=== PATIENT | female | born 1990 | race Caucasian/White ===

== ENCOUNTER 2017-09-05 17:19 | Emergency (ER) | payer SELFPAY ==
--- NOTE | 2017-09-05 17:45 | ER ---
Nurse's Notes [facility] Name: Alanna Dumont Age: 27 yrs Sex: Female : 1990 Arrival Date: 09/05/2017 Time: 17:21 Bed 27 Private MD: None, None Diagnosis: Cough Presentation: 09/05 17:25 Presenting complaint: Patient states: "I've had bronchitis for like a month and I have aj been to the ER in [place] twice and finished the medicine and I am not better.". Transition of care: patient was not received from another setting of care. Onset of symptoms was July 2017. Risk Assessment: Do you want to hurt yourself or someone else? Patient reports no desire to harm self or others. Care prior to arrival: None. 17:25 Method Of Arrival: Ambulatory 17:25 Acuity: LUIS FELIPE 4 aj 18:32 Initial Sepsis Screen: Does the patient meet any 2 criteria? No. Patient's initial lk1 sepsis screen is negative. Does the patient have a suspected source of infection? No. Patient's initial sepsis screen is negative. Triage Assessment: 17:26 General: Appears in no apparent distress. comfortable, Behavior is calm, cooperative, aj appropriate for age. Pain: Denies pain. Neuro: Level of Consciousness is awake, alert, obeys commands, Oriented to person, place, time, situation, Appropriate for age. Respiratory: Reports cough that is non-productive, Breath sounds are clear. Derm: Skin is intact, is healthy with good turgor, Skin is pink, warm \\T\\ dry. normal. 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 - Social history:: Smoking status: Patient/guardian denies using tobacco, Patient/guardian denies using alcohol, street drugs. - Ebola Screening: : No symptoms or risks identified at this time. Screenin:32 Abuse screen: Denies threats or abuse. Denies injuries from another. Nutritional lk1 screening: No deficits noted. Tuberculosis screening: No symptoms or risk factors identified. Fall Risk None identified. Assessment: 17:45 General: Appears in no apparent distress. Behavior is calm, cooperative, appropriate lk1 for age. Cardiovascular: Heart tones S1 S2 present Capillary refill is brisk. Respiratory: Reports shortness of breath on exertion cough that is dry, persistent Airway is patent Trachea midline Respiratory effort is even, unlabored, Respiratory pattern is regular, symmetrical, Breath sounds are clear bilaterally. EENT: No signs and/or symptoms were reported regarding the EENT system. Vital Signs: 17:26 BP 103 / 83; Pulse 74; Resp 16; Temp 98.2; Pulse Ox 98% on R/A; Weight 54.43 kg; Height aj 5 ft. 5 in. (165.10 cm); 17:26 Body Mass Index 19.97 (54.43 kg, 165.10 cm) aj ED Course: 17:21 Patient arrived in ED. mr 17:22 None, None is Private Physician. mr 17:26 Triage completed. aj 17:26 Arm band placed on left wrist. Patient placed in an exam room. aj 17:31 Kristi Neely FNP-C is [facility]. sn 17:31 Miguel Jeffrey MD is Attending Physician. snw 18:03 Delfina Dowling, ADAM is Primary Nurse. lk1 18:32 No provider procedures requiring assistance completed. Patient did not have IV access lk1 during this emergency room visit. 18:35 Patient has correct armband on for positive identification. Bed in low position. Call lk1 light in reach. Administered Medications: No medications were administered Outcome: 17:44 Discharge ordered by MD. snw 18:00 Discharged to home ambulatory, with family. lk1 18:00 Condition: good 18:00 Discharge instructions given to patient, family, Instructed on discharge instructions, follow up and referral plans. medication usage, safety practices, Demonstrated understanding of instructions, follow-up care, medications, Prescriptions given X 2. 18:03 Patient left the ED. lk1 Signatures: Rebecca Valentino RN RN aj Therrien, Shelly, FNP-C FNP-Alysha Hughes mr Delfina Dowling, RN RN lk1
--- NOTE | 2017-09-05 17:45 | EDPHYS ---
Physician Documentation [facility] Name: Alanna Dumont Age: 27 yrs Sex: Female : 1990 Arrival Date: 09/05/2017 Time: 17:21 Bed 27 Private MD: None, None ED Physician Miguel Jeffrey HPI: 09/05 17:45 This 27 yrs old Female presents to ER via Ambulatory with complaints of snw Cough, Congestion. 17:45 The patient or guardian reports cough. Onset: The symptoms/episode began/occurred snw gradually, 1 month(s) ago, and became persistent. Associated signs and symptoms: The patient has no apparent associated signs or symptoms. It is unknown whether or not the patient has had similar symptoms in the past. Seen at [facility] x 2, lost inhaler per report. 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 - Social history:: Smoking status: Patient/guardian denies using tobacco, Patient/guardian denies using alcohol, street drugs. - Ebola Screening: : No symptoms or risks identified at this time. ROS: 17:47 Constitutional: Negative for fever, chills, and weight loss, " just don't feel good" snw Eyes: Negative for injury, pain, redness, and discharge, ENT: Negative for injury, pain, and discharge, Neck: Negative for injury, pain, and swelling, Cardiovascular: Negative for chest pain, palpitations, and edema, Abdomen/GI: Negative for abdominal pain, nausea, vomiting, diarrhea, and constipation, Back: Negative for injury and pain, : Negative for injury, bleeding, discharge, and swelling, MS/Extremity: Negative for injury and deformity, Skin: Negative for injury, rash, and discoloration, Neuro: Negative for headache, weakness, numbness, tingling, and seizure. 17:47 Respiratory: Positive for cough, with no reported sputum. Exam: 17:43 Constitutional: This is a well developed, well nourished patient who is awake, alert, snw and in no acute distress. Head/Face: Normocephalic, atraumatic. Eyes: Pupils equal round and reactive to light, extra-ocular motions intact. Lids and lashes normal. Conjunctiva and sclera are non-icteric and not injected. Cornea within normal limits. Periorbital areas with no swelling, redness, or edema. ENT: Nares patent. No nasal discharge, no septal abnormalities noted. Tympanic membranes are normal and external auditory canals are clear. Oropharynx with no redness, swelling, or masses, exudates, or evidence of obstruction, uvula midline. Mucous membranes moist. Neck: Trachea midline, no thyromegaly or masses palpated, and no cervical lymphadenopathy. Supple, full range of motion without nuchal rigidity, or vertebral point tenderness. No Meningismus. Chest/axilla: Normal chest wall appearance and motion. Nontender with no deformity. No lesions are appreciated. Cardiovascular: Regular rate and rhythm with a normal S1 and S2. No gallops, murmurs, or rubs. Normal PMI, no JVD. No pulse deficits. Abdomen/GI: Soft, non-tender, with normal bowel sounds. No distension or tympany. No guarding or rebound. No evidence of tenderness throughout. Back: No spinal tenderness. No costovertebral tenderness. Full range of motion. Skin: Warm, dry with normal turgor. Normal color with no rashes, no lesions, and no evidence of cellulitis. MS/ Extremity: Pulses equal, no cyanosis. Neurovascular intact. Full, normal range of motion. Neuro: Awake and alert, GCS 15, oriented to person, place, time, and situation. Cranial nerves II-XII grossly intact. Motor strength 5/5 in all extremities. Sensory grossly intact. Cerebellar exam normal. Normal gait. 17:43 Respiratory: the patient does not display signs of respiratory distress, Respirations: normal, Breath sounds: wheezing: that is mild, bronchitic cough. Vital Signs: 17:26 BP 103 / 83; Pulse 74; Resp 16; Temp 98.2; Pulse Ox 98% on R/A; Weight 54.43 kg; Height aj 5 ft. 5 in. (165.10 cm); 17:26 Body Mass Index 19.97 (54.43 kg, 165.10 cm) aj MDM: 17:33 Patient medically screened. snw 17:46 Data reviewed: vital signs, nurses notes. Data interpreted: Pulse oximetry: on room air snw is 98 %. Interpretation: normal. Counseling: I had a detailed discussion with the patient and/or guardian regarding: the historical points, exam findings, and any diagnostic results supporting the discharge/admit diagnosis, the presence of at least one elevated blood pressure reading (>120/80) during this emergency department visit, the need for outpatient follow up, to return to the emergency department if symptoms worsen or persist or if there are any questions or concerns that arise at home. Administered Medications: No medications were administered Disposition: 22:14 Co-signature as Attending Physician, Miguel Jeffrey MD I agree with the assessment and kdr plan of care. Disposition: 09/05/17 17:44 Discharged to Home. Impression: Cough. - Condition is Stable. - Discharge Instructions: Cool Mist Vaporizers, Cough, Adult, [id number]. - Prescriptions for Zyrtec 10 mg Oral Tablet - take 1 tablet by ORAL route once daily As needed; 20 tablet. Albuterol Sulfate 90 mcg/actuation - inhale 1-2 puff by INHALATION route every 4-6 hours; 1 Inhaler. - Work release form, Medication Reconciliation Form, Thank You Letter, Antibiotic Education, Prescription Opioid Use form. - Follow up: Private Physician; When: 2 - 3 days; Reason: Recheck today's complaints, Continuance of care, Re-evaluation by your physician. Follow up: Emergency Department; When: As needed; Reason: Worsening of condition. Signatures: Rebecca Valentino RN RN aj Rittger, Kevin, MD MD kdr Therrien, Shelly, INSURANCE ACTUARY-C INSURANCE ACTUARY-Csnw Delifna Dowling RN RN lk1 Corrections: (The following items were deleted from the chart) 17:47 17:47 Constitutional: Negative for fever, chills, and weight loss, Eyes: Negative for snw injury, pain, redness, and discharge, ENT: Negative for injury, pain, and discharge, Neck: Negative for injury, pain, and swelling, Cardiovascular: Negative for chest pain, palpitations, and edema, Abdomen/GI: Negative for abdominal pain, nausea, vomiting, diarrhea, and constipation, Back: Negative for injury and pain, : Negative for injury, bleeding, discharge, and swelling, MS/Extremity: Negative for injury and deformity, Skin: Negative for injury, rash, and discoloration, Neuro: Negative for headache, weakness, numbness, tingling, and seizure, snw 18:03 17:44 09/05/2017 17:44 Discharged to Home. Impression: Cough. Condition is Stable. lk1 Forms are Medication Reconciliation Form, Thank You Letter, Antibiotic Education, Prescription Opioid Use. Follow up: Private Physician; When: 2 - 3 days; Reason: Recheck today's complaints, Continuance of care, Re-evaluation by your physician. Follow up: Emergency Department; When: As needed; Reason: Worsening of condition. snw
== END 2017-09-05 18:03 | disposition home or self-care (01) ==
LOC: ER 17:19
DX: R05 Cough (principal)
CPT/HCPCS: 99282

== ENCOUNTER 2017-12-16 12:50 | Emergency (ER) | payer SELFPAY ==
--- OUTSIDE RECORDS SUMMARY | 2017-12-16 12:52 | XMS REPORT ---
:1990 Author Organization eClinicalWorks Care Team Providers Name Role Phone Doyle Johnson Provider Role Unavailable Allergies, Adverse Reactions, Alerts Substance Reaction Event Type N.K.D.A. Info Not Available Non Drug Allergy Problems Problem Type Condition Code Onset Dates Condition Status Assessment Seasonal allergies J30.2 Active Assessment Mild intermittent asthma, J45.20 Active unspecified whether complicated Problem Seasonal allergies J30.2 Active Assessment Tobacco abuse counseling Z71.6 Active Medications Medication Code Code Instructions Start End Status Dosage System Date Date Cetirizine HCl [facility] 38508165525 10 MG Orally Active 1 tablet Once a day Claritin-D [address] [facility] 11631563840 5-120 MG Orally September 10, Nov 09, Active 1 tablet Hour every 12 hrs 2017 2017 as needed [facility] Fluticasone [facility] 58109627676 50 MCG/ACT September 10, Active 1 spray in Propionate Nasally Once a 2018 each day nostril ProAir HFA [facility] 99298054525 108 (90 Base) September 10, Active 2 puffs as MCG/ACT 2018 needed Inhalation every 6 hrs Results No Known Results Summary Purpose eClinicalWorks Submission
--- OUTSIDE RECORDS SUMMARY | 2017-12-16 12:52 | XMS REPORT ---
:1990 Author Organization e[employer] Care Team Providers Name Role Phone Doyle Johnson Provider Role Unavailable Allergies No Known Allergies Problems Problem Type Condition Code Onset Dates Condition Status Problem Seasonal allergies J30.2 Active Problem Gastroesophageal reflux disease K21.9 Active without esophagitis Assessment Gastroesophageal reflux disease K21.9 Active without esophagitis Assessment Oral aphthous ulcer K12.0 Active Medications Medication Code Code Instructions Start End Status Dosage System Date Date D 12 [facility] 38831658250 5-120 MG Orally September 10, Nov 09, Active 1 tablet Hour every 12 hrs 2017 2018 as needed [facility] Fluticasone [facility] 13432493907 50 MCG/ACT September 10, Active 1 spray in Propionate Nasally Once a 2018 each day nostril Benzocaine [facility] [address]-17 10 MG October 21, Dec Active 1 lozenge Mouth/Throat 2017 14, as needed every 2 hrs 2018 ProAir HFA ND 79518927538 108 (90 Base) September 10, Active 2 puffs as MCG/ACT 2018 needed Inhalation every 6 hrs GNP Omeprazole ND 69373490921 20 MG Orally October 21, Active 1 tablet Once a day 2018 Cetirizine HCl ND 79288665118 10 MG Orally Active 1 tablet Once a day Results No Known Results Summary Purpose eClinicalWorks Submission
--- OUTSIDE RECORDS SUMMARY | 2017-12-16 12:53 | XMS REPORT ---
[...] Start End Status Dosage System Date Date Benzocaine [facility] [address]-06 10 MG October 21Dec Active 1 lozenge Mouth/Throat 2017 14, as needed every 2 hrs 2018 GNP Omeprazole [facility] 09324396189 20 MG Orally October 21, Active 1 tablet Once a day 2018 ProAir HFA [facility] 41212450208 108 (90 Base) September 10, Active 2 puffs as MCG/ACT 2018 needed Inhalation every 6 hrs [facility] Fluticasone [facility] 18583979170 50 MCG/ACT September 10, Active 1 spray in Propionate Nasally Once a 2018 each day nostril Cetirizine HCl ND 36835795997 10 MG Orally Active 1 tablet Once a day Results No Known Results Summary Purpose eClinicalWorks Submission
--- NOTE | 2017-12-16 13:52 | EDPHYS ---
Physician Documentation [facility] Name: Alanna Dumont Age: 27 yrs Sex: Female : 1990 Arrival Date: 12/16/2017 Time: 12:54 Bed 25 Private MD: ED Physician Jose North HPI: 12/16 13:30 This 27 yrs old Female presents to ER via Ambulatory with complaints of Rash. pm1 13:30 The patient's rash thought to be caused by an unknown cause. The rash is located on the pm1 right arm, left arm, right leg and left leg. The rash can be described as urticarial. Onset: The symptoms/episode began/occurred 4 day(s) ago. Associated signs and symptoms: Pertinent positives: itching, Pertinent negatives: burning sensation, difficulty breathing, fever, swelling of lips, swelling of throat, swelling of tongue. Severity of symptoms: in the emergency department the symptoms are unchanged. The patient has not experienced similar symptoms in the past. [facility] and prescribed prednisone and Pepcid. Has not been taking any Benadryl for itching due to sleepiness. 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 - Social history:: Smoking status: Patient uses tobacco products, denies chronic smoking, but will smoke occasionally. - Ebola Screening: : No symptoms or risks identified at this time. ROS: 13:30 Constitutional: Negative for fever, chills, and weight loss, Eyes: Negative for injury, pm1 pain, redness, and discharge, ENT: Negative for injury, pain, and discharge, Neck: Negative for injury, pain, and swelling, Cardiovascular: Negative for chest pain, palpitations, and edema, Respiratory: Negative for shortness of breath, cough, wheezing, and pleuritic chest pain, Abdomen/GI: Negative for abdominal pain, nausea, vomiting, diarrhea, and constipation, Back: Negative for injury and pain, : Negative for injury, bleeding, discharge, and swelling, MS/Extremity: Negative for injury and deformity. 13:30 Neuro: Negative for headache, weakness, numbness, tingling, and seizure. 13:30 Skin: Positive for rash, of the soles of right foot and left foot, right arm, left arm, right leg and left leg. Exam: 13:30 Constitutional: This is a well developed, well nourished patient who is awake, alert, pm1 and in no acute distress. Head/Face: Normocephalic, atraumatic. Eyes: Pupils equal round and reactive to light, extra-ocular motions intact. Lids and lashes normal. Conjunctiva and sclera are non-icteric and not injected. Cornea within normal limits. Periorbital areas with no swelling, redness, or edema. ENT: Nares patent. No nasal discharge, no septal abnormalities noted. Tympanic membranes are normal and external auditory canals are clear. Oropharynx with no redness, swelling, or masses, exudates, or evidence of obstruction, uvula midline. Mucous membranes moist. Neck: Trachea midline, no thyromegaly or masses palpated, and no cervical lymphadenopathy. Supple, full range of motion without nuchal rigidity, or vertebral point tenderness. No Meningismus. Chest/axilla: Normal chest wall appearance and motion. Nontender with no deformity. No lesions are appreciated. Cardiovascular: Regular rate and rhythm with a normal S1 and S2. No gallops, murmurs, or rubs. Normal PMI, no JVD. No pulse deficits. Respiratory: Lungs have equal breath sounds bilaterally, clear to auscultation and percussion. No rales, rhonchi or wheezes noted. No increased work of breathing, no retractions or nasal flaring. Abdomen/GI: Soft, non-tender, with normal bowel sounds. No distension or tympany. No guarding or rebound. No evidence of tenderness throughout. Back: No spinal tenderness. No costovertebral tenderness. Full range of motion. 13:30 MS/ Extremity: Pulses equal, no cyanosis. Neurovascular intact. Full, normal range of motion. 13:30 Skin: Appearance: normal except for affected area, consistent with urticaria to right thigh, possibly scabies to soles of bilateral feet. 13:30 Neuro: Orientation: is normal, Motor: moves all fours. Vital Signs: 12:57 BP 108 / 75; Pulse 75; Resp 16 S; Temp 97.5(TE); Pulse Ox 98% on R/A; Weight 54.43 kg aa5 (R); Height 5 ft. 5 in. (165.10 cm) (R); Pain 0/10; 12:57 Body Mass Index 19.97 (54.43 kg, 165.10 cm) aa5 MDM: 13:08 Patient medically screened. pm1 13:50 Data reviewed: vital signs. Data interpreted: Pulse oximetry: on room air is 98 %. pm1 Interpretation: normal. Counseling: I had a detailed discussion with the patient and/or guardian regarding: the historical points, exam findings, and any diagnostic results supporting the discharge/admit diagnosis, the need for outpatient follow up, to return to the emergency department if symptoms worsen or persist or if there are any questions or concerns that arise at home. Administered Medications: 13:54 Drug: SOLU-Medrol 125 mg Route: IM; Site: right deltoid; aj 14:20 Follow up: Response: No adverse reaction; Other; Patient reports pain to IM site. yokasta Povider notified and ice pack provided 13:54 Drug: Benadryl 25 mg Route: PO; aj 14:21 Follow up: Response: No adverse reaction yokasta Disposition: 17:15 Co-signature as Attending Physician, Jose North MD. rn Disposition: 12/16/17 13:51 Discharged to Home. Impression: Rash and other nonspecific skin eruption. - Condition is Stable. - Discharge Instructions: Hives, Rash, Scabies, Adult. - Prescriptions for Elimite 5 % Topical Cream - apply 1 application by TOPICAL route one time Wash after 12 hours.; 60 gram. Medrol (Giancarlo) 4 mg Oral Tablets, Dose Pack - take 1 tablet by ORAL route as directed - follow package instructions; 1 packet. - Medication Reconciliation Form, Thank You Letter, Antibiotic Education form. - Follow up: Emergency Department; When: As needed; Reason: Worsening of condition. Follow up: Private Physician; When: 2 - 3 days; Reason: Recheck today's complaints, Continuance of care, Re-evaluation by your physician. - Problem is new. - Symptoms have improved. Signatures: Rebecca Valentino, RN Jose Barcenas MD MD rn Calderon, Audri, RN RN 5 Vj Kinney, JONNIE BIOMETRICS SPECIALIST pm1 Corrections: (The following items were deleted from the chart) 14:21 13:51 12/16/2017 13:51 Discharged to Home. Impression: Rash and other nonspecific skin aj eruption. Condition is Stable. Forms are Medication Reconciliation Form, Thank You Letter, Antibiotic Education, Prescription Opioid Use. Follow up: Emergency Department; When: As needed; Reason: Worsening of condition. Follow up: Private Physician; When: 2 - 3 days; Reason: Recheck today's complaints, Continuance of care, Re-evaluation by your physician. Problem is new. Symptoms have improved. pm1
--- NOTE | 2017-12-16 13:52 | ER ---
Nurse's Notes [facility] Name: Alanna Dumont Age: 27 yrs Sex: Female : 1990 Arrival Date: 12/16/2017 Time: 12:54 Bed 25 Private MD: Diagnosis: Rash and other nonspecific skin eruption Presentation: 12/16 12:54 Presenting complaint: Patient states: "I have all this bites all over my body and it's aa5 been 4 days already". Pt states "I went to [place] [facility] and I just started taking the prescription they gave me yesterday because the pharmacy was closed over the weekend". Transition of care: patient was not received from another setting of care. Onset of symptoms was December 2017. Risk Assessment: Do you want to hurt yourself or someone else? Patient reports no desire to harm self or others. Initial Sepsis Screen: Does the patient meet any 2 criteria? No. Patient's initial sepsis screen is negative. Does the patient have a suspected source of infection? No. Patient's initial sepsis screen is negative. Care prior to arrival: None. 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 - Social history:: Smoking status: Patient uses tobacco products, denies chronic smoking, but will smoke occasionally. - Ebola Screening: : No symptoms or risks identified at this time. Screenin:15 Abuse screen: Denies threats or abuse. Denies injuries from another. Nutritional aj screening: No deficits noted. Tuberculosis screening: No symptoms or risk factors identified. Fall Risk None identified. Assessment: 13:15 General: Appears in no apparent distress. uncomfortable, Behavior is calm, cooperative, aj appropriate for age. Pain: Denies pain. Neuro: Level of Consciousness is awake, alert, obeys commands, Oriented to person, place, time, situation, Appropriate for age. Respiratory: Airway is patent Respiratory effort is even, unlabored, Respiratory pattern is regular, symmetrical. Derm: Rash noted that is itchy, red, on buttocks, pelvis, right arm, left arm, right leg and left leg. 14:03 Reassessment: Patient reports pain and swelling at site of IM injection to right aj deltoid. No inflammation noted but patient is tender to touch at site. Provider notified and cold pack provided to patient. Vital Signs: 12:57 BP 108 / 75; Pulse 75; Resp 16 S; Temp 97.5(TE); Pulse Ox 98% on R/A; Weight 54.43 kg aa5 (R); Height 5 ft. 5 in. (165.10 cm) (R); Pain 0/10; 12:57 Body Mass Index 19.97 (54.43 kg, 165.10 cm) aa5 ED Course: 12:54 Patient arrived in ED. aa5 12:56 Triage completed. aa5 12:56 Arm band placed on. aa5 13:06 Rebecca Valentino, RN is Primary Nurse. aj 13:07 Vj Kinney NP is PHCP. pm1 13:07 Jose North MD is Attending Physician. pm1 13:15 Patient has correct armband on for positive identification. Bed in low position. Call aj light in reach. Adult w/ patient. 14:19 No provider procedures requiring assistance completed. Patient did not have IV access aj during this emergency room visit. Administered Medications: 13:54 Drug: SOLU-Medrol 125 mg Route: IM; Site: right deltoid; aj 14:20 Follow up: Response: No adverse reaction; Other; Patient reports pain to IM site. aj Povider notified and ice pack provided 13:54 Drug: Benadryl 25 mg Route: PO; aj 14:21 Follow up: Response: No adverse reaction aj Outcome: 13:51 Discharge ordered by . pm1 14:19 Discharged to home ambulatory, with family. aj 14:19 Condition: good 14:19 Discharge instructions given to patient, family, Instructed on discharge instructions, follow up and referral plans. medication usage, Demonstrated understanding of instructions, follow-up care, medications, Prescriptions given X 2. 14:21 Patient left the ED. aj Signatures: Rebecca Valentino RN Sofia Rutherford RN RN aa Vj Kinney NP SPA HOST pm1
[2017-12-16] MEDS ORDERED: METHYLPREDNISOLONE 125 MG INJ ONE (13:55)
[2017-12-16] MEDS ORDERED: DIPHENHYDRAMINE 25 MG TAB/CAP ONE (13:55)
== END 2017-12-16 14:21 | disposition home or self-care (01) ==
LOC: ER 12:50
DX: R21 Rash and other nonspecific skin eruption (principal); Z72.0 Tobacco use
CPT/HCPCS: 96372; 99283; J2930

== ENCOUNTER 2018-02-16 18:29 | Emergency (ER) | payer SELFPAY ==
--- OUTSIDE RECORDS SUMMARY | 2018-02-16 18:32 | XMS REPORT ---
[...] Status Dosage System Date Date Cetirizine HCl [facility] 76263526553 10 MG Orally Active 1 tablet Once a day Claritin-D 12 [facility] 26067827270 5-120 MG Orally September 10, Nov 09, Active 1 tablet Hour every 12 hrs 2017 2017 as needed [facility] Fluticasone [facility] 50873980726 50 MCG/ACT September 10, Active 1 spray in Propionate Nasally Once a 2018 each day nostril ProAir HFA [facility] 20897692407 108 (90 Base) September 10, Active 2 puffs as MCG/ACT 2018 needed Inhalation every 6 hrs Results No Known Results Summary Purpose eClinicalWorks Submission
--- OUTSIDE RECORDS SUMMARY | 2018-02-16 18:32 | XMS REPORT ---
[...] Status Dosage System Date Date D 12 [facility] 16209695240 5-120 MG Orally September 10, Nov 09, Active 1 tablet Hour every 12 hrs 2017 2018 as needed [facility] Fluticasone [facility] 03720522515 50 MCG/ACT September 10, Active 1 spray in Propionate Nasally Once a 2018 each day nostril Benzocaine [facility] [address]-84 10 MG October 21, Dec Active 1 lozenge Mouth/Throat 2017 14, as needed every 2 hrs 2018 ProAir HFA ND 64171627955 108 (90 Base) September 10, Active 2 puffs as MCG/ACT 2018 needed Inhalation every 6 hrs GNP Omeprazole ND 38041852274 20 MG Orally October 21, Active 1 tablet Once a day 2018 Cetirizine HCl ND 02360923855 10 MG Orally Active 1 tablet Once a day Results No Known Results Summary Purpose eClinicalWorks Submission
--- OUTSIDE RECORDS SUMMARY | 2018-02-16 18:32 | XMS REPORT ---
[...] End Status Dosage System Date Date Benzocaine [facility] [address]-22 10 MG October 21Dec Active 1 lozenge Mouth/Throat 2017 14, as needed every 2 hrs 2018 GNP Omeprazole [facility] 72593098561 20 MG Orally October 21, Active 1 tablet Once a day 2018 ProAir HFA [facility] 40341727315 108 (90 Base) September 10, Active 2 puffs as MCG/ACT 2018 needed Inhalation every 6 hrs [facility] Fluticasone [facility] 21444795099 50 MCG/ACT September 10, Active 1 spray in Propionate Nasally Once a 2018 each day nostril Cetirizine HCl ND 27954565630 10 MG Orally Active 1 tablet Once a day Results No Known Results Summary Purpose eClinicalWorks Submission
[2018-02-16] MEDS ORDERED: FAMOTIDINE 20 MG/2 ML VIAL IV ONE (19:32)
[2018-02-16] MEDS ORDERED: ONDANSETRON 4 MG/2 ML VIAL ONE (19:32)
[2018-02-16 19:48] LABS: Absolute Lymphocytes (CBC) 1.7 K/uL (0.7-4.9); Absolute Monocytes 0.6 K/uL (0.1-1.3); Absolute Neutrophil 5.8 K/uL (1.8-8.0); Basophils % 0.5 % (0-1.3); Hematocrit 35.2 % (36.0-45.0); Lymphocytes % 20.4 % (15.3-44.8); MCH 29.5 pg (27.0-35.0); MPV 7.6 fL (7.6-11.3); Monocytes % 7.4 % (3.3-12.3); RBC Red Blood Cell Count 4.19 M/uL (3.86-4.86)
[2018-02-16 20:01] LABS: Albumin 3.8 g/dL (3.4-5.0); Bilirubin Direct 0.1 mg/dL (0-0.2); Bilirubin Total 0.5 mg/dL (0.2-1.0); Potassium 3.8 mmol/L (3.5-5.1); Protein, Total 7.6 g/dL (6.4-8.2)
--- NOTE | 2018-02-16 20:03 | RAD REPORT ---
EXAM DESCRIPTION: US - Abdomen Exam Limited - 02/16/2018 7:47 pm CLINICAL HISTORY: Abdominal pain, epigastric pain COMPARISON: April 2008 FINDINGS: No gallstones, sludge or other abnormalities within the gallbladder lumen. There is no wal l thickening or pericholecystic fluid. No common duct stone or biliary tree dilatation identified. IMPRESSION: Normal gallbladder and biliary tree ultrasound.
[2018-02-16] MEDS ORDERED: MAGNE/ALUM HYDROXD 30 ML UCUP ONE (20:23)
[2018-02-16] MEDS ORDERED: LIDOCAINE VISCOUS 2% SOLN 15 ML UDC ONE (20:24)
[2018-02-16 21:26] LABS: Urine Blood TRACE (NEG); Urine Glucose NEGATIVE (NEG); Urine Protein 1+ (NEG); Urine Specific Gravity 1.015 (1.005-1.030); Urine pH 8.5 (5.0-7.0)
--- NOTE | 2018-02-16 21:36 | ER ---
Nurse's Notes [facility] Name: Alanna Dumont Age: 28 yrs Sex: Female : 1990 Arrival Date: 02/16/2018 Time: 18:32 Bed 14 Private MD: None, None Diagnosis: Epigastric pain Presentation: 02/16 18:38 Presenting complaint: Patient states: Burning pain in esophagus every time she eats for aj 3 days. Patient reports it took her an hour to finish her cheeseburger last night. Tried heartburn meds with no relief. Transition of care: patient was not received from another setting of care. Onset of symptoms was February 14, 2018. Risk Assessment: Do you want to hurt yourself or someone else? Patient reports no desire to harm self or others. Initial Sepsis Screen: Does the patient meet any 2 criteria? No. Patient's initial sepsis screen is negative. Does the patient have a suspected source of infection? No. Patient's initial sepsis screen is negative. Care prior to arrival: None. 18:38 Method Of Arrival: Ambulatory 18:38 Acuity: LUIS FELIPE 3 aj Triage Assessment: 18:40 General: Appears in no apparent distress. comfortable, Behavior is calm, cooperative, aj appropriate for age. Pain: Complains of pain in mid-sternal area. Neuro: Level of Consciousness is awake, alert, obeys commands, Oriented to person, place, time, situation, Appropriate for age. Respiratory: Airway is patent Respiratory effort is even, unlabored, Respiratory pattern is regular, symmetrical. GI: Reports epigastric pain, indigestion. Derm: Skin is intact, is healthy with good turgor, Skin is pink, warm \T\ dry. normal. 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 - Social history:: Smoking status: Patient/guardian denies using tobacco. - Ebola Screening: : Patient negative for fever greater than or equal to 101.5 degrees Fahrenheit, and additional compatible Ebola Virus Disease symptoms Patient denies exposure to infectious person Patient denies travel to an Ebola-affected area in the 21 days before illness onset No symptoms or risks identified at this time. Screenin:15 Abuse screen: Denies threats or abuse. Denies injuries from another. Nutritional cc3 screening: No deficits noted. Tuberculosis screening: No symptoms or risk factors identified. Fall Risk Ambulatory Aid- None/Bed Rest/Nurse Assist (0 pts). Gait- Normal/Bed Rest/Wheelchair (0 pts) Mental Status- Oriented to own ability (0 pts). Assessment: 19:15 GI: Bowel sounds present X 4 quads. Abd is soft and non tender X 4 quads. cc3 20:30 Reassessment: Patient appears in no apparent distress at this time. Patient and/or cc3 family updated on plan of care and expected duration. Pain level reassessed. Patient is alert, oriented x 3, equal unlabored respirations, skin warm/dry/pink. 21:45 Reassessment: Patient appears in no apparent distress at this time. Patient and/or cc3 family updated on plan of care and expected duration. Pain level reassessed. Patient is alert, oriented x 3, equal unlabored respirations, skin warm/dry/pink. NIURKA Galindo discharged the patient home with prescription given. IV cannula removed and patient left ER vitally stable and ambulatory with . Vital Signs: 18:40 BP 99 / 64; Pulse 98; Resp 19; Temp 98.9; Pulse Ox 98% on R/A; Weight 56.7 kg; Height 5 aj ft. 4 in. (162.56 cm); 19:30 BP 109 / 64; Pulse 97; Resp 17 S; Pulse Ox 98% on R/A; cc3 20:15 BP 107 / 53; Pulse 95; Resp 17 S; Pulse Ox 98% on R/A; cc3 21:20 BP 103 / 57; Pulse 89; Resp 18 S; Pulse Ox 99% on R/A; cc3 18:40 Body Mass Index 21.46 (56.70 kg, 162.56 cm) ED Course: 18:32 Patient arrived in ED. mr 18:33 None, None is Private Physician. mr 18:39 Triage completed. aj 18:40 Arm band placed on left wrist. Patient placed in an exam room. aj 18:43 William Galindo PA is PHCP. cp 18:43 Matt Jaime MD is Attending Physician. cp 19:01 Urine collected: clean catch specimen, cloudy. mh5 19:15 Patient has correct armband on for positive identification. Bed in low position. Call cc3 light in reach. Side rails up X 1. bus monitor on. Pulse ox on. NIBP on. 19:19 Zahida Flower is Primary Nurse. cc3 19:30 Inserted saline lock: 20 gauge in right antecubital area, using aseptic technique. cc3 Blood collected. 19:47 Ultrasound completed. Patient tolerated well. sg3 19:47 US Abdomen Limited In Process Unspecified. EDMS 20:57 XRAY Chest (1 view) In Process Unspecified. EDMS 21:34 Wilberto Diez MD is Referral Physician. cp 21:45 No provider procedures requiring assistance completed. IV discontinued, intact, cc3 bleeding controlled, No redness/swelling at site. Pressure dressing applied. Administered Medications: 19:30 Drug: Pepcid 20 mg Route: IVP; Site: right antecubital; cc3 20:00 Follow up: Response: No adverse reaction; Pain is decreased cc3 19:33 Drug: Zofran 4 mg Route: IVP; Site: right antecubital; cc3 20:00 Follow up: Response: No adverse reaction; Nausea is decreased cc3 20:15 Drug: GI Cocktail without - (Maalox Suspension 30 ml, Lidocaine Liquid 2 % 15 cc3 ml) Route: PO; 21:00 Follow up: Response: No adverse reaction; Pain is decreased cc3 Outcome: 21:35 Discharge ordered by MD. cp 21:45 Discharged to home ambulatory, with family. cc3 21:45 Condition: stable 21:45 Discharge instructions given to patient, family, Instructed on discharge instructions, follow up and referral plans. medication usage, Demonstrated understanding of instructions, follow-up care, medications, Prescriptions given X 2. 21:50 Patient left the ED. cc3 Signatures: Dispatcher [employer] Rebecca Lin RN RN aj Rivera, William Rizvi PA PA cp Martinez, Maria Mariam Williamson 3 Zahida Flower cc3 Corrections: (The following items were deleted from the chart) 18:41 18:40 Arm band placed on left wrist. Patient placed in waiting room, Patient notified aj of wait time yokasta
--- NOTE | 2018-02-16 21:36 | EDPHYS ---
Physician Documentation [facility] Name: Alanna Dumont Age: 28 yrs Sex: Female : 1990 Arrival Date: 02/16/2018 Time: 18:32 Bed 14 Private MD: None, None ED Physician Matt Jaime HPI: 02/16 19:10 This 28 yrs old Female presents to ER via Ambulatory with complaints of cp Abdominal Pain. 19:10 The patient presents with abdominal pain in the epigastric area. Onset: The cp symptoms/episode began/occurred 3 day(s) ago. The symptoms radiate to chest. Associated signs and symptoms: Pertinent positives: chest pain, nausea, Pertinent negatives: blood in stools, constipation, diarrhea, dysuria, fever, palpitations, shortness of breath, vomiting. The symptoms are described as burning. Modifying factors: the symptoms are aggravated by food. 19:10 Severity of pain: in the emergency department the pain is unchanged despite home cp interventions. 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 - Social history:: Smoking status: Patient/guardian denies using tobacco. - Ebola Screening: : Patient negative for fever greater than or equal to 101.5 degrees Fahrenheit, and additional compatible Ebola Virus Disease symptoms Patient denies exposure to infectious person Patient denies travel to an Ebola-affected area in the 21 days before illness onset No symptoms or risks identified at this time. ROS: 19:18 Constitutional: Negative for body aches, chills, fever, poor PO intake. cp 19:18 Eyes: Negative for injury, pain, redness, and discharge. cp 19:18 ENT: Negative for drainage from ear(s), ear pain, sore throat, difficulty swallowing, difficulty handling secretions. 19:18 Cardiovascular: Positive for chest pain, Negative for edema, palpitations. 19:18 Respiratory: Negative for cough, shortness of breath, wheezing. 19:18 Abdomen/GI: Positive for abdominal pain, nausea, of the epigastric area, Negative for vomiting, diarrhea, constipation, anorexia, dysphagia, black/tarry stool, rectal bleeding. 19:18 Back: Negative for injury or acute deformity, radiated pain. 19:18 : Negative for urinary symptoms. 19:18 Skin: Negative for cellulitis, rash. 19:18 Neuro: Negative for altered mental status, headache, weakness. 19:18 All other systems are negative. Exam: 19:30 Constitutional: The patient appears in no acute distress, alert, awake, cp non-diaphoretic, non-toxic, well developed, well nourished. 19:30 Head/Face: Normocephalic, atraumatic. cp 19:30 Eyes: Periorbital structures: appear normal, Conjunctiva: normal, no exudate, no injection, Lids and lashes: appear normal, bilaterally. 19:30 ENT: External ear(s): are unremarkable, Ear canal(s): are normal, clear, TM's: are normal, Nose: is normal, Mouth: is normal, Posterior pharynx: is normal, airway is patent, no erythema, no exudate. 19:30 Neck: ROM/movement: is normal, is supple, without pain, no range of motions limitations, no nuchal rigidity. 19:30 Chest/axilla: Inspection: normal, Palpation: is normal, no crepitus, no tenderness. 19:30 Cardiovascular: Rate: normal, Rhythm: regular, Heart sounds: murmur, not appreciated, rub, not appreciated, gallop, not appreciated. 19:30 Respiratory: the patient does not display signs of respiratory distress, Respirations: normal, no use of accessory muscles, no retractions, no splinting, no tachypnea, labored breathing, is not present, Breath sounds: are clear throughout, no decreased breath sounds, no stridor, no wheezing. 19:30 Abdomen/GI: Inspection: abdomen appears normal, Bowel sounds: active, all quadrants, Palpation: soft, in all quadrants, mild abdominal tenderness, in the epigastric area, rebound tenderness, is not appreciated, voluntary guarding, is not appreciated, involuntary guarding, is not appreciated. 19:30 Back: pain, is absent, ROM is normal. 19:30 Skin: cellulitis, is not appreciated, no rash present. 19:30 Neuro: Orientation: to person, place \T\ time. Mentation: is normal, Cerebellar function: is grossly normal, Motor: moves all fours, strength is normal, Sensation: is normal. 20:07 ECG was reviewed by the Attending Physician. Vital Signs: 18:40 BP 99 / 64; Pulse 98; Resp 19; Temp 98.9; Pulse Ox 98% on R/A; Weight 56.7 kg; Height 5 aj ft. 4 in. (162.56 cm); 19:30 BP 109 / 64; Pulse 97; Resp 17 S; Pulse Ox 98% on R/A; cc3 20:15 BP 107 / 53; Pulse 95; Resp 17 S; Pulse Ox 98% on R/A; cc3 21:20 BP 103 / 57; Pulse 89; Resp 18 S; Pulse Ox 99% on R/A; cc3 18:40 Body Mass Index 21.46 (56.70 kg, 162.56 cm) aj MDM: 18:43 Patient medically screened. cp 20:00 Differential diagnosis: cholecystitis, Cholelithiasis, gastritis, gastroesophageal cp reflux disease, pancreatitis, Pyelonephritis, Ureterolithiasis, urinary tract infection. 21:33 Data reviewed: vital signs, nurses notes, lab test result(s), radiologic studies, cp ultrasound. 21:33 Counseling: I had a detailed discussion with the patient and/or guardian regarding: the cp historical points, exam findings, and any diagnostic results supporting the discharge/admit diagnosis, lab results, radiology results, to return to the emergency department if symptoms worsen or persist or if there are any questions or concerns that arise at home. Response to treatment: the patient's symptoms have markedly improved after treatment, VSS. Labs and US results reviewed and negative for acute findings. Pain improved. Will discharge to home for continued monitoring. 02/16 19:05 Order name: Urine Dipstick--Ancillary (enter results); Complete Time: 21:29 ms 02/16 21:30 Interpretation: Normal except: UKET 1+; UBLD TRACE; UPH 8.5; UPROT 1+. cp 02/16 19:05 Order name: Urine --Ancillary (enter results); Complete Time: 21:29 ms 02/16 19:18 Order name: Basic Metabolic Panel; Complete Time: 20:06 cp 02/16 20:06 Interpretation: Normal except: CL 108; GLUC 109; GFR 87. cp 02/16 19:18 Order name: CBC with Diff; Complete Time: 20:06 02/16 19:18 Order name: Creatinine for Radiology; Complete Time: 20:06 02/16 19:18 Order name: Hepatic Function; Complete Time: 20:06 02/16 19:18 Order name: Lipase; Complete Time: 20:06 02/16 19:18 Order name: US Abdomen Limited; Complete Time: 20:06 02/16 19:18 Order name: Magnesium; Complete Time: 20:06 02/16 19:18 Order name: EKG; Complete Time: 19:19 02/16 20:07 Order name: XRAY Chest (1 view) 02/16 19:18 Order name: IV Saline Lock; Complete Time: 20:08 02/16 19:18 Order name: Labs collected and sent; Complete Time: 20:08 02/16 19:18 Order name: NPO; Complete Time: 19:20 02/16 19:18 Order name: EKG - Nurse/Tech; Complete Time: 20:08 EC:07 Rate is 70 beats/min. Rhythm is regular. NH interval is normal. QRS interval is normal. cp QT interval is normal. T waves are Inverted in lead III. Interpreted by me. Reviewed by me. Administered Medications: 19:30 Drug: Pepcid 20 mg Route: IVP; Site: right antecubital; cc3 20:00 Follow up: Response: No adverse reaction; Pain is decreased cc3 19:33 Drug: Zofran 4 mg Route: IVP; Site: right antecubital; cc3 20:00 Follow up: Response: No adverse reaction; Nausea is decreased cc3 20:15 Drug: GI Cocktail without - (Maalox Suspension 30 ml, Lidocaine Liquid 2 % 15 cc3 ml) Route: PO; 21:00 Follow up: Response: No adverse reaction; Pain is decreased cc3 Disposition: 02/16/18 21:35 Discharged to Home. Impression: Epigastric pain. - Condition is Stable. - Discharge Instructions: Abdominal Pain, Adult, Gastroesophageal Reflux Disease, Adult. - Prescriptions for Protonix 40 mg Oral Tablet - take 1 tablet by ORAL route once daily; 30 tablet. Zofran 4 mg Oral Tablet - take 1 tablet by ORAL route every 12 hours As needed; 20 tablet. - Medication Reconciliation Form, Thank You Letter, Antibiotic Education, Prescription Opioid Use form. - Follow up: Wilberto Diez MD; When: 1 week; Reason: if symptoms continue. - Problem is new. - Symptoms have improved. Signatures: Dispatcher [employer] Rebecca Lin, RN RN William Buck PA PA cp Zahida Flower cc3 Corrections: (The following items were deleted from the chart) 21:50 21:35 02/16/2018 21:35 Discharged to Home. Impression: Epigastric pain. Condition is cc3 Stable. Forms are Medication Reconciliation Form, Thank You Letter, Antibiotic Education, Prescription Opioid Use. Follow up: Wilberto Diez; When: 1 week; Reason: if symptoms continue. Problem is new. Symptoms have improved. cp
--- NOTE | 2018-02-16 21:55 | RAD REPORT ---
EXAM DESCRIPTION: RAD - Chest Single View - 02/16/2018 8:57 pm CLINICAL HISTORY: Upper abdominal pain COMPARISON: April 2008 TECHNIQUE: AP portable chest image was obtained 2014 hours . FINDINGS: Lungs are clear. Heart and vasculature are normal. No measurable pleural effusion and no p neumothorax. No acute bony abnormality seen. No acute aortic findings suspected. IMPRESSION: No acute cardiopulmonary process. No significant change from comparison.
--- NOTE | 2018-02-17 07:03 | EKG ---
Test Date: 2018-02-16 Test Time: 19:55:17 Analytical Manager: MELODIE MEASUREMENT RESULTS: Intervals: Rate: 86 NJ: 152 QRSD: 86 QT: 374 QTc: 447 [place]: P: 59 NJ: 152 QRS: 56 T: -6 INTERPRETIVE STATEMENTS: Normal sinus rhythm Nonspecific T wave abnormality Abnormal ECG Compared to ECG 06/28/2016 19:17:14 T-wave abnormality now present Electronically Signed On 02-17-18 07:02:21 ASSISTANT SALES MANAGER by Rene Cruz
--- NOTE | 2018-02-17 07:18 | EKG ---
Test Date: 2018-02-16 Test Time: 19:55:52 In Shop Service Technician: MELODIE MEASUREMENT RESULTS: Intervals: Rate: 70 MI: 156 QRSD: 84 QT: 368 QTc: 397 [place]: P: 60 MI: 156 QRS: 56 T: 6 INTERPRETIVE STATEMENTS: Normal sinus rhythm with sinus arrhythmia Normal ECG Compared to ECG 02/16/2018 19:55:17 T-wave abnormality no longer present Electronically Signed On 02-17-18 07:18:25 RAIL TRACK MAINTAINER by Sergio Jean
== END 2018-02-16 21:50 | disposition home or self-care (01) ==
LOC: ER 18:29
DX: R10.13 Epigastric pain (principal)
CPT/HCPCS: 36415; 71045; 76705; 80048; 80076; 81003; 81025; 83690; 83735; 85025; 93005; 96374; 96375; 99284; J2405

== ENCOUNTER 2020-07-28 14:56 | Emergency (ER) | payer OTHER, SELFPAY ==
--- OUTSIDE RECORDS SUMMARY | 2020-07-28 14:59 | XMS REPORT | Continuity of Care Document ---
:1990 Author Organization [facility] t Address 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 Medications Ordered Filled Start Stop Current Ordering Indication Dosage Frequency Signature Comments Components Source Medication Medication Date Date Medication? Clinician (SIG) Name Name GNP GNP Yes Doyle [address] Omeprazole Omeprazole 7-16 Alex Jia kes - 00:00: [facility] Benzocaine Benzocaine 2018- No Doyle [address] 7-16 09-14 Alex as needed [facility] - 00:00: 00:00 [facility] 00 :[facility] l [facility] Yes Doyle 1 spray in [facility] Fluticasone Fluticasone 6-05 Alex each [facility] - Propionate Propionate 00:00: nostril [facility] ProAir HFA ProAir HFA 2018-0 Yes Doyle [address] 6-05 Alex needed [facility] - 00:[facility]: [facility] Cetirizine Cetirizine Yes Doyle [address] HCl HCl Alex [facility] Procedures This patient has no known procedures. Encounters Start End Encounter Admission Attending Care Care Encounter Source Date/Time Date/Time Type Type Clinicians Facility Department ID 2020-02-26 2020-02-26 Emergency Vic [facility] [id number] 16:35:00 16:59:00 Tamiahansa Javed [id number] [place] [id number] [place] [id number] 2020-02-26 2020-02-26 Orders Doctor AMOS [id number] 00:00:00 00:00:00 Only Unassigned, VENTURA [id number] [place] [id number] 2017-11-11 2017-11-11 [facility] [id number] [address] 15:45:00 15:45:00 [facility] 2017-10-21 2017-10-21 [facility] [id number] 13:15:00 13:15:00 [facility] Outpat[facility] ent Clinics 2017-09-10 2017-09-10 [facility] [id number] 15:00:00 15:00:00 [facility] Outpat[facility] ent Clinics Results This patient has no known results.
--- NOTE | 2020-07-28 16:35 | ER ---
Nurse's Notes [facility] [place] [facility] Name: Alanna Dumont Age: 30 yrs Sex: Female : 1990 Arrival Date: 07/28/2020 Time: 14:57 Bed Waiting Private MD: Diagnosis: Presentation: 07/28 15:17 Chief complaint: Patient states: 7 weeks , started bleeding yesterday. Now ca1 cramping and pelvic and back pain that feels like contractions. Coronavirus screen: Client denies travel out of the [place] in the last 14 days. At this time, the client does not indicate any symptoms associated with coronavirus-19. Ebola Screen: Patient negative for fever greater than or equal to 101.5 degrees Fahrenheit, and additional compatible Ebola Virus Disease symptoms Patient denies exposure to infectious person. Patient denies travel to an Ebola-affected area in the 21 days before illness onset. No symptoms or risks identified at this time. Initial Sepsis Screen: Does the patient meet any 2 criteria? No. Patient's initial sepsis screen is negative. Does the patient have a suspected source of infection? No. Patient's initial sepsis screen is negative. Risk Assessment: Do you want to hurt yourself or someone else? Patient reports no desire to harm self or others. Onset of symptoms was July 27, 2020. 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 - Social history:: Smoking status: Patient denies any tobacco usage or history of. Vital Signs: 15:17 BP 104 / 76; Pulse 88; Resp 16 S; Temp 98.5(TE); Pulse Ox 100% on R/A; Weight 55.34 kg ca1 (R); Height 5 ft. 4 in. (162.56 cm) (R); Pain 8/10; 15:17 Body Mass Index 20.94 (55.34 kg, 162.56 cm) ca1 ED Course: 14:57 Patient arrived in ED. am2 15:18 Triage completed. ca1 15:19 Arm band placed on right wrist. ca1 16:05 Patient's name was called from ER lobby. No response. aa5 16:06 Jose North MD is Attending Physician. rn 16:32 Olimpia Lenz, RN is Primary Nurse. tw2 Administered Medications: No medications were administered Outcome: 16:34 Patient left the ED. ca1 Signatures: Jose North MD MD rn Calderon, Audri RN RN aa5 Olimpia Lenz, RN RN tw2 Rebecca Bradford am2 Jacqueline Peres RN RN ca1
--- NOTE | 2020-07-28 16:35 | EDPHYS ---
Physician Documentation [facility] Name: Alanna Dumont Age: 30 yrs Sex: Female : 1990 Arrival Date: 07/28/2020 Time: 14:57 Bed Waiting Private MD: YASIR Physician [employer]: 07/28 15:19 LMP 06/04/2020 ca1 Historical: - Allergies: 15:19 No Known Allergies; ca1 - Home Meds: 15:19 None [Active]; ca1 - PMHx: 15:19 None; ca1 - PSHx: 15:19 None; ca1 - Immunization history:: Flu vaccine is not up to date. - Social history:: Smoking status: Patient denies any tobacco usage or history of. Vital Signs: 15:17 BP 104 / 76; Pulse 88; Resp 16 S; Temp 98.5(TE); Pulse Ox 100% on R/A; Weight 55.34 kg ca1 (R); Height 5 ft. 4 in. (162.56 cm) (R); Pain 8/10; 15:17 Body Mass Index 20.94 (55.34 kg, 162.56 cm) ca1 MDM: 07/28 16:08 Order name: Urine Test (obtain specimen) rn 07/28 16:08 Order name: IV Saline Lock rn 07/28 16:08 Order name: Labs collected and sent rn 07/28 16:08 Order name: Urine Dipstick-Ancillary (obtain specimen) rn Administered Medications: No medications were administered Disposition: 07/28/20 16:34 Patient left the facility post triage evaluation and consult. - Patient left due to (see nurse's notes). Signatures: Dispatcher [employer] EDJose Carrillo MD MD rn Acob, Cheryl, RN RN ca1 Corrections: (The following items were deleted from the chart) 16:08 16:06 Patient medically screened. rn rn
[2020-07-28 16:39] VITALS: BP 104/76; TEMP 98.5; O2SAT 100
== END 2020-07-28 16:34 | disposition left against medical advice (07) ==
LOC: ER 14:56
DX: Z53.21 Procedure and treatment not carried out due to patient leaving prior to being seen by health care provider (principal)
CPT/HCPCS: 99281

== ENCOUNTER 2021-04-26 11:47 | Emergency (ER) | payer SELFPAY ==
--- OUTSIDE RECORDS SUMMARY | 2021-04-26 11:50 | XMS REPORT | Continuity of Care Document ---
:1990 Author Organization [facility] t Address [address] [place] [address] Care Team Providers Name Role Phone Pcp, Does Not Have A Primary Care Physician Fili HICKMAN S Attending Clinician Romario DAVIS S Attending Clinician Vic CHOWDARY Attending Clinician Doctor Unassigned, Name Attending Clinician Unavailable Payers Payer Name Policy Type Policy Number Effective Date Expiration Date S ource [place] [id number] 2020 00:00:00 Problems Condition Condition Condition Status Onset Resolution Last Treating Co mments Source Name Details Category Date Date Treatment Clinician Date Vaginal Vaginal Disease Active Univers odor odor 4-24 ity of 00:00: [address] Vaginal Vaginal Disease Active Univers discharge discharge 4-24 ity of 00:00: [address] Screening Screening Disease Active Uni vers for STD for STD 04-16 [place] of (sexually ([place] transmit[place] transmit[place] 00 Me dical d disease) d disease) Br anch Other Other Disease Active 2015-04 Univers general general -03 [place] of counseling [place] and advice 00 [place] dical for for Branch contracept contracept jessica jessica management management Seasonal Seasonal Problem Active [facility] Gastroesop Gastroesop Diagnosis Active [facility] hageal hageal [facility] - reflux reflux 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 Social History Social Habit Start Date Stop Date Quantity Comments Source Exposure to Not sure [facility] SARS-CoV-2 [facility] (event) Branch Tobacco use and 2020-12-07 2020-12-07 Never used Universit y of exposure 00:00:00 00:00:00 [facility] Alcohol intake 2020-12-07 2020-12-07 Current University 00:00:00 00:00:00 non-drinker of [facility] alcohol (finding) Branch History of 2013-09-10 Cigarette Smoker [facility] of tobacco use 00:00:00 [facility] Alcohol Comment 2012-10-15 2012-10-15 Occasional ETOH [facility] ersity of 00:00:00 00:00:00 [facility] [birth year] [facility] 00[facility]00:00 [facility] Smoking Status Start Date Stop Date Source Former smoker 2020-12-07 00:00:00 2020-12-07 00:00:00 [facility] Medications Ordered Filled Start Stop Current Ordering Indication Dosage Frequency Signature Comments Components Source Medication Medication Date Date Medication? Clinician (SIG) Name Name ketorolac 30mg 30 mg, Unive rs (TORADOL) 12-08 Slow IV ity of injection 02:11: 02:16 [place], [place] 30 mg 00 :00 ONCE, 1 Medical dose, [facility] Branch 12/07/20 at 2115, JAMES
Fa culty member approving Restricted medication : DREA JAMIL benzonatate Yes [id number] 200mg Take 1 Univers 200 mg 12-07 capsule by ity of capsule 00:00: mouth 3 [place] 00 (three) Medical times Branch daily as needed for Cough. ondansetron Yes [id number] 4mg Take 1 Univers (ZOFRAN) 4 tablet by ity of mg tablet 00:00: mouth [place] 00 every 8 Medical (eight) Branch hours as needed for Nausea and Vomiting (N/V). traMADoL Yes [id number] 50mg Take 1 Univers (ULTRAM) 50 9- tablet by ity of mg tablet 00:00: mouth [place] 00 every 6 Medical (six) Branch hours as needed for Pain (scale 7-10). Indication s: acute pain acetaminoph Yes 4647 1{tbl} Take 1 Un viktoriya en-codeine 4-22 tablet by ity of 300-30 mg 00:00: mouth [place] tablet 00 every 4 Medical (four) Branch hours as needed for Pain (scale 4-6). Indication s: acute pain naproxen Yes [id number] 500mg Take 1 U nivers (NAPROSYN) 4-22 tablet by ity of 500 mg 00:00: mouth 2 [place] tablet 00 (two) Medical times Branch daily with meals. famotidine Yes 20mg Take 1 Unive rs (PEPCID) 20 12-14 tablet by ity of mg tablet 00:00: mouth 2 [place] 00 (two) Medical times Branch daily. GNP GNP Yes Doyle 1 tablet [facility] [...] Outpati ent Clinics ProAir HFA ProAir HFA Yes Doyle [address] 6-05 Alex needed [facility] - 00:00: [facility] 00 l Outpati ent Clinics benzonatate Yes 100mg Take 1 Uni vers 100 mg 4-17 capsule by ity of capsule 00:00: mouth 3 [place] 00 (three) Medical times Branch daily as needed for Cough. metroNIDAZO 2016-04 Yes [id number] 500mg Take 1 Univers LE (FLAGYL) 04-16 tablet by ity of 500 mg 00:00: mouth 2 [place] tablet 00 (two) Medical times [place] daily. medroxyPROG Yes [id number] 150mg Univers ESTERone -24 ity of (DEPO-PROVE 20:15: [place] RA) 00 Medical injection Branch 150 mg Cetirizine Cetirizine Yes Doyle [address] [facility] Immunizations Ordered Filled Immunization Date Status Comments Sour e Immunization Name Name HPV9 2017-08-14 Completed University 00:00:00 [facility] 2017-04-16 Completed University 00:00:00 [facility] 2017-02-14 Completed University 00:00:00 [facility] PPD (TB) 2008-06-01 Completed University 00:00:00 [facility] Td 2007-04-08 Completed [facility] 00:00:00 [facility] Vital Signs Vital Name Observation Time Observation Value Comments Source Systolic blood 2020-12-08 02:00:00 104 mm[Hg] Univer sity of pressure [facility] Diastolic blood 2020-12-08 02:00:00 70 mm[Hg] Unive rsity of [facility] Heart rate 2020-12-08 02:00:00 68 /min [facility] Respiratory rate 2020-12-08 02:00:00 18 /min [facility] Oxygen saturation in 2020-12-08 02:00:00 99 /min [facility] Arterial blood by [facility] Pulse oximetry Branch Body temperature 2020-12-08 01:00:00 37.28 Mitra [facility] Body height 2020-12-07 23:28:00 160 cm [facility] Body weight 2020-12-07 23:28:00 52.164 kg [facility] BMI 2020-12-07 23:28:00 20.37 kg/m2 [facility] Procedures Procedure Date / Time Performed Performing Clinician Sour e XR CHEST 1 VW 2020-12-08 02:24:09 Drea Jamil [facility] COMP. METABOLIC PANEL 2020-12-08 01:08:00 Drea Jamil [facility] ([id number]) Medical [place] CBC WITH DIFF 2020-12-08 01:08:00 Drea Jamil [facility] URINALYSIS 2020-12-08 01:08:00 Drea Jamil [facility] EBV-MONONUCLEOSIS 2020-12-08 01:08:00 Dera Jamil [facility] SCREEN [facility] Branch RAPID STREP SCREEN FOR 2020-12-08 01:08:00 Drea Jamil [facility] GROUP A Medical Branch COVID-19 (ID NOW RAPID 2020-12-08 01:08:00 Drea Jamil [facility] TESTING) [facility] POCT TEST 2020-12-08 01:05:00 Drea Jamil [facility] NOTICE OF PRIVACY 2020-12-07 23:19:59 Doctor Unassigned, No [facility] PRACTICES Name [facility] CONSENT/REFUSAL FOR 2020-12-07 23:18:56 Doctor Unassigned, No [facility] DIAGNOSIS AND Name [facility] TREATMENT Encounters Start End Encounter Admission Attending Care Care Encounter Source Date/Time Date/Time Type Type Clinicians Facility Department ID 2021-02-06 Emergency [facility] [id number] Univers 19:48:10 ity [facility] 2021-02-05 Emergency [facility] [id number] [facility]04 [facility] [id number] [facility] 2020-12-07 2020-12-07 Emergency [facility] [id number] Univers 18:30:00 22:51:00 Drea Jamil [place] [id number] ity [facility] [id number] [facility] [id number] [place] [address] Branch 2020-02-26 2020-02-26 [facility] [id number] 16:35:00 16:59:00 Raquel Burt [id number] [place] [id number] [place] [id number] 2020-02-26 2020-02-26 Orders Doctor BETTE [id number] 00:00:00 00:00:00 Only Unassigned, VENTURA [id number] [place] [id number] 2017-11-11 2017-11-11 [facility] [id number] 15:45:00 15:45:00 [facility] 2017-10-21 2017-10-21 [facility] [id number] 13:15:00 13:15:00 [facility] 2017-09-10 2017-09-10 [facility] [id number] 15:00:00 15:00:00 [facility] Results Test Description Test Time Test Comments Results Result Comments Source CBC WITH DIFF 2020-12-08 02:41:11 Test Item Value Reference Range Interpretation Comme nts WBC (test code = 6690-2) See_Comment L [A utomated message] The system which ge nerated this result transmit natasha reference range: 4.30 - 1 1.10 10*3/?L. The reference r sera was not used to interpr et this result as normal/abnor mal. RBC (test code = 789-8) See_Comment [Au tomated message] The system which ge nerated this result transmit natasha reference range: 3.93 - 5 .25 10*6/?L. The reference r sera was not used to interpr et this result as normal/abnor mal. HGB (test code = 718-7) 12.8 g/dL 11.6-15.0 HCT (test code = 4544-3) 38.6 % 35.7-45.2 MCV (test code = 787-2) 84.3 fL 80.6-95.5 MCH (test code = 785-6) 27.9 pg 25.9-32.8 MCHC (test code = 786-4) 33.2 g/dL 31.6-35.1 RDW-SD (test code = 65866-2) 36.7 fL 39.0-49.9 L RDW-CV (test code = 788-0) 12.1 % 12.0-15.5 PLT (test code = 777-3) See_Comment [Au tomated message] The system which ge nerated this result transmit natasha reference range: 166 - 35 8 10*3/?L. The reference range was not used to interpret th is result as normal/abnormal . MPV (test code = 28610-1) 9.9 fL 9.5-12.9 NRBC/100 WBC (test code = See_Comment [ Automated message] The 6993727150) system which ge nerated this result transmit natasha reference range: 0.0 - 10 .0 /100 WBCs. The reference r sera was not used to interpr et this result as normal/abnor mal. NRBC x10^3 (test code = <0.01 See_Comment [Au tomated message] The 1276135379) system which ge nerated this result transmit natasha reference range: 10*3/?L. The reference range was not u sed to interpret this result as normal/abnormal . GRAN MAT (NEUT) % (test code 61.4 % = 770-8) IMM GRAN % (test code = 0.30 % 6050988030) LYMPH % (test code = 736-9) 24.0 % MONO % (test code = 5905-5) 12.8 % EOS % (test code = 713-8) 0.9 % BASO % (test code = 706-2) 0.6 % GRAN MAT x10^3(ANC) (test 1.97 10*3/uL 1.88-7.09 code = 1435223746) IMM GRAN x10^3 (test code = <0.03 0.00-0.06 5218553815) LYMPH x10^3 (test code = 0.77 10*3/uL 1.32-3.29 L 731-0) MONO x10^3 (test code = 0.41 10*3/uL 0.33-0.92 742-7) EOS x10^3 (test code = 0.03 10*3/uL 0.03-0.39 711-2) BASO x10^3 (test code = <0.03 0.01-0.07 704-7) LG GRAN LYMPHS (test code = Rare Rare 4611817574) REACT LYMPHS (test code = Rare 0384005428) Lab Interpretation (test Abnormal code = 93098-7) [facility] [id number] 01:55:23 Test Item Value Reference Range Interpretation Comments EBV Mononucleosis Screen (test code Negative Negative = 8163221816) Lab Interpretation (test code = Normal 88388-4) [facility]2021-[facility]-02 01:45:45 Test Item Value Reference Range Interpretation Comments APPEARANCE (test code = Cloudy Clear A 7372767530) COLOR (test code = Yellow Yellow 9821720422) PH (test code = 4.8-8.0 3175395714) SP GRAVITY (test code = 1.003-1.030 9313112323) GLU U QUAL (test code = Normal Normal 5680863418) BLOOD (test code = Negative Negative Interfere nce from 6358998241) ascorbic acid m ay cause false neg ative results. KETONES (test code = Negative Negative 7128332993) PROTEIN (test code = Negative Negative 2887-8) UROBILIN (test code = Normal Normal 8379632715) BILIRUBIN (test code = Negative Negative 7785770383) NITRITE (test code = Negative Negative 6638524057) LEUK JULIEN (test code = Negative Negative 9246421023) RBC/HPF (test code = See_Comment [Autom ated message] 3162852705) The system [employer] generated this result transmitted ref erence range: 0 - 3 HP F. The reference range was not used to int erpret this result as normal/abnormal . WBC/HPF (test code = <1 See_Comment [Autom ated message] 8182788656) The system [employer] generated this result transmitted ref erence range: 0 - 5 HP F. The reference range was not used to int erpret this result as normal/abnormal . BACTERIA (test code = Few Negative A 4079555247) MUCOUS (test code = Slight Negative LPF A 4400316278) AMORPHOUS (test code = Moderate Rare HPF A 5826058004) SQ EPITH (test code = HPF 1296314426) Lab Interpretation (test Abnormal code = 45614-9) [facility] FOR GROUP [id number] 01:37:45 Test Item Value Reference Range Interpretation Comments Streptococcus pyogenes (group A) Negative Negative antigen (test code = 82760-4) Lab Interpretation (test code = Normal 07303-9) [facility] (ID NOW RAPID TESTING)2020-12-08 01:31:50 Test Item Value Reference Range Interpretation Comments SARS-CoV-2 Rapid ID NOW Not Detected Not Detected (test code = 36763-0) STEFFANIE (test code = STEFFANIE) ID NOW COVID-19 Assay is an isothermal nucleic acid amplification test intended for the qualitative detection of nucleic acid from SARS-CoV-2 viral RNA in nasopharyngeal (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 It is used under Emergency Use Authorization (EUA) by FDA. The limit of detection (LOD) of the assay is 125 Genome Equivalents/mL. A positive result is indicative of the presence of SARS-CoV-2 RNA. ?Clinical correlation with patient history and other diagnostic information is necessary to determine patient infection status. A negative (Not Detected) result does not preclude SARS-CoV-2 infection. In patients with clinical symptoms and other tests that are consistent with SARS-CoV-2 infection, negative results should be treated as presumptive negative and a new specimen should be tested with alternative PCR molecular test. Invalid: Please collect a new specimen for repeat patient testing if clinically indicated. Lab Interpretation Normal (test code = 33527-5) [facility]. METABOLIC PANEL (35546)2020-12-08 01:30:28 Test Item Value Reference Range Interpretation Comments NA (test code = 139 mmol/L 135-145 1212087674) K (test code = 3.8 mmol/L 3.5-5.0 1491074107) CL (test code = 100 mmol/L 98-108 9462724422) CO2 TOTAL (test code = 29 mmol/L 23-31 3506829405) AGAP (test code = 2-16 7935472060) BUN (test code = 9 mg/dL 7-23 6535849249) GLUCOSE (test code = 92 mg/dL 70-110 1949238590) CREATININE (test code = 0.70 mg/dL 0.50-1.04 2099429300) TOTAL BILI (test code = 0.2 mg/dL 0.1-1.1 9312973063) CALCIUM (test code = 9.5 mg/dL 8.6-10.6 9512223296) T PROTEIN (test code = 8.1 g/dL 6.3-8.2 0450320669) ALBUMIN (test code = 4.6 g/dL 3.5-5.0 1158375319) ALK PHOS (test code = 66 U/L 34-122 4619365720) ALTv (test code = 46 U/L 5-35 H 1741-6) AST(SGOT) (test code = 45 U/L 13-40 H 9653441936) eGFR (test code = mL/min/1.73m2 0116763796) STEFFANIE (test code = STEFFANIE) Association of Glomerular Filtration Rate (GFR) and Staging of Kidney Disease* + --+ --+ ------+| GFR (mL/min/1.73 m2) ?| With Kidney Damage ?| ?Without Kidney Damage+ --------+ --------+ +| ?>90 ?| ?Stage one ?| ? Normal ?+ ---+ ---+ -------+| ?60-89 ?| ?Stage two ?| ? Decreased GFR ? + --+ --+ ------+| ?30-59 ?| ?Stage three ?| ? Stage three ? + --+ --+ ------+| ?15-29 ?| ?Stage four ? | ? Stage four ?+ ---+ ---+ -------+| ?<15 (or dialysis) ? ?| ?Stage five ? | ? Stage five ?+ ---+ ---+ -------+ *Each stage assumes the associated GFR level has been in effect for at least three months. ?Stages 1 to 5, with or without kidney disease, indicate chronic kidney disease. Notes: Determination of stages one and two (with eGFR >59mL/min/1.73 m2) requires estimation of kidney damage for at least three months as defined by structural or functional abnormalities of the kidney, manifested by either:Pathological abnormalities or Markers of kidney damage (including abnormalities in the composition of the blood or urine or abnormalities in imaging tests). Lab Interpretation Abnormal (test code = 51888-5) [facility] [id number] 01:05:00 Test Item Value Reference Range Interpretation Comments POCT PREG (test code = 1605) neg On board controls acceptable with yes C Line (test code = 3574) POCT PREG LOT # (test code = 3575) [id number] POCT PREG TEST DATE (test 04/07/2022 code = 3576) Lab Interpretation (test code = Normal 63830-5) [facility]"
[2021-04-26] MEDS ORDERED: ONDANSETRON 4 MG (ODT) TAB ONE (12:06)
[2021-04-26] MEDS ORDERED: ACETAMINOPHEN 500 MG TAB ONE (12:12)
[2021-04-26 14:23] LABS: SARS-COV-2 RT PCR POSITIVE (NEGATIVE)
--- NOTE | 2021-04-26 14:38 | EDPHYS ---
Physician Documentation [facility] Name: Alanna Dumont Age: 31 yrs Sex: Female : 1990 Arrival Date: 04/26/2021 Time: 11:51 Bed 11 Private MD: ED Physician Miguel Jeffrey HPI: 04/26 17:01 This 31 yrs old Female presents to ER via Ambulatory with complaints of Flu Symptoms. kdr 17:01 Patient states that she was recently tested for COVID and flu. She indicated that she kdr had tested positive. She continues to feel ill despite being diagnosed for 5 days ago. She has had subjective fever but otherwise is nontoxic-appearing in the ED. She does appear generally ill. Onset: The symptoms/episode began/occurred gradually, 5 day(s) ago. Severity of symptoms: At their worst the symptoms were mild moderate just prior to arrival, in the emergency department the symptoms are unchanged. The patient has not experienced similar symptoms in the past. The patient has not recently seen a physician. 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 Flu vaccine is not up to date. - Social history:: Smoking status: Patient denies any tobacco usage or history of. ROS: 17:01 Constitutional: Negative for objective fever, chills, and weight loss, she has had kdr subjective fever and rigors Eyes: Negative for injury, pain, redness, and discharge, Neck: Negative for injury, pain, and swelling, Cardiovascular: Negative for chest pain, palpitations, and edema, Respiratory: Negative for shortness of breath, cough, wheezing, and pleuritic chest pain, Abdomen/GI: Negative for abdominal pain, nausea, vomiting, diarrhea, and constipation, Back: Negative for injury and pain, : Negative for injury, bleeding, discharge, and swelling, MS/Extremity: Negative for injury and deformity, Skin: Negative for injury, rash, and discoloration, Neuro: Negative for headache, weakness, numbness, tingling, and seizure activity. Psych: Negative for depression, anxiety, suicide ideation, homicidal ideation, and hallucinations, Allergy/Immunology: Negative for hives, rash, and allergies, Endocrine: Negative for neck swelling, polydipsia, polyuria, polyphagia, and marked weight changes, Hematologic/Lymphatic: Negative for swollen nodes, abnormal bleeding, and unusual bruising. Exam: 17:01 Constitutional: This is a well developed, well nourished patient who is awake, alert, kdr and in mild distress. She appears generally ill and under the weather but not toxic and severely ill Head/Face: Normocephalic, atraumatic. Eyes: Pupils equal round and reactive to light, extra-ocular motions intact. Lids and lashes normal. Conjunctiva and sclera are non-icteric and not injected. Cornea within normal limits. Periorbital areas with no swelling, redness, or edema. ENT: Nares patent. No nasal discharge, no septal abnormalities noted. Tympanic membranes are normal and external auditory canals are clear. Oropharynx with no redness, swelling, or masses, exudates, or evidence of obstruction, uvula midline. Mucous membranes moist. Neck: Trachea midline, no thyromegaly or masses palpated, and no cervical lymphadenopathy. Supple, full range of motion without nuchal rigidity, or vertebral point tenderness. No Meningismus. Chest/axilla: Normal chest wall appearance and motion. Nontender with no deformity. No lesions are appreciated. Cardiovascular: Regular rate and rhythm with a normal S1 and S2. No gallops, murmurs, or rubs. Normal PMI, no JVD. No pulse deficits. Respiratory: Lungs have equal breath sounds bilaterally, clear to auscultation and percussion. No rales, rhonchi or wheezes noted. No increased work of breathing, no retractions or nasal flaring. Abdomen/GI: Soft, non-tender, with normal bowel sounds. No distension or tympany. No guarding or rebound. No evidence of tenderness throughout. Back: No spinal tenderness. No costovertebral tenderness. Full range of motion. Skin: Warm, dry with normal turgor. Normal color with no rashes, no lesions, and no evidence of cellulitis. MS/ Extremity: Pulses equal, no cyanosis. Neurovascular intact. Full, normal range of motion. Neuro: Awake and alert, GCS 15, oriented to person, place, time, and situation. Cranial nerves II-XII grossly intact. Motor strength 5/5 in all extremities. Sensory grossly intact. Cerebellar exam normal. Normal gait. Psych: Awake, alert, with orientation to person, place and time. Behavior, mood, and affect are within normal limits. Vital Signs: 12:00 BP 98 / 75; Pulse 105; Resp 17 S; Temp 97.6(TE); Pulse Ox 98% on R/A; Weight 54.43 kg jd3 (R); Height 5 ft. 4 in. (162.56 cm) (R); Pain 9/10; 12:00 Body Mass Index 20.60 (54.43 kg, 162.56 cm) jd3 MDM: 14:37 Patient medically screened. kdr 17:03 Data reviewed: vital signs, nurses notes, lab test result(s), radiologic studies. kdr Counseling: I had a detailed discussion with the patient and/or guardian regarding: the historical points, exam findings, and any diagnostic results supporting the discharge/admit diagnosis, lab results, radiology results, the need for outpatient follow up. 04/26 12:02 Order name: COVID-19/FLU A+B (Document "Date of Onset" if Symptomatic); Complete Time: jd3 14:36 04/26 12:02 Order name: Strep; Complete Time: 14:36 jd3 04/26 13:41 Order name: Throat Culture EDMS Administered Medications: 12:13 Drug: Ondansetron 4 mg Route: PO; jd3 12:13 Drug: Tylenol 1000 mg Route: PO; jd3 Disposition Summary: 04/26/21 14:37 Discharge Ordered Location: Home kdr Problem: an ongoing problem kdr Symptoms: have improved kdr Condition: Stable kdr Diagnosis - SARS-associated coronavirus as the cause of diseases classified elsewhere kdr Followup: kdr - With: Private Physician - When: 2 - 3 days - Reason: If symptoms return, Further diagnostic work-up, Recheck today's complaints, Continuance of care, Re-evaluation by your physician Discharge Instructions: - Discharge Summary Sheet kdr - COVID-19 kdr - 10 Things You Can Do to Manage Your COVID-19 Symptoms at Home - [facility] kdr - Viral Illness, Adult kdr - COVID-19: Quarantine vs. Isolation - [facility] kdr - Prevent the Spread of COVID-19 if You Are Sick - [facility] kdr Forms: - Medication Reconciliation Form kdr - Thank You Letter kdr - Work release form iw Prescriptions: - Tessalon Perles 100 mg Oral Capsule - take 1 capsule by ORAL route every 8 hours As needed; 15 capsule; Refills: 0, kdr Product Selection Permitted Signatures: Dispatcher [employer] Miguel Flores MD MD kdr Brad Bolivar RN RN jd3
--- NOTE | 2021-04-26 14:38 | ER ---
Nurse's Notes [facility] Name: Alanna Dumont Age: 31 yrs Sex: Female : 1990 Arrival Date: 04/26/2021 Time: 11:51 Bed 11 Private MD: Diagnosis: SARS-associated coronavirus as the cause of diseases classified elsewhere Presentation: 04/26 11:58 Chief complaint: Patient states: "I just don't feel good. nausea, chills. I had family jd3 that recently tested positive for COVID and strep throat.". Coronavirus screen: fatigue, Client presents with at least one sign or symptom that may indicate coronavirus-19. Standard/surgical mask placed on the client. Provider contacted for isolation considerations. Ebola Screen: Patient negative for fever greater than or equal to 101.5 degrees Fahrenheit, and additional compatible Ebola Virus Disease symptoms. Initial Sepsis Screen: Does the patient meet any 2 criteria? No. Patient's initial sepsis screen is negative. Does the patient have a suspected source of infection? No. Patient's initial sepsis screen is negative. Risk Assessment: Do you want to hurt yourself or someone else? Patient reports no desire to harm self or others. Onset of symptoms was April 24, 2021. 11:58 Method Of Arrival: Ambulatory [facility] 11:58 Acuity: LUIS FELIPE 4 jd3 12:01 Note Ibuprofen taken 3 hours ago. 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 Flu vaccine is not up to date. - Social history:: Smoking status: Patient denies any tobacco usage or history of. Screenin:14 Abuse screen: Denies threats or abuse. Nutritional screening: No deficits noted. jd3 Tuberculosis screening: No symptoms or risk factors identified. Fall Risk Ambulatory Aid- None/Bed Rest/Nurse Assist (0 pts). Gait- Normal/Bed Rest/Wheelchair (0 pts) Mental Status- Oriented to own ability (0 pts). Total Lopez Fall Scale indicates No Risk (0-24 pts). Assessment: 12:13 General: Appears in no apparent distress. uncomfortable, Behavior is calm, cooperative, jd3 appropriate for age, tests completed and awaiting results. pt waiting in the lobby at this time.. Pain: Complains of pain in head and abdomen Quality of pain is described as aching. Neuro: Level of Consciousness is awake, alert, obeys commands, Oriented to person, place, time, situation. Cardiovascular: Denies chest pain, Capillary refill < 3 seconds Patient's skin is warm and dry. Respiratory: Reports cough that is persistent Airway is patent Respiratory effort is even, unlabored, Respiratory pattern is regular, symmetrical. GI: Abdomen is non-distended, Abd is soft and non tender X 4 quads. Reports lower abdominal pain, upper abdominal pain, nausea. : No signs and/or symptoms were reported regarding the genitourinary system. EENT: No signs and/or symptoms were reported regarding the EENT system. Derm: Skin is intact, Skin is dry, Skin is normal, Skin temperature is warm. Musculoskeletal: Circulation, motion, and sensation intact. Range of motion: intact in all extremities. 14:35 Reassessment: Patient appears in no apparent distress at this time. Patient and/or iw family updated on plan of care and expected duration. Pain level reassessed. Patient is alert, oriented x 3, equal unlabored respirations, skin warm/dry/pink. Patient states symptoms have improved. Vital Signs: 12:00 BP 98 / 75; Pulse 105; Resp 17 S; Temp 97.6(TE); Pulse Ox 98% on R/A; Weight 54.43 kg jd3 (R); Height 5 ft. 4 in. (162.56 cm) (R); Pain 9/10; 12:00 Body Mass Index 20.60 (54.43 kg, 162.56 cm) jd3 ED Course: 11:51 Patient arrived in ED. mr 11:59 Triage completed. jd3 12:01 Arm band placed on. jd3 12:11 Miguel Jeffrey MD is Attending Physician. kdr 12:14 Patient has correct armband on for positive identification. Bed in low position. Call jd3 light in reach. Side rails up X 1. Adult w/ patient. Pulse ox on. NIBP on. 12:16 Bolivar, Brad, RN is Primary Nurse. jd3 12:16 COVID swab sent to lab. Flu and/or RSV swab sent to lab. Strep swab sent to lab. jd3 Administered Medications: 12:13 Drug: Ondansetron 4 mg Route: PO; jd3 12:13 Drug: Tylenol 1000 mg Route: PO; jd3 Outcome: 14:37 Discharge ordered by . chad 15:05 Patient left the ED. iw Signatures: Miguel Jeffrey MD MD kdr Rivera, Mary mr Williams, Irene, RN RN iw Brad Bolivar, ADAM RN jd3 Corrections: (The following items were deleted from the chart) 12:15 11:58 Chief complaint: Patient states: "I just don't feel good. nausea, chills." jd3 jd3 12:16 12:13 General: Appears in no apparent distress. uncomfortable, Behavior is calm, jd3 cooperative, appropriate for age, jd3
[2021-04-26 15:11] VITALS: BP 98/75; TEMP 97.6; O2SAT 98
== END 2021-04-26 15:05 | disposition home or self-care (01) ==
LOC: ER 11:47
DX: U07.1 COVID-19 (principal)
CPT/HCPCS: 0240U; 87070; 87081; 99283

== ENCOUNTER 2021-08-25 13:05 | Emergency (ER) | payer OTHER ==
--- OUTSIDE RECORDS SUMMARY | 2021-08-25 13:09 | XMS REPORT | Continuity of Care Document ---
:1990 Author Organization [facility] t Address [address] [place] [place] [address] Care Team Providers Name Role Phone PCP, DOES NOT HAVE A Primary Care Physician Unavailable New RUIZ Attending Clinician Unavailable Fili PAC, S Attending Clinician Doctor Unassigned, Name Attending Clinician Unavailable Romario DAVIS S Attending Clinician Vic CHOWDARY Attending Clinician New RUIZ Admitting Clinician Unavailable Payers Payer Name Policy Type Policy Number Effective Date Expiration Date [place] agu[place]ICAID OF [place] [id number] 2020 00:00:00 [facility] [id number] 2020 [facility] MEDICAID 00:00:00 Problems Condition Condition Condition Status Onset Resolution Last Treating Co mments Source Name Details Category Date Date Treatment Clinician Date Vaginal Vaginal Disease Active Univers odor odor 4-24 ity of 00:00: [address] Vaginal Vaginal Disease Active Univers discharge discharge 4-24 ity of 00:00: [address] Screening Screening Disease Active Uni vers [...] jessica management management Seasonal Seasonal Problem Active Commo n allergies allergies Spir it - [facility] Gastroesop Gastroesop Diagnosis Active Common hageal hageal Spirit reflux reflux - [facility]I disease disease [facility] without without [facility] esophag[facility] esophagiti Me dical [facility] Oral Oral Diagnosis Active Common aphthous aphthous Spirit ulcer ulcer - [facility] Allergies, Adverse Reactions, Alerts Allergy Allergy Status Severity Reaction(s) Onset Inactive Treating Comm ents Source Name Type Date Date Clinician NO KNOWN Drug Active Univers ALLERGIE Class ity of S [facility] Social History Social Habit Start Date Stop Date Quantity Comments Source History SDOH University o f Alcohol Frequency [place] [facility] History SDOH University o f Alcohol Std [place] [facility] Dr[facility] History SDMA University o f Alcohol Binge [place] [facility] Exposure to Unable to assess Univers ity of SARS-CoV-2 [facility] (event) [place] Alcohol intake 2021-07-06 2021-07-06 0 /d University of 00:00:00 00:00:00 [facility] Tobacco use and 2014-02-10 2014-02-10 Never used Universit y of exposure 00:00:00 00:00:00 [facility] History of 2013-09-10 Cigarette Smoker Universi ty of tobacco use 00:00:00 [facility] Alcohol Comment 2012-10-15 2012-10-15 Occasional ETOH Univ ersity of 00:00:00 00:00:00 [facility] Sex [birth year] Universit y of 00:00:00 00:00:00 [facility] Smoking Status Start Date Stop Date Source Former smoker 2014-02-10 00:00:00 2014-02-10 00:00:00 Universi ty of [facility] Medications Ordered Filled Start Stop Current Ordering Indication Dosage Frequency Signature Comments Components Source Medication Medication Date Date Medication? Clinician (SIG) Name Name iopamidol 2021- No [id number] 100mL 100 mL, Univers (ISOVUE 07-06 Intravenou ity o f 370-500 mL) 22:15: 21:01 s, ONCE, 1 [place] injection 00 :00 dose, On Medica l 100 mL [facility] Branch 07/06/21 at 1715, Routine HYDROcodone 2021- No 1{tbl} 1 tablet, Univers -acetaminop 07-06 Oral, ity of hen (NORCO 21:45: 20:50 ONCE, 1 Jan as 5) 5-325 mg 00 :00 dose, On Medi elvis tablet 1 Yvonne Branch tablet 07/06/21 at 1645, JAMES ketorolac No 30mg 30 mg, Unive rs (TORADOL) 12-08 Slow IV ity of injection 02:11: 02:16 Push, [place] 30 mg 00 :00 ONCE, 1 Medical dose, Wed Branch 12/07/20 at 2115, JAMES
Fa culty member approving Restricted medication : ROMARIO DREA Wolff benzonatate Yes [id number] 200mg Take 1 Univers 200 mg 9-01 capsule by ity of capsule 00:00: mouth 3 [place] 00 (three) Medical times Branch daily as needed for Cough. ondansetron Yes [id number] 4mg Take 1 Univers (ZOFRAN) 4 9-01 tablet by ity of mg tablet 00:00: mouth [place] 00 every 8 Medical (eight) Branch hours as needed for Nausea and Vomiting (N/V). traMADoL Yes [id number] 50mg Take 1 Univers (ULTRAM) 50 9-01 tablet by ity of mg tablet 00:00: mouth [place] 00 every 6 Medical (six) Branch hours as needed for Pain (scale 7-10). Indication s: acute pain benzonatate Yes [id number] 200mg Take 1 Univers 200 mg 9-01 capsule by ity of capsule 00:00: mouth 3 [place] 00 (three) Medical times Branch daily as needed for Cough. ondansetron Yes [id number] 4mg Take 1 Univers (ZOFRAN) 4 9-01 tablet by ity of mg tablet 00:00: mouth [place] 00 every 8 Medical (eight) Branch hours as needed for Nausea and Vomiting (N/V). traMADoL Yes [id number] 50mg Take 1 Univers (ULTRAM) 50 9-01 tablet by ity of mg tablet 00:00: mouth [place] 00 every 6 Medical (six) Branch hours as needed for Pain (scale 7-10). Indication s: acute pain benzonatate Yes [id number] 200mg Take 1 Univers 200 mg 9-01 capsule by ity of capsule 00:00: mouth 3 [place] 00 (three) Medical times Branch daily as needed for Cough. ondansetron 0 Yes [id number] 4mg Take 1 Univers (ZOFRAN) 4 - tablet by ity of mg tablet 00:00: mouth [place] 00 every 8 Medical (eight) Branch hours as needed for Nausea and Vomiting (N/V). traMADoL 0 Yes [id number] 50mg Take 1 Univers (ULTRAM) 50 12-07 tablet by ity of mg tablet 00:00: mouth [place] 00 every 6 Medical (six) Branch hours as needed for Pain (scale 7-10). Indication s: acute pain acetaminoph 0 Yes [id number] 1{tbl} Take 1 Un viktoriya en-codeine 4-22 tablet by ity of 300-30 mg 00:00: mouth [place] tablet 00 every 4 Medical (four) Branch hours as needed for Pain (scale 4-6). Indication s: acute pain naproxen 0 Yes [id number] 500mg Take 1 U nivers (NAPROSYN) 4-22 tablet by ity of 500 mg 00:00: mouth 2 [place] tablet 00 (two) Medical times Branch daily with meals. acetaminoph 2020-0 Yes [id number] 1{tbl} Take 1 Un viktoriya en-codeine 4-22 tablet by ity of 300-30 mg 00:00: mouth [place] tablet 00 every 4 Medical (four) Branch hours as needed for Pain (scale 4-6). Indication s: acute pain naproxen 2020-0 Yes [id number] 500mg Take 1 U nivers (NAPROSYN) 4-22 tablet by ity of 500 mg 00:00: mouth 2 [place] tablet 00 (two) Medical times Branch daily with meals. acetaminoph 2020-0 Yes [id number] 1{tbl} Take 1 Un viktoriya en-codeine 4-22 tablet by ity of 300-30 mg 00:00: mouth [place] tablet 00 every 4 Medical (four) Branch hours as needed for Pain (scale 4-6). Indication s: acute pain naproxen 2020-0 Yes [id number] 500mg Take 1 U nivers (NAPROSYN) 4-22 tablet by ity of 500 mg 00:00: mouth 2 [place] tablet 00 (two) Medical times Branch daily with meals. famotidine 2018-0 Yes 20mg Take 1 Unive rs (PEPCID) 20 9-08 tablet by ity of mg tablet 00:00: mouth 2 [place] 00 (two) Medical times Branch daily. famotidine 2018-0 Yes 20mg Take 1 Unive rs (PEPCID) 20 9-08 tablet by ity of mg tablet 00:00: mouth 2 [place] 00 (two) Medical times Branch daily. famotidine 2018-0 Yes 20mg Take 1 Unive rs (PEPCID) 20 9-08 tablet by ity of mg tablet 00:00: mouth 2 [place] 00 (two) Medical times Branch daily. GNP GNP 2017-0 Yes Doyle 1 tablet Common Omeprazole Omeprazole 7-16 Alex Sp sheeba 00:00: - [facility]I 00 [facility] Benzocaine Benzocaine 2017-0 2018- No Doyle 1 lozenge Common 716 09-14 Alex as needed Spirit 00:00: 00:00 - [facility]I 00 :00 [facility] CVS CVS 2017-0 Yes Doyle 1 spray in Commo n Fluticasone Fluticasone 6-05 Alex each Spirit Propionate Propionate 00:00: nostril - [facility]I 00 [facility] ProAir HFA ProAir HFA 2017-0 Yes Doyle 2 puffs as Common 6-05 Alex needed Spirit 00:00: - [facility]I 00 [facility] benzonatate 2018-0 Yes 100mg Take 1 Uni vers 100 mg 4-17 capsule by ity of capsule 00:00: mouth 3 (three) Medical times Branch daily as needed for Cough. benzonatate 2017-0 Yes 100mg Take 1 Uni vers 100 mg 4-17 capsule by ity of capsule 00:00: mouth 3 (three) Medical times Branch daily as needed for Cough. benzonatate 2018-0 Yes 100mg Take 1 Uni vers 100 mg 4-17 capsule by ity of capsule 00:00: mouth 3 [place] (three) Medical times Branch daily as needed for Cough. metroNIDAZO 2016- Yes [id number] 500mg Take 1 Univers LE (FLAGYL) 1-09 tablet by ity of 500 mg 00:00: mouth 2 [place] tablet 00 (two) Medical times Branch daily. metroNIDAZO 2016- Yes [id number] 500mg Take 1 Univers LE (FLAGYL) 1-09 tablet by ity of 500 mg 00:00: mouth 2 [place] tablet 00 (two) Medical times Branch daily. metroNIDAZO 2016-04 Yes [id number] 500mg Take 1 Univers LE (FLAGYL) 1-09 tablet by ity of 500 mg 00:00: mouth 2 [place] tablet 00 (two) Medical times Branch daily. medroxyPROG 2016- Yes [id number] 150mg Univers ESTERone 1-24 ity of (DEPO-PROVE 20:15: [place] RA) 00 Medical injection Branch 150 mg medroxyPROG 2016- Yes [id number] 150mg Univers ESTERone 1-24 ity of (DEPO-PROVE 20:15: [place] RA) 00 Medical injection Branch 150 mg medroxyPROG 2016- Yes [id number] 150mg Univers ESTERone 1-24 ity of (DEPO-PROVE 20:15: [place] RA) 00 Medical injection Branch 150 mg Cetirizine Cetirizine Yes Doyle 1 tablet Common HCl HCl Alex [facility] Immunizations Ordered Filled Immunization Date Status Comments Sour e Immunization Name Name HPV9 2017-08-14 Completed University of 00:00:00 [facility] HPV9 2017-08-14 Completed University of 00:00:00 [facility] HPV9 2017-08-14 Completed University of 00:00:00 [facility] HPV9 2017-04-16 Completed University of 00:00:00 [facility] HPV9 2017-04-16 Completed University of 00:00:00 [facility] HPV9 2017-04-16 Completed University of 00:00:00 [facility] HPV9 2017-02-14 Completed University of 00:00:00 [facility] HPV9 2017-02-14 Completed University of 00:00:00 [facility] HPV9 2017-02-14 Completed University of 00:00:00 [facility] PPD (TB) 2008-06-01 Completed University of 00:00:00 [facility] PPD (TB) 2008-06-01 Completed University of 00:00:00 [facility] PPD (TB) 2008-06-01 Completed University of 00:00:00 [facility] Td 2007-04-08 Completed University of 00:00:00 [facility] Td 2007-04-08 Completed University of 00:00:00 [facility] Branch Td 2007-04-08 Completed University of 00:00:00 [facility] Vital Signs Vital Name Observation Time Observation Value Comments Source Systolic blood 2021-07-06 18:31:00 104 mm[Hg] Univer sity of pressure [facility] Diastolic blood 2021-07-06 18:31:00 70 mm[Hg] Unive rsity of pressure [facility] Heart rate 2021-07-06 18:31:00 94 /min Universi ty [facility] [place] [facility] [place] Body temperature 2021-07-06 18:31:00 36.61 Mitra Univ ersity of [facility] Respiratory rate 2021-07-06 18:31:00 18 /min Univ ersity of [facility] Body weight 2021-07-06 18:31:00 52.164 kg Universi ty of [facility] BMI 2021-07-06 18:31:00 20.37 kg/m2 Universi ty [facility] [place] Oxygen saturation in 2021-07-06 18:31:00 100 /min University of Arterial blood by [facility] Pulse oximetry Branch Systolic blood 2020-12-08 02:00:00 104 mm[Hg] Univer sity of pressure [facility] Diastolic blood 2020-12-08 02:00:00 70 mm[Hg] Unive rsity of [facility] Heart rate 2020-12-08 02:00:00 68 /min Universi ty [facility] Respiratory rate 2020-12-08 02:00:00 18 /min Univ ersity [facility] Oxygen saturation in 2020-12-08 02:00:00 99 /min University of Arterial blood by [facility] Pulse oximetry Branch Body temperature 2020-12-08 01:00:00 37.28 Mitra Univ ersity of [facility] Body height 2020-12-07 23:28:00 160 cm [facility]i ty [facility] [place] [facility] Body weight 2020-12-07 23:28:00 52.164 kg [facility] [place] [facility] BMI 2020-12-07 23:28:00 20.37 kg/m2 [facility] [place] [facility] [place] Procedures Procedure Date / Time Performed Performing Clinician Sour e CT THORAX W CONTRAST 2021-07-06 21:11:[address] [facility] POCT TEST 2021-07-06 19:00:00 Tre Ruiz [facility] CONSENT/REFUSAL FOR 2021-07-06 17:48:23 [facility], [facility] AND Name Medical Branch TREATMENT XR CHEST 1 VW 2020-12-08 02:24:09 Drea Doss [facility] COMP. METABOLIC PANEL 2020-12-08 01:08:00 Drea Doss [facility] ([id number]) Medical [place] CBC WITH DIFF 2020-12-08 01:08:00 Drea Doss [facility] URINALYSIS 2020-12-08 01:08:00 Drea Doss [facility] EBV-MONONUCLEOSIS 2020-12-08 01:08:00 Drea Doss [facility] SCREEN [facility] Branch RAPID STREP SCREEN FOR 2020-12-08 01:08:00 Drea Doss [facility] GROUP A Medical Branch COVID-19 (ID NOW RAPID 2020-12-08 01:08:00 Drea Doss [facility] TESTING) Medical Branch POCT TEST 2020-12-08 01:05:[address] [facility] NOTICE OF PRIVACY 2020-12-07 23:19:59 Doctor Unassigned, No [facility] PRACTICES Name Medical Branch CONSENT/REFUSAL FOR 2020-12-07 23:18:56 Doctor Unassigned, [facility] AND Name Medical [place] TREATMENT Encounters Start End Encounter Admission Attending Care Care Encounter Source Date/Time Date/Time Type Type Clinicians Facility Department ID 2021-02-06 Emergency [facility] [id number] [facility] 2021-02-05 Emergency [facility] [id number] [facility] 14:44:43 [facility] 2021-02-04 Emergency [facility] [id number] Univers 07:[facility] 2021-07-06 2021-07-06 Emergency X LALO RUIZMB ERT [id number] Univers 13:34:00 18:25:00 TRE ity of [facility] 2021-07-06 2021-07-06 Emergency Fili [facility] [id number] Univers 13:34:00 18:25:00 Tre [place] [id number] i ty of [place] 4.2.7.2.686 [facility] [id number] [address] 2021-07-06 2021-07-06 Orders Doctor BETTE [id number] Univers 00:00:00 00:00:00 Only Unassigned, VENTURA 350.1.13.10 ity of [place] [facility] 4.2.7.2.686 Jan [id number] [place] [address] Branch 2020-12-07 2020-12-07 Emergency Tre Ruiz [facility] [id number] Univers 18:30:00 22:51:00 Drea Doss Javed [id number] ity of [place] 4.2.7.2.686 [facility] [id number] [address] 2020-02-26 2020-02-26 Emergency Vic [facility] [id number] 16:35:00 16:59:00 Raquel Burt 350.1.13.10 [place] 4.2.7.2.686 [place] [id number] [facility] 2020-02-26 2020-02-26 Orders Doctor BETTE [id number] 00:00:00 00:00:00 Only Unassigned, [place] 350.1.13.10 [place] [facility] 4.2.7.2.686 [id number] 2017-11-11 2017-11-11 Outpatient Nestor Baezt [id number] Common 15:45:00 15:45:00 Theodore [facility] [address] [facility] 2017-10-21 2017-10-21 Outpatient Nestor Baezt [id number] Common 13:15:00 13:15:00 [facility] it [facility] 2017-09-10 2017-09-10 Out[facility] [id number] Common 15:00:00 15:00:00 [facility] it [facility] Results Test Description Test Time Test Comments Results Result Comments Source POCT TEST 2021-07-06 19:00:00 Test Item Value Reference Range Interpretation Comme nts POCT PREG (test code = 1605) negative On board controls acceptable with C Line (test code = 3574) present POCT PREG LOT # (test code = 3575) [id number] POCT PREG TEST DATE (test code = 3576) 2022-06-05 Lab Interpretation (test code = 29477-6) Normal [facility] WITH [id number] 02:41:11 Test Item Value Reference Range Interpretation Comments WBC (test code = See_Comment L [Automated 3154-2) message] The sy stem which generated this result transmitted reference range : 4.30 - 11.10 10*3/?L. The reference range was not used to interpret this result as normal/abnormal . RBC (test code = See_Comment [Automated 819-8) message] The sy stem which generated this result transmitted reference range : 3.93 - 5.25 10*6/?L. The reference range was not used to interpret this result as normal/abnormal . HGB (test code = 12.8 g/dL 11.6-15.0 718-7) HCT (test code = 38.6 % 35.7-45.2 4544-3) MCV (test code = 84.3 fL 80.6-95.5 787-2) MCH (test code = 27.9 pg 25.9-32.8 785-6) MCHC (test code = 33.2 g/dL 31.6-35.1 786-4) RDW-SD (test code = 36.7 fL 39.0-49.9 L 60148-7) RDW-CV (test code = 12.1 % 12.0-15.5 788-0) PLT (test code = See_Comment [Automated 687-3) message] The sy stem which generated this result transmitted reference range : 166 - 358 10*3/ ?L. The reference r sera was not used to interpret this result as normal/abnormal . MPV (test code = 9.9 fL 9.5-12.9 92803-2) NRBC/100 WBC (test See_Comment [Automat ed code = 6971808523) message] The system which generated this result transmitted reference range : 0.0 - 10.0 /100 WBCs. The refer ence range was not u sed to interpret th is result as normal/abnormal . NRBC x10^3 (test code <0.01 See_Comment [Auto mated = 8607036913) message] The s ystem which generated this result transmitted reference range : 10*3/?L. The reference range was not used to interpret this result as normal/abnormal . GRAN MAT (NEUT) % 61.4 % (test code = 770-8) IMM GRAN % (test code 0.30 % = 8630025482) LYMPH % (test code = 24.0 % 736-9) MONO % (test code = 12.8 % 5905-5) EOS % (test code = 0.9 % 713-8) BASO % (test code = 0.6 % 706-2) GRAN MAT x10^3(ANC) 1.97 10*3/uL 1.88-7.09 (test code = 6510706814) IMM GRAN x10^3 (test <0.03 0.00-0.06 code = 3231307325) LYMPH x10^3 (test code 0.77 10*3/uL 1.32-3.29 L = 731-0) MONO x10^3 (test code 0.41 10*3/uL 0.33-0.92 = 742-7) EOS x10^3 (test code = 0.03 10*3/uL 0.03-0.39 711-2) BASO x10^3 (test code <0.03 0.01-0.07 = 704-7) LG GRAN LYMPHS (test Rare Rare code = 3029126692) REACT LYMPHS (test Rare code = 4408901066) Lab Interpretation Abnormal (test code = 55764-1) [facility] [id number] 01:55:23 Test Item Value Reference Range Interpretation Comments EBV Mononucleosis Screen (test code Negative Negative = 8253218651) Lab Interpretation (test code = Normal 53482-1) [facility] 01:45:45 Test Item Value Reference Range Interpretation Comments APPEARANCE (test code = Cloudy Clear A 4625974965) COLOR (test code = Yellow Yellow 8117840491) PH (test code = 4.8-8.0 9353413242) SP GRAVITY (test code = 1.003-1.030 1673814138) GLU U QUAL (test code = Normal Normal 4440074345) BLOOD (test code = Negative Negative Interfere nce from 4601237919) ascorbic acid m ay cause false neg ative results. KETONES (test code = Negative Negative 4799197539) PROTEIN (test code = Negative Negative 2887-8) UROBILIN (test code = Normal Normal 0512736187) BILIRUBIN (test code = Negative Negative 2781333968) NITRITE (test code = Negative Negative 6406337686) LEUK JULIEN (test code = Negative Negative 8748555324) RBC/HPF (test code = See_Comment [Autom ated message] 3255523244) The system HYGIEIA generated this result transmitted ref erence range: 0 - 3 HP F. The reference range was not used to int erpret this result as normal/abnormal . WBC/HPF (test code = <1 See_Comment [Autom ated message] 6990524198) The system HYGIEIA generated this result transmitted ref erence range: 0 - 5 HP F. The reference range was not used to int erpret this result as normal/abnormal . BACTERIA (test code = Few Negative A 6508422366) MUCOUS (test code = Slight Negative LPF A 9210109379) AMORPHOUS (test code = Moderate Rare HPF A 1766256144) SQ EPITH (test code = HPF 5444293720) Lab Interpretation (test Abnormal code = 53100-5) [facility] STREP SCREEN FOR GROUP [id number] 01:37:45 Test Item Value Reference Range Interpretation Comments Streptococcus pyogenes (group A) Negative Negative antigen (test code = 68237-3) Lab Interpretation (test code = Normal 75779-3) [facility]ID NOW RAPID TESTING)2020-12-08 01:31:50 Test Item Value Reference Range Interpretation Comments SARS-CoV-2 Rapid ID NOW Not Detected Not Detected (test code = 06488-0) STEFFANIE (test code = STEFFANIE) ID NOW COVID-19 Assay is an isothermal nucleic acid amplification test intended for the qualitative detection of nucleic acid from SARS-CoV-2 viral RNA in nasopharyngeal (HYDRAULIC BOOM OPERATOR) specimens. It is used under Emergency Use [...] indicated. Lab Interpretation Normal (test code = 19707-0) [facility] (27794)2020-12-08 01:30:28 Test Item Value Reference Range Interpretation Comments NA (test code = 139 mmol/L 135-145 1419062043) K (test code = 3.8 mmol/L 3.5-5.0 6043006430) CL (test code = 100 mmol/L 98-108 2679841915) CO2 TOTAL (test code = 29 mmol/L 23-31 0252452340) AGAP (test code = 2-16 0352482271) BUN (test code = 9 mg/dL 7-23 0500352291) GLUCOSE (test code = 92 mg/dL 70-110 7623820364) CREATININE (test code = 0.70 mg/dL 0.50-1.04 9439991239) TOTAL BILI (test code = 0.2 mg/dL 0.1-1.4 4400195851) CALCIUM (test code = 9.5 mg/dL 8.6-10.6 6789982783) T PROTEIN (test code = 8.1 g/dL 6.3-8.2 0304972531) ALBUMIN (test code = 4.6 g/dL 3.5-5.0 6082925896) ALK PHOS (test code = 66 U/L 34-122 2975634448) ALTv (test code = 46 U/L 5-35 H 1742-6) AST(SGOT) (test code = 45 U/L 13-40 H 5770892738) eGFR (test code = mL/min/1.73m2 0190936010) STEFFANIE (test code = STEFFANIE) Association of [...] tests). Lab Interpretation Abnormal (test code = 79799-1) [facility] [id number] 01:05:00 Test Item Value Reference Range Interpretation Comments POCT PREG (test code = 1605) neg On board controls acceptable with yes C Line (test code = 3574) POCT PREG LOT # (test code = 3575) [id number] POCT PREG TEST DATE (test 04/07/2022 code = 3576) Lab Interpretation (test code = Normal 37635-3) [facility]"
--- NOTE | 2021-08-25 15:08 | ER ---
Nurse's Notes [facility] Name: Alanna Dumont Age: 31 yrs Sex: Female : 1990 Arrival Date: 08/25/2021 Time: 13:08 Bed Waiting Private MD: Diagnosis: Presentation: 08/25 13:35 Chief complaint: Patient states: she has multiple ulcers in her mouth and reports that ap3 the pain "is unbearable". Patient reports that she has seen multiple providers over the years and no one has been able to tell her what they are and why she gets them. Patient states she is unable to get control of the pain. Coronavirus screen: At this time, the client does not indicate any symptoms associated with coronavirus-19. Ebola Screen: No symptoms or risks identified at this time. Initial Sepsis Screen: Does the patient meet any 2 criteria? No. Patient's initial sepsis screen is negative. Does the patient have a suspected source of infection? No. Patient's initial sepsis screen is negative. Risk Assessment: Do you want to hurt yourself or someone else? Patient reports no desire to harm self or others. Onset of symptoms was August 19, 2021. 13:35 Method Of Arrival: Ambulatory ap3 13:35 Acuity: LUIS FELIPE 4 ap3 Triage Assessment: 13:37 General: Appears in no apparent distress. Behavior is cooperative, anxious. Pain: ap3 Complains of pain in tongue and lower lip Pain began gradually, 6 days ago. EENT: Lesions noted. Neuro: Level of Consciousness is awake, alert, obeys commands, Oriented to person, place, time, situation, Appropriate for age. Cardiovascular: Patient's skin is warm and dry. Respiratory: Airway is patent Respiratory effort is even, unlabored. GI: Reports inability to eat due to the pain from the ulcers in her mouth. RADIATION THERAPIST: 13:39 LMP 08/18/2021 ap3 Historical: - Allergies: 13:37 No Known Allergies; ap3 - Home Meds: 13:37 Unable to obtain [Active]; ap3 - PMHx: 13:37 ulcers in the mouth; ap3 - Immunization history:: Client reports having NOT received the Covid vaccine. - Social history:: Smoking status: Patient denies any tobacco usage or history of. Patient uses alcohol, occasionally. Screenin:39 Abuse screen: Denies threats or abuse. Nutritional screening: No deficits noted. ap3 Tuberculosis screening: No symptoms or risk factors identified. 13:39 Fall Risk None identified. ap3 Vital Signs: 13:35 BP 112 / 86; Pulse 75; Temp 97.6; Pulse Ox 100% ; Weight 54.43 kg; Height 5 ft. 3 in. ap3 (160.02 cm); 13:35 Body Mass Index 21.26 (54.43 kg, 160.02 cm) ap3 ED Course: 13:08 Patient arrived in ED. mr 13:08 William Galindo PA is PHCP. cp 13:08 Luis Townsend MD is Attending Physician. cp 13:37 Triage completed. ap3 13:39 Arm band placed on right wrist. ap3 Administered Medications: No medications were administered Medication: 13:39 VIS not applicable for this client. ap3 Outcome: 15:07 Patient left the ED. ap3 Signatures: Alejandro Lor mr William Galindo PA PA Rebecca Braga RN RN ap3
[2021-08-25 15:16] VITALS: BP 112/86; TEMP 97.6; O2SAT 100
== END 2021-08-25 15:07 | disposition left against medical advice (07) ==
LOC: ER 13:05
DX: Z53.21 Procedure and treatment not carried out due to patient leaving prior to being seen by health care provider (principal)
CPT/HCPCS: 99281

== ENCOUNTER 2021-12-26 12:43 | Emergency (ER) | payer OTHER ==
--- OUTSIDE RECORDS SUMMARY | 2021-12-26 12:48 | XMS REPORT | Continuity of Care Document ---
:1990 Author Organization [facility] t Address [address] [place] [place] [address] Care Team Providers Name Role Phone PCP, PATIENT DOES NOT HAVE A Primary Care Physician Unavaila TRE Perkins Attending Clinician Unavailable Tre Jones Attending Clinician Doctor Unassigned, [facility] Attending Clinician Unavailable Drea aJmil MD Attending Clinician Raquel Tate Attending Clinician TRE RUIZ Admitting Clinician Unavailable Payers Payer Name Policy Type Policy Number Effective Date Expiration Date S laci MEDICAID OF [place] [id number] 2020 00:00:00 [facility] [id number] 2020 [facility] MEDICAID 00:00:00 Problems Condition Condition Condition Status Onset Resolution Last Treating Co mments Source Name Details Category Date Date Treatment Clinician Date Vaginal Vaginal Disease Active Univers odor odor 4-24 ity of 00:00: [place] [facility] Vaginal Vaginal Disease Active Univers discharge discharge 4-24 ity of 00:00: [place] [facility] Screening Screening Disease Active Uni vers for STD for STD 04-16 ity of ([place] transmit[place] transmit[place] 00 Me dical d disease) d disease) Br anch Other Other Disease Active 2015-04 Univers general general -03 it[place] of [place] and advice 00 Me dical for for Branch contracept contracept jessica jessica management management Gastroesop Gastroesop Diagnosis Active Common hageal hageal Spirit reflux reflux - [facility] disease disease [facility] without without [facility] esophagiti esophagiti Oh erika [facility] Oral Oral Diagnosis Active Common aphthous aphthous Spirit ulcer ulcer - [facility] Seasonal Seasonal Problem Active Commo n allergies allergies Spir it - [facility] Allergies, Adverse Reactions, Alerts Allergy Allergy Status Severity Reaction(s) Onset Inactive Treating Comm ents Source Name Type Date Date Clinician NO KNOWN Drug Active Univers ALLERGIE Class ity of S [facility] Social History Social Habit Start Date Stop Date Quantity Comments Source History SDOH University o f Alcohol Frequency [place] [facility] History SDOH University o f Alcohol Std [place] [facility] Drinks Branch History SDOH University o f Alcohol Binge [place] [facility] [place] Exposure to Unable to assess Univers ity of SARS-CoV-2 [facility] (event) [place] Alcohol intake 2021-07-06 2021-07-06 0 /d University of 00:00:00 00:00:00 [facility] Tobacco use and 2014-02-10 2014-02-10 Never used Universit y of exposure 00:00:00 00:00:00 [facility] History of 2013-09-10 Cigarette Smoker Universi ty of tobacco use 00:00:00 [facility] Alcohol Comment 2012-10-15 2012-10-15 Occasional ETOH Univ ersity of 00:00:00 00:00:00 [facility] Sex Ass[birth year] At [birth year] Universit y of 00:00:00 00:00:00 [facility] Smoking Status Start Date Stop Date Source Former smoker 2014-02-10 00:00:00 2014-02-10 00:00:00 Universi ty of [facility] Medications Ordered Filled Start Stop Current Ordering Indication Dosage Frequency Signature Comments Components Source Medication Medication Date Date Medication? Clinician (SIG) Name Name iopamidol 2021- No [id number] 100mL 100 mL, Univers (ISOVUE 07-06 Intravenou ity o f 370-500 mL) 22:15: 21:01 s, ONCE, 1 [place] injection 00 :00 dose, On Medica l 100 mL Yvonne Branch 07/06/21 at 1715, Routine HYDROcodone 2021- [...] Restricted medication : DREA JAMIL benzonatate Yes [id number] 200mg Take 1 Univers 200 mg 9-01 capsule by ity of capsule 00:00: mouth 3 [place] 00 (three) Medical times Branch daily as needed for Cough. ondansetron Yes [id number] 4mg Take 1 Univers (ZOFRAN) 4 9-01 [...] 7-10). Indication s: acute pain benzonatate Yes [id number] 200mg Take 1 Univers 200 mg 9-01 capsule by ity of capsule 00:00: mouth 3 [place] 00 (three) Medical times Branch daily as needed for Cough. ondansetron Yes [id number] 4mg Take 1 Univers (ZOFRAN) 4 9-01 [...] 7-10). Indication s: acute pain benzonatate Yes [id number] 200mg Take 1 Univers 200 mg 9- capsule by ity of capsule 00:00: mouth 3 [place] 00 (three) Medical times Branch daily as needed for Cough. ondansetron 0 Yes [id number] 4mg Take 1 Univers (ZOFRAN) 4 - [...] Indication s: acute pain naproxen 0 Yes [id number] 500mg Take 1 U nivers (NAPROSYN) 4-22 tablet by ity of 500 mg 00:00: mouth 2 [place] tablet 00 (two) Medical times Branch daily with meals. acetaminoph 0 Yes [id number] 1{tbl} Take 1 Un viktoriya en-codeine 4-22 tablet by ity of 300-30 mg 00:00: mouth [place] tablet 00 every 4 Medical (four) Branch hours as needed for Pain (scale 4-6). Indication s: acute pain naproxen 0 Yes [id number] 500mg Take 1 U nivers (NAPROSYN) 4-22 [...] Indication s: acute pain naproxen 2020-0 Yes [id number] 500mg Take 1 U nivers (NAPROSYN) 4-22 tablet by ity of 500 mg 00:00: mouth 2 [place] tablet 00 (two) Medical times Branch daily with meals. famotidine 2017-0 Yes 20mg Take 1 Unive rs (PEPCID) 20 9-08 tablet by ity of mg tablet 00:00: mouth 2 [place] 00 (two) Medical times Branch daily. famotidine 2017-0 Yes 20mg Take 1 Unive rs (PEPCID) 20 9-08 tablet by ity of mg tablet 00:00: mouth 2 00 (two) Medical times Branch daily. famotidine 0 Yes 20mg Take 1 Unive rs (PEPCID) 20 9-08 tablet by ity of mg tablet 00:00: mouth 2 (two) Medical times Branch daily. GNP GNP 0 Yes Doyle 1 tablet Common Omeprazole Omeprazole 16 Alex Sp sheeba 00:00: - [facility] 00 [facility] Benzocaine Benzocaine 2018- No Doyle 1 lozenge Common 10-21 09-14 Alex as needed Spirit 00:00: 00:00 - [facility] 00 :00 [facility] CVS CVS 0 Yes Doyle 1 spray in Commo n Fluticasone Fluticasone 6-05 Alex each Spirit Propionate Propionate 00:00: nostril - [facility] 00 [facility] ProAir HFA ProAir HFA 0 Yes Doyle 2 puffs as Common 6-05 Alex needed Spirit 00:00: - [facility] 00 [facility] benzonatate 2017-0 Yes 100mg Take 1 Uni vers 100 mg 4-17 capsule by ity of capsule 00:00: mouth 3 (three) Medical times Branch daily as needed for Cough. benzonatate 0 Yes 100mg Take 1 Uni vers 100 mg 4-17 capsule by ity of capsule 00:00: mouth 3 (three) Medical times Branch daily as needed for Cough. benzonatate 0 Yes 100mg Take 1 Uni vers 100 mg 4-17 capsule by ity of capsule 00:00: mouth 3 (three) Medical times Branch daily as needed for Cough. metroNIDAZO 2016- Yes [id number] 500mg Take 1 Univers LE (FLAGYL) 1-09 tablet by ity of 500 mg 00:00: mouth 2 [place] tablet 00 (two) Medical times Branch daily. metroNIDAZO 2016- Yes [id number] 500mg Take 1 Univers LE (FLAGYL) 1-09 tablet by ity of 500 mg 00:00: mouth 2 [place] tablet 00 (two) Medical times Branch daily. metroNIDAZO 2016- Yes [id number] 500mg Take 1 Univers LE (FLAGYL) 1-09 tablet by ity of 500 mg 00:00: mouth 2 [place] tablet 00 (two) Medical times Branch daily. medroxyPROG 2017- Yes [id number] 150mg Univers ESTERone 1-24 ity of (DEPO-PROVE 20:15: [place] RA) 00 Medical injection Branch 150 mg medroxyPROG 2017-0 Yes [id number] 150mg Univers ESTERone 1-24 ity of (DEPO-PROVE 20:15: [place] RA) 00 Medical injection Branch 150 mg medroxyPROG 2017- Yes [id number] 150mg Univers ESTERone 1-24 ity of (DEPO-PROVE 20:15: [place] RA) 00 Medical injection Branch 150 mg Cetirizine Cetirizine Yes Doyle 1 tablet Common HCl HCl Alex [facility] Immunizations Ordered Filled Immunization Date Status Comments [facility] e Immunization Name Name [facility] 2017-08-14 Completed University of 00:00:00 [facility]9 2017-08-14 Completed University of 00:00:00 [facility]9 2017-08-14 Completed University of 00:00:00 [facility] 2017-04-16 Completed University of 00:00:00 [facility] HPV9 2017-04-16 Completed University of 00:00:00 [facility] HPV9 2017-04-16 Completed University of 00:00:00 [facility] HPV9 2017-02-14 Completed University of 00:00:00 [facility]9 2017-02-14 Completed University of 00:00:00 [facility] HPV9 2017-02-14 Completed University of 00:00:00 [facility] PPD (TB) 2008-06-01 Completed University of 00:00:00 [facility] PPD (TB) 2008-06-01 Completed University of 00:00:00 [facility] PPD (TB) 2008-06-01 Completed University of 00:00:00 [place] [facility] Td 2007-04-08 Completed University of 00:00:00 [place] [facility] Td 2007-04-08 Completed University of 00:00:00 [place] [facility] Td 2007-04-08 Completed University of 00:00:00 [facility] Vital Signs Vital Name Observation Time Observation Value Comments Source Systolic blood 2021-07-06 18:31:00 104 mm[Hg] Univer sity of pressure [facility] Diastolic blood 2021-07-06 18:31:00 70 mm[Hg] Unive rsity of pressure [place] [facility] [place] Heart rate 2021-07-06 18:31:00 94 /min Universi ty of [place] [facility] [place] Body temperature 2021-07-06 18:31:00 36.61 Mitra Univ ersity of [facility] Branch Respiratory rate 2021-07-06 18:31:00 18 /min Univ ersity of [place] [facility] [place] Body weight 2021-07-06 18:31:00 52.164 kg Universi ty of [place] [facility] [place] BMI 2021-07-06 18:31:00 20.37 kg/m2 Universi ty of [place] [facility] Oxygen saturation in 2021-07-06 18:31:00 100 /min University of Arterial blood by [facility] Pulse oximetry Branch Systolic blood 2020-12-08 02:00:00 104 mm[Hg] Univer sity of pressure [facility] Diastolic blood 2020-12-08 02:00:00 70 mm[Hg] Unive rsity of pressure [place] [facility] [place] Heart rate 2020-12-08 02:00:00 68 /min Universi ty of [place] [facility] Respiratory rate 2020-12-08 02:00:00 18 /min Univ ersity [facility] [place] Oxygen saturation in 2020-12-08 02:00:00 99 /min University of Arterial blood by [facility] Pulse oximetry Branch Body temperature 2020-12-08 01:00:00 37.28 Mitra Univ ersity of [place] [facility] Body height 2020-12-07 23:28:00 160 cm Universi ty of [place] [facility] Body weight 2020-12-07 23:28:00 52.164 kg Universi ty of [place] [facility] BMI 2020-12-07 23:28:00 20.37 kg/m2 Universi ty of [place] [facility] Procedures Procedure Date / Time Performed Performing Clinician Maddie e CT THORAX W CONTRAST 2021-07-06 21:11:[address] [facility] POCT TEST 2021-07-06 19:00:00 Tre Ruiz [facility] CONSENT/REFUSAL FOR 2021-07-06 17:48:23 Doctor [facility]igned, [facility] AND Name Medical [place] TREATMENT XR CHEST 1 VW 2020-12-08 02:24:09 Drea Jamil [facility] COMP. METABOLIC PANEL 2020-12-08 01:08:00 Drea Jamil [facility] ([id number]) Medical Branch CBC WITH DIFF 2020-12-08 01:08:00 Drea Jamil [facility] URINALYSIS 2020-12-08 01:08:00 Drea Jamil [facility] EBV-MONONUCLEOSIS 2020-12-08 01:08:00 Drea Jamil [facility] SCREEN [facility] Branch RAPID STREP SCREEN FOR 2020-12-08 01:08:00 Drea Jamil [facility] Medical Branch COVID-19 (ID NOW RAPID 2020-12-08 01:08:00 Drea Jamil [facility] TESTING) Medical Branch POCT TEST 2020-12-08 01:05:[address] [facility] NOTICE OF PRIVACY 2020-12-07 23:19:59 Doctor Unassigned, No [facility] Name [facility] CONSENT/REFUSAL FOR 2020-12-07 23:18:56 Doctor Unassigned, No [facility] DIAGNOSIS AND Name Medical [place] TREATMENT Encounters Start End Encounter Admission Attending Care Care Encounter Source Date/Time Date/Time Type Type Clinicians Facility Department ID 2021-02-06 Emergency [facility] [id number] Univers 19:48:10 [facility] 2021-02-05 Emergency [facility] [id number] Univers [facility] [id number] Univers 07:00:35 ity [facility] 2021-07-06 2021-07-06 Emergency [facility] E[facility] [id number] Univers 13:34:00 18:25:00 TRE ityudith [facility] 2021-07-06 2021-07-06 Emergency [facility] [id number] Univers 13:34:00 18:25:00 Tre Wolff KACEY [id number] i ty of [place] 4.2.7.2.686 [facility] [id number] [address] 2021-07-06 2021-07-06 Orders Doctor BETTE [id number] Univers 00:00:00 00:00:00 Only Unassigned, VENTURA [id number] [facility] 4.2.7.2.686 Jan [id number] [place] [address] Branch 2020-12-07 2020-12-07 Emergency Tre Ruiz [facility] [id number] Univers 18:30:00 22:51:00 Drea Jamil [place] [id number] ity of [place] 4.2.7.2.686 [facility] [id number] [address] 2020-02-26 2020-02-26 Emergency [facility] [id number] 16:35:00 16:59:00 Raquel Burt [id number] [place] [address] [place] [address] [id number] [facility] 2020-02-26 2020-02-26 Orders Doctor BETTE [id number] 00:00:00 00:00:00 Only Unassigned, VENTURA [id number] [facility] 4.2.7.2.686 [id number] 2017-11-11 2017-11-11 Outpatient Nestor Adler 15 [id number] Common 15:45:00 15:45:00 [facility] 2017-10-21 2017-10-21 Outpatient Nestor Adler 14 [id number] Common 13:15:00 13:15:00 [facility] [address] [facility] 2017-09-10 2017-09-10 Outpatient Nestor Adler 14 [id number] Common 15:00:00 15:00:00 [facility] [address] [facility] Results Test Description Test Time Test Comments Results Result Comments Source POCT TEST 2021-07-06 19:00:00 Test Item Value Reference Range Interpretation Comme nts POCT PREG (test code = 1605) negative On board controls acceptable with C Line (test code = 3574) present POCT PREG LOT # (test code = 3575) [id number] POCT PREG TEST DATE (test code = 3576) 2022-06-05 Lab Interpretation (test code = 99314-2) Normal [facility] WITH [id number] 02:41:11 Test Item Value Reference Range Interpretation Comments WBC (test code = See_Comment L [Automated 9259-2) message] The sy stem which generated this result transmitted reference range : 4.30 - 11.10 10*3/?L. The reference range was not used to interpret this result as normal/abnormal . RBC (test code = See_Comment [Automated 612-8) message] The sy stem which generated this [...] (test code = 36.7 fL 39.0-49.9 L 13120-6) RDW-CV (test code = 12.1 % 12.0-15.5 788-0) PLT (test code = See_Comment [Automated 227-3) message] The sy stem which generated this result transmitted reference range : 166 - 358 10*3/ ?L. The reference r sera was not used to interpret this result as normal/abnormal . MPV (test code = 9.9 fL 9.5-12.9 02568-6) NRBC/100 WBC (test See_Comment [Automat ed code = 8796158195) message] The system which generated this result transmitted reference range : 0.0 - 10.0 /100 WBCs. The refer ence range was not u sed to interpret th is result as normal/abnormal . NRBC x10^3 (test code <0.01 See_Comment [Auto mated = 9747463887) message] The s ystem which generated this result transmitted reference range : 10*3/?L. The reference range was not used to interpret this result as normal/abnormal . GRAN MAT (NEUT) % 61.4 % (test code = 770-8) IMM GRAN % (test code 0.30 % = 0527998754) LYMPH % (test code = 24.0 % 736-9) MONO % (test code = 12.8 % 5905-5) EOS % (test code = 0.9 % 713-8) BASO % (test code = 0.6 % 706-2) GRAN MAT x10^3(ANC) 1.97 10*3/uL 1.88-7.09 (test code = 5307342745) IMM GRAN x10^3 (test <0.03 0.00-0.06 code = 4981498287) LYMPH x10^3 (test code 0.77 10*3/uL 1.32-3.29 L = 731-0) MONO x10^3 (test code 0.41 10*3/uL 0.33-0.92 = 742-7) EOS x10^3 (test code = 0.03 10*3/uL 0.03-0.39 711-2) BASO x10^3 (test code <0.03 0.01-0.07 = 704-7) LG GRAN LYMPHS (test Rare Rare code = 0502801278) REACT LYMPHS (test Rare code = 1973495878) Lab Interpretation Abnormal (test code = 89739-1) [facility] [id number] 01:55:23 Test Item Value Reference Range Interpretation Comments EBV Mononucleosis Screen (test code Negative Negative = 3113214156) Lab Interpretation (test code = Normal 78496-9) [facility]21[facility] 01:45:45 Test Item Value Reference Range Interpretation Comments APPEARANCE (test code = Cloudy Clear A 8943242598) COLOR (test code = Yellow Yellow 9158836134) PH (test code = 4.8-8.0 0110476210) SP GRAVITY (test code = 1.003-1.030 9776247635) GLU U QUAL (test code = Normal Normal 6751630183) BLOOD (test code = Negative Negative Interfere nce from 6359590117) ascorbic acid m ay cause false neg ative results. KETONES (test code = Negative Negative 1293589292) PROTEIN (test code = Negative Negative 2887-8) UROBILIN (test code = Normal Normal 4651808244) BILIRUBIN (test code = Negative Negative 2108736264) NITRITE (test code = Negative Negative 0316914528) LEUK JULIEN (test code = Negative Negative 9438233913) RBC/HPF (test code = See_Comment [Autom ated message] 5153819842) The system haystagg generated this result transmitted ref erence range: 0 - 3 HP F. The reference range was not used to int erpret this result as normal/abnormal . WBC/HPF (test code = <1 See_Comment [Autom ated message] 0972014968) The system haystagg generated this result transmitted ref erence range: 0 - 5 HP F. The reference range was not used to int erpret this result as normal/abnormal . BACTERIA (test code = Few Negative A 4018718994) MUCOUS (test code = Slight Negative LPF A 7054789414) AMORPHOUS (test code = Moderate Rare HPF A 7097936942) SQ EPITH (test code = HPF 4735694280) Lab Interpretation (test Abnormal code = 85952-9) [facility] STREP SCREEN FOR GROUP [id number] 01:37:45 Test Item Value Reference Range Interpretation Comments Streptococcus pyogenes (group A) Negative Negative antigen (test code = 29215-5) Lab Interpretation (test code = Normal 43321-2) [facility] NOW RAPID TESTING)2020-12-08 01:31:50 Test Item Value Reference Range Interpretation Comments SARS-CoV-2 Rapid ID NOW Not Detected Not Detected (test code = 25893-3) STEFFANIE (test code = STEFFANIE) ID NOW COVID-19 Assay is an isothermal nucleic acid amplification test intended for the qualitative detection of nucleic acid from SARS-CoV-2 viral RNA in nasopharyngeal (PRECISION [employer]CTURE [employer]SEM[employer]ER) specimens. It is used under Emergency Use [...] indicated. Lab Interpretation Normal (test code = 94991-0) [facility] PAN[facility] (86190)2020-12-08 01:30:28 Test Item Value Reference Range Interpretation Comments NA (test code = 139 mmol/L 135-145 5285095137) K (test code = 3.8 mmol/L 3.5-5.0 8548858164) CL (test code = 100 mmol/L 98-108 3821281136) CO2 TOTAL (test code = 29 mmol/L 23-31 6452890963) AGAP (test code = 2-16 5188918956) BUN (test code = 9 mg/dL 7-23 6266970663) GLUCOSE (test code = 92 mg/dL 70-110 6575852546) CREATININE (test code = 0.70 mg/dL 0.50-1.04 9265081813) TOTAL BILI (test code = 0.2 mg/dL 0.1-1.5 7095637721) CALCIUM (test code = 9.5 mg/dL 8.6-10.6 4793752914) T PROTEIN (test code = 8.1 g/dL 6.3-8.2 1318482373) ALBUMIN (test code = 4.6 g/dL 3.5-5.0 5581103950) ALK PHOS (test code = 66 U/L 34-122 2912784690) ALTv (test code = 46 U/L 5-35 H 1742-6) AST(SGOT) (test code = 45 U/L 13-40 H 7404714281) eGFR (test code = mL/min/1.73m2 7806023687) STEFFANIE (test code = STEFFANIE) Association of [...] tests). Lab Interpretation Abnormal (test code = 39623-2) [facility] [id number] 01:05:00 Test Item Value Reference Range Interpretation Comments POCT PREG (test code = 1605) neg On board controls acceptable with yes C Line (test code = 3574) POCT PREG LOT # (test code = 3575) [id number] POCT PREG TEST DATE (test 04/07/2022 code = 3576) Lab Interpretation (test code = Normal 74318-9) [facility]"
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
[2021-12-26] MEDS ORDERED: LIDOCAINE 4% PATCH ONE (14:17)
[2021-12-26] MEDS ORDERED: methocarbamoL 500 MG TAB ONE (14:17)
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
--- NOTE | 2021-12-26 15:08 | RAD REPORT ---
EXAM DESCRIPTION: Francesco Single View12/26/2021 2:26 pm CLINICAL HISTORY: Chest pain COMPARISON: 2017 FINDINGS: The lungs appear clear of acute infiltrate. The heart is normal size IMPRESSION: No acute abnormalities displayed
--- NOTE | 2021-12-26 15:09 | RAD REPORT ---
EXAM DESCRIPTION: RAD - Knee Left 3 View - 12/26/2021 2:26 pm CLINICAL HISTORY: Left knee pain FINDINGS: No fracture or dislocation is seen.
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
[2021-12-26] MEDS ORDERED: KETOROLAC 30 MG/ML INJ ONE (15:15)
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
[2021-12-27 17:45] VITALS: TEMP 98.6
[2021-12-27 17:53] VITALS: BP 95/61; O2SAT 99
== END 2021-12-26 15:32 | disposition home or self-care (01) ==
LOC: ER 12:43
DX: S09.90XA Unspecified injury of head, initial encounter (principal); S00.83XA Contusion of other part of head, initial encounter; S70.212A Abrasion, left hip, initial encounter; M54.2 Cervicalgia; V49.49XA Driver injured in collision with other motor vehicles in traffic accident, initial encounter
CPT/HCPCS: 70450; 72125; 70486; 76377; 71045; 72170; 73562 ×2; J2001; 96372; 99284

== ENCOUNTER 2022-02-28 09:16 | Emergency (ER) | payer OTHER ==
--- OUTSIDE RECORDS SUMMARY | 2022-02-28 09:21 | XMS REPORT | Continuity of Care Document ---
:1990 Author Organization [facility] t Address [address] [place] [place] [address] Care Team Providers Name Role Phone PCP, PATIENT DOES NOT HAVE A Primary Care Physician UnavailJORI Mendes Attending Clinician Unavailable Jori Cabrera MD Attending Clinician TRE RUIZ Attending Clinician Unavailable Tre Jones Attending Clinician Doctor Unassigned, [place] Attending Clinician Unavailable Drea Jamil MD Attending Clinician Raquel Tate Attending Clinician JORI CABRERA Admitting Clinician Unavailable TRE RUIZ Admitting Clinician Unavailable Payers Payer Name Policy Type Policy Number Effective Date Expiration Date S ource MEDICAID OF [place] [id number] 2020 00:00:00 [facility] [id number] 2020 [facility] STAR 00:00:00 Problems Condition Condition Condition Status Onset Resolution Last Treating Co mments Source Name Details Category Date Date Treatment Clinician Date Vaginal Vaginal Disease Active Univers odor odor 4-24 ity of 00:00: [address] Vaginal Vaginal Disease Active Univers discharge discharge 4-24 ity of 00:00: [address] Screening Screening Disease Active Uni vers for STD for STD 09 [place] of ([place]ually ([place] transmit[place] transmit[place] 00 [place] dical d disease) d disease) Br anch Other Other Disease Active 2015-04 [facility] [place] [facility] general general -03 ity of counseling [place] advice 00 Me erika [facility] for Branch contracept contracept jessica jessica management management Seasonal Seasonal Problem Active Commo n allergies allergies Spir it - [facility] Gastroesop Gastroesop Diagnosis Active Common hageal hageal Spirit reflux reflux - [facility] disease disease [facility] Oral Oral Diagnosis Active Common aphthous aphthous Spirit ulcer ulcer - [facility] Allergies, Adverse Reactions, Alerts Allergy Allergy Status Severity Reaction(s) Onset Inactive Treating Comm ents Source Name Type Date Date Clinician NO KNOWN Drug Active Univers ALLERGIE Class ity of S [facility] Social History Social Habit Start Date Stop Date Quantity Comments Source History SDOH University o f Alcohol Frequency [place] M edical [place] History SDOH University o f Alcohol Std [place] Medical Drinks Branch History SDOH University o f Alcohol Binge [place] Medic al Branch ASSERTION [facility] Exposure to 2022-02-02 2022-02-12 Not sure [facility] SARS-CoV-2 00:00:00 10:21:00 [facility] (event) [place] Alcohol intake 2022-02-12 2022-02-12 0 /d University of 00:00:00 00:00:00 [facility] Tobacco use and 2014-02-10 2014-02-10 Smokeless tobacco Un iversity of exposure 00:00:00 00:00:00 non-user [facility] History of 2013-09-10 Cigarette Smoker [facility] of tobacco use 00:00:00 [facility] Alcohol Comment 2012-10-15 2012-10-15 Occasional ETOH Univ ersity of 00:00:00 00:00:00 [facility] Sex Assigned At [birth year] Universit y of 00:00:00 00:00:00 [facility] Smoking Status Start Date Stop Date Source Ex-smoker 2014-02-10 00:00:00 2014-02-10 00:00:00 [facility] Medications Ordered Filled Start Stop Current Ordering Indication Dosage Frequency Signature Comments Components Source Medication Medication Date Date Medication? Clinician (SIG) Name Name iopamidol 2021- No [id number] 100mL 100 mL, Univers (ISOVUE 07-06 Intravenou [...] Branch tablet 07/06/21 at 1645, JAMES ketorolac 2020- No 30mg 30 mg, Unive rs (TORADOL) 12-08 Slow IV ity of injection 02:11: 02:16 Push, [place] 30 mg 00 :00 ONCE, 1 Medical dose, Wed Branch 12/07/20 at 2115, JAMES
Fa culty member approving Restricted medication : DREA JAMIL benzonatate Yes [id number] 200mg Take 1 Univers 200 mg 9- capsule by ity of capsule 00:00: mouth 3 [place] 00 (three) Medical times Branch daily as needed for Cough. ondansetron Yes [id number] 4mg Take 1 Univers (ZOFRAN) 4 - [...] 7-10). Indication s: acute pain benzonatate Yes [id number] 200mg Take 1 Univers 200 mg 9-01 capsule by ity of capsule 00:00: mouth 3 [place] 00 (three) Medical times Branch daily as needed for Cough. ondansetron Yes [id number] 4mg Take 1 Univers (ZOFRAN) 4 9-01 tablet by ity of mg tablet 00:00: mouth [place] 00 every 8 Medical (eight) Branch hours as needed for Nausea and Vomiting (N/V). traMADoL 2020-0 Yes [id number] 50mg Take 1 Univers (ULTRAM) 50 9-01 tablet by ity of mg tablet 00:00: mouth [place] 00 every 6 Medical (six) Branch hours as needed for Pain (scale 7-10). Indication s: acute pain benzonatate 2020-0 Yes [id number] 200mg Take 1 Univers 200 mg 9-01 capsule by ity of capsule 00:00: mouth 3 [place] 00 (three) Medical times Branch daily as needed for Cough. ondansetron 2020-0 Yes [id number] 4mg Take 1 Univers (ZOFRAN) 4 9-01 tablet by ity of mg tablet 00:00: mouth [place] 00 every 8 Medical (eight) Branch hours as needed for Nausea and Vomiting (N/V). traMADoL 2020-0 Yes [id number] 50mg Take 1 Univers (ULTRAM) 50 9-01 tablet by ity of mg tablet 00:00: mouth [place] 00 every 6 Medical (six) Branch hours as needed for Pain (scale 7-10). Indication s: acute pain benzonatate 2020-0 Yes [id number] 200mg Take 1 Univers 200 mg 9-01 capsule by ity of capsule 00:00: mouth 3 [place] 00 (three) Medical times Branch daily as needed for Cough. ondansetron 2020-0 Yes [id number] 4mg Take 1 Univers (ZOFRAN) 4 9-01 tablet by ity of mg tablet 00:00: mouth [place] 00 every 8 Medical (eight) Branch hours as needed for Nausea and Vomiting (N/V). traMADoL 2020-0 Yes [id number] 50mg Take 1 Univers (ULTRAM) 50 9-01 tablet by ity of mg tablet 00:00: mouth [place] 00 every 6 Medical (six) Branch hours as needed for Pain (scale 7-10). Indication s: acute pain acetaminoph 2020-0 Yes [id number] 1{tbl} Take 1 Un viktoriya en-codeine 4-22 tablet by ity of 300-30 mg 00:00: mouth [place] tablet 00 every 4 Medical (four) Branch hours as needed for Pain (scale 4-6). Indication s: acute pain naproxen 2020-0 Yes [id number] 500mg Take 1 U nivers (NAPROSYN) 4-22 [...] Indication s: acute pain naproxen 2020-0 Yes [id number] 500mg Take 1 U nivers (NAPROSYN) 4-22 [...] Indication s: acute pain naproxen 2020-0 Yes [id number] 500mg Take 1 U nivers (NAPROSYN) 4-22 [...] Indication s: acute pain naproxen 2020-0 Yes [id number] 500mg Take 1 U nivers (NAPROSYN) 4-22 [...] mouth 2 (two) Medical times Branch daily. famotidine 2017- Yes 20mg Take 1 Unive rs (PEPCID) 20 9-08 tablet by ity of mg tablet 00:00: mouth 2 [place] 00 (two) Medical times Branch daily. GNP GNP 2017- Yes Doyle 1 tablet Common Omeprazole Omeprazole -16 Alex Sp sheeba 00:00: - [facility] 00 [facility] Benzocaine Benzocaine 2018- No Doyle 1 lozenge Common 16 09-14 Alex as needed Spirit 00:00: 00:00 - [facility] 00 :00 [facility]S CVS Yes Doyle 1 spray in Commo n Fluticasone Fluticasone 6-05 Alex each Spirit Propionate Propionate 00:00: nostril - [facility] 00 [facility] ProAir HFA ProAir HFA Yes Doyle 2 puffs as Common 6-05 Alex needed Spirit 00:00: - [facility] 00 [facility] benzonatate Yes 100mg Take 1 Uni vers 100 mg 4-17 capsule by ity of capsule 00:00: mouth 3 [place] 00 (three) Medical times Branch daily as needed for Cough. benzonatate Yes 100mg Take 1 Uni vers 100 mg 4-17 capsule by ity of capsule 00:00: mouth 3 (three) Medical times Branch daily as needed for Cough. benzonatate Yes 100mg Take 1 Uni vers 100 mg 4-17 capsule by ity of capsule 00:00: mouth 3 [place] 00 (three) Medical times Branch daily as needed for Cough. benzonatate 0 Yes 100mg Take 1 Uni vers 100 mg 4-17 capsule by ity of capsule 00:00: mouth 3 [place] 00 (three) Medical times Branch daily as needed for Cough. metroNIDAZO 2016-04 Yes [id number] 500mg Take 1 Univers LE (FLAGYL) 1-09 tablet by ity of 500 mg 00:00: mouth 2 [place] tablet 00 (two) Medical times Branch daily. metroNIDAZO 2016-04 Yes [id number] 500mg Take 1 Univers LE (FLAGYL) 1-09 tablet by ity of 500 mg 00:00: mouth 2 [place] tablet 00 (two) Medical times Branch daily. metroNIDAZO 2016- Yes [id number] 500mg Take 1 Univers LE (FLAGYL) 1-09 tablet by ity of 500 mg 00:00: mouth 2 [place] tablet 00 (two) Medical times Branch daily. metroNIDAZO 2016-04 Yes [id number] 500mg Take 1 Univers LE (FLAGYL) 1-09 tablet by ity of 500 mg 00:00: mouth 2 [place] tablet 00 (two) Medical times Branch daily. medroxyPROG 2017- Yes [id number] 150mg Univers ESTERone 1-24 ity of (DEPO-PROVE 20:15: [place] RA) 00 Medical injection Branch 150 mg medroxyPROG 2017- Yes [id number] 150mg Univers ESTERone 1-24 ity of (DEPO-PROVE 20:15: [place] RA) 00 Medical injection Branch 150 mg medroxyPROG 2017- Yes [id number] 150mg Univers ESTERone 1-24 ity of (DEPO-PROVE 20:15: [place] RA) 00 Medical injection Branch 150 mg medroxyPROG 2017- Yes [id number] 150mg Univers ESTERone 1-24 ity of (DEPO-PROVE 20:15: [place] RA) 00 Medical injection Branch 150 mg Cetirizine Cetirizine Yes Doyle 1 tablet Common HCl HCl Alex [facility] Immunizations Ordered Filled Immunization Date Status Comments Sour e Immunization Name Name [facility] 2017-08-14 Completed University of 00:00:00 [facility] HPV9 2017-08-14 Completed University of 00:00:00 [facility] HPV9 2017-08-14 Completed University of 00:00:00 [facility] HPV9 2017-08-14 Completed University of 00:00:00 [facility] HPV9 2017-04-16 Completed University of 00:00:00 [facility] HPV9 2017-04-16 Completed University of 00:00:00 [facility] HPV9 2017-04-16 Completed University of 00:00:[address] [facility] 2017-04-16 Completed University of 00:00:[address] [facility] 2017-02-14 Completed University of 00:00:00 [facility] HPV9 2017-02-14 Completed University of 00:00:00 [facility] HPV9 2017-02-14 Completed University of 00:00:00 [facility] Branch HPV9 2017-02-14 Completed University of 00:00:00 [facility] PPD (TB) 2008-06-01 Completed University of 00:00:00 [facility] PPD (TB) 2008-06-01 Completed University of 00:00:00 [facility] PPD (TB) 2008-06-01 Completed University of 00:00:00 [facility] Branch Td 2007-04-08 Completed University of 00:00:00 [facility] Branch Td 2007-04-08 Completed University of 00:00:00 [facility] Branch Td 2007-04-08 Completed University of 00:00:00 [facility] Td 2007-04-08 Completed University of 00:00:00 [facility] Vital Signs Vital Name Observation Time Observation Value Comments Source Systolic blood 2022-02-12 16:22:00 94 mm[Hg] Univer sity of pressure [facility] Diastolic blood 2022-02-12 16:22:00 77 mm[Hg] Unive rsity of [facility] Heart rate 2022-02-12 16:22:00 110 /min [facility] Body temperature 2022-02-12 16:22:00 35.72 [facility] [place] Respiratory rate 2022-02-12 16:22:00 18 /min [facility] Body height 2022-02-12 16:22:00 160 cm [facility] Body weight 2022-02-12 16:22:00 49.896 kg [facility] BMI 2022-02-12 16:22:00 19.49 kg/m2 [facility] Oxygen saturation in 2022-02-12 16:22:00 99 /min University Arterial blood by [facility] Pulse oximetry Branch Systolic blood 2021-07-06 18:31:00 104 mm[Hg] Univer sity of pressure [facility] Diastolic blood 2021-07-06 18:31:00 70 mm[Hg] Unive rsity of pressure [facility] Heart rate 2021-07-06 18:31:00 94 [facility] 2021-07-06 18:31:00 36.61 Mitra Univ ersity of [facility] Respiratory rate 2021-07-06 18:31:00 18 /min [facility] ersity of [facility] Body weight 2021-07-06 18:31:00 52.164 kg Universi [facility] BMI 2021-07-06 18:31:00 20.37 kg/m2 [facility] Oxygen saturation in 2021-07-06 18:31:00 100 /min University of Arterial blood by [facility] Pulse oximetry Branch Systolic blood 2020-12-08 02:00:00 104 mm[Hg] Univer sity of [facility] Diastolic blood 2020-12-08 02:00:00 70 mm[Hg] Unive rsity of [facility] Heart rate 2020-12-08 02:00:00 68 /min [facility] [place] [facility] Respiratory rate 2020-12-08 02:00:00 18 /min [facility] [place] Oxygen saturation in 2020-12-08 02:00:00 99 /min [place] of Arterial blood by [facility] Pulse oximetry Branch Body temperature 2020-12-08 01:00:00 37.28 [facility] [place] Body height 2020-12-07 23:28:00 160 cm [facility] Body weight 2020-12-07 23:28:00 52.164 kg [facility] BMI 2020-12-07 23:28:00 20.37 kg/m2 [facility] Procedures Procedure Date / Time Performed Performing Clinician Sourjeni e XR SHOULDER 2+ VW 2022-02-12 18:25:05 Jori Cabrera [facility] CONSENT/REFUSAL FOR 2022-02-12 16:16:40 Doctor Unassigned, No [facility] [place] DIAGNOSIS AND Name Medical Branch TREATMENT CT THORAX W CONTRAST 2021-07-06 21:11:00 Tre Ruiz [facility] POCT TEST 2021-07-06 19:00:00 Tre Ruiz [facility] CONSENT/REFUSAL FOR 2021-07-06 17:48:23 Doctor Unassigned, No [facility] [place] DIAGNOSIS AND Name Medical Branch TREATMENT XR CHEST 1 VW 2020-12-08 02:24:09 Drea Jamil [facility] COMP. METABOLIC PANEL 2020-12-08 01:08:00 Drea Jamil [facility] ([id number]) [facility] CBC WITH DIFF 2020-12-08 01:08:00 Drea Jamil [facility] URINALYSIS 2020-12-08 01:08:00 Drea Jamil [facility] EBV-MONONUCLEOSIS 2020-12-08 01:08:00 Drea Jamil [facility] SCREEN Medical Branch RAPID STREP SCREEN FOR 2020-12-08 01:08:00 Drea Jamil [facility] COVID-19 (ID NOW RAPID 2020-12-08 01:08:00 Drea Jamil [facility] TESTING) Medical [place] POCT TEST 2020-12-08 01:05:00 Drea Jamil [facility] NOTICE OF PRIVACY 2020-12-07 23:19:59 Doctor Unassigned, No [facility] PRACTICES Name [facility] CONSENT/REFUSAL FOR 2020-12-07 23:18:56 Doctor Unassigned, No [facility] DIAGNOSIS AND Name [facility] TREATMENT Encounters Start End Encounter Admission Attending Care Care Encounter Source Date/Time Date/Time Type Type Clinicians Facility Department ID 2021-02-06 Emergency [facility] [id number] Univers 19:48:10 [facility] [place] 2021-02-05 Emergency [facility] [id number] Univers 14:44:43 [facility] [place] 2021-02-04 Emergency [facility] [id number] Univers 07:00:35 [facility] [place] 2022-02-12 2022-02-12 Emergency X DEBORAH FLRANGEL ERT [id number] Univers 10:24:00 13:28:00 JORI [facility] [place] 2022-02-12 2022-02-12 Emergency Deborah [facility] [id number] Univers 10:24:00 13:28:00 Jori BURT 350.1.13.10 i ty of R[place] 4.2.7.2.686 [facility] [id number] [place] [address] Branch 2021-07-06 2021-07-06 Emergency X SARA [facility] ERT [id number] Univers 13:34:00 18:25:00 TRE ity of [facility] 2021-07-06 2021-07-[address] [facility] [id number] Univers 13:34:00 18:25:00 Tre S KACEY 350.1.13.10 i ty of [place] 4.2.7.2.686 [facility] [id number] [place] [address] Branch 2021-07-06 2021-07-06 Orders Doctor BETTE [id number] [facility] [place] [facility] 00:00:00 00:00:00 Only Unassigned, VENTURA 350.1.13.[address] [place] [facility] 4.2.7.2.686 Jan [id number] [place] [address] Branch 2020-12-07 2020-12-07 Emergency RuizTre alejandra S [facility] [id number] Univers 18:30:00 22:51:00 Drea Jamil 350.1.13.10 ity of [place] 4.2.7.2.[address] [facility] [id number] [place] [address] Branch 2020-02-26 2020-02-[address] [facility] [id number] 16:35:00 16:59:00 Raquel Burt 350.1.13.10 [place] 4.2.7.2.686 [place] [id number] [facility] 2020-02-26 2020-02-26 Orders Doctor BETTE [id number] 00:00:00 00:00:00 Only Unassigned, VENTURA 350.1.13.[address] [place] [facility] 4.2.7.2.686 [id number] 2017-11-11 2017-11-11 [facility] [id number] Common 15:45:00 15:45:00 [facility] 2017-10-21 2017-10-21 Outpatient Nestor Adler 14 [id number] Common 13:15:00 13:15:00 [facility] 2017-09-10 2017-09-10 Outpatient Nestor Adler 14 [id number] Common 15:00:00 15:00:00 [facility] Results Test Description Test Time Test Comments Results Result Comments Source POCT TEST 2021-07-06 19:00:00 Test Item Value Reference Range Interpretation Comme nts POCT PREG (test code = 1605) negative On board controls acceptable with C Line (test code = 3574) present POCT PREG LOT # (test code = 3575) [id number] POCT PREG TEST DATE (test code = 3576) 2022-06-05 Lab Interpretation (test code = 91504-7) Normal [facility] WITH [id number] 02:41:11 Test Item Value Reference Range Interpretation Comments WBC (test code = See_Comment L [Automated 6998-2) message] The sy stem which generated this result transmitted reference range : 4.30 - 11.10 10*3/?L. The reference range was not used to interpret this result as normal/abnormal . RBC (test code = See_Comment [Automated 309-8) message] The sy stem which generated this [...] (test code = 36.7 fL 39.0-49.9 L 38178-7) RDW-CV (test code = 12.1 % 12.0-15.5 788-0) PLT (test code = See_Comment [Automated 777-3) message] The sy stem which generated this result transmitted reference range : 166 - 358 10*3/ ?L. The reference r sera was not used to interpret this result as normal/abnormal . MPV (test code = 9.9 fL 9.5-12.9 20821-1) NRBC/100 WBC (test See_Comment [Automat ed code = 8162391561) message] The system which generated this result transmitted reference range : 0.0 - 10.0 /100 WBCs. The refer ence range was not u sed to interpret th is result as normal/abnormal . NRBC x10^3 (test code <0.01 See_Comment [Auto mated = 6183421047) message] The s ystem which generated this result transmitted reference range : 10*3/?L. The reference range was not used to interpret this result as normal/abnormal . GRAN MAT (NEUT) % 61.4 % (test code = 770-8) IMM GRAN % (test code 0.30 % = 0843150812) LYMPH % (test code = 24.0 % 736-9) MONO % (test code = 12.8 % 5905-5) EOS % (test code = 0.9 % 713-8) BASO % (test code = 0.6 % 706-2) GRAN MAT x10^3(ANC) 1.97 10*3/uL 1.88-7.09 (test code = 9910139894) IMM GRAN x10^3 (test <0.03 0.00-0.06 code = 8222833892) LYMPH x10^3 (test code 0.77 10*3/uL 1.32-3.29 L = 731-0) MONO x10^3 (test code 0.41 10*3/uL 0.33-0.92 = 742-7) EOS x10^3 (test code = 0.03 10*3/uL 0.03-0.39 711-2) BASO x10^3 (test code <0.03 0.01-0.07 = 704-7) LG GRAN LYMPHS (test Rare Rare code = 3175618741) REACT LYMPHS (test Rare code = 2950796157) Lab Interpretation Abnormal (test code = 64229-6) [facility] [id number] 01:55:23 Test Item Value Reference Range Interpretation Comments EBV Mononucleosis Screen (test code Negative Negative = 6923978373) Lab Interpretation (test code = Normal 22889-0) [facility]21[facility] 01:45:45 Test Item Value Reference Range Interpretation Comments APPEARANCE (test code = Cloudy Clear A 4951716093) COLOR (test code = Yellow Yellow 5388892543) PH (test code = 4.8-8.0 4854415594) SP GRAVITY (test code = 1.003-1.030 1808164914) GLU U QUAL (test code = Normal Normal 9064976680) BLOOD (test code = Negative Negative Interfere nce from 1061865188) ascorbic acid m ay cause false neg ative results. KETONES (test code = Negative Negative 6122274385) PROTEIN (test code = Negative Negative 2887-8) UROBILIN (test code = Normal Normal 9309980810) BILIRUBIN (test code = Negative Negative 4828024842) NITRITE (test code = Negative Negative 8683939448) LEUK JULIEN (test code = Negative Negative 9849703085) RBC/HPF (test code = See_Comment [Autom ated message] 6275987943) The system [employer] generated this result transmitted ref erence range: 0 - 3 HP F. The reference range was not used to int erpret this result as normal/abnormal . WBC/HPF (test code = <1 See_Comment [Autom ated message] 5766659015) The system [employer] generated this result transmitted ref erence range: 0 - 5 HP F. The reference range was not used to int erpret this result as normal/abnormal . BACTERIA (test code = Few Negative A 4427849350) MUCOUS (test code = Slight Negative LPF A 3240085475) AMORPHOUS (test code = Moderate Rare HPF A 0271919075) SQ EPITH (test code = HPF 1565449219) Lab Interpretation (test Abnormal code = 32919-7) [facility] STREP SCREEN FOR GROUP [id number] 01:37:45 Test Item Value Reference Range Interpretation Comments Streptococcus pyogenes (group A) Negative Negative antigen (test code = 36938-6) Lab Interpretation (test code = Normal 57037-3) [facility]ID NOW RAPID TESTING)2020-12-08 01:31:50 Test Item Value Reference Range Interpretation Comments SARS-CoV-2 Rapid ID NOW Not Detected Not Detected (test code = 51274-8) STEFFANIE (test code = STEFFANIE) ID NOW COVID-19 Assay is an isothermal nucleic acid amplification test intended for the qualitative detection of nucleic acid from SARS-CoV-2 viral RNA in nasopharyngeal (BAR HELPER) specimens. It is used under Emergency Use [...] indicated. Lab Interpretation Normal (test code = 18303-2) [facility]. METABOLIC PANEL (51607)2020-12-08 01:30:28 Test Item Value Reference Range Interpretation Comments NA (test code = 139 mmol/L 135-145 7961408971) K (test code = 3.8 mmol/L 3.5-5.0 3255986012) CL (test code = 100 mmol/L 98-108 2411342494) CO2 TOTAL (test code = 29 mmol/L 23-31 2167350650) AGAP (test code = 2-16 5756849483) BUN (test code = 9 mg/dL 7-23 2859442629) GLUCOSE (test code = 92 mg/dL 70-110 1158333985) CREATININE (test code = 0.70 mg/dL 0.50-1.04 2335580545) TOTAL BILI (test code = 0.2 mg/dL 0.1-1.4 0704658175) CALCIUM (test code = 9.5 mg/dL 8.6-10.6 2149230536) T PROTEIN (test code = 8.1 g/dL 6.3-8.2 5435813486) ALBUMIN (test code = 4.6 g/dL 3.5-5.0 6147778142) ALK PHOS (test code = 66 U/L 34-122 4068634206) ALTv (test code = 46 U/L 5-35 H 1742-6) AST(SGOT) (test code = 45 U/L 13-40 H 7605825082) eGFR (test code = mL/min/1.73m2 1698916979) STEFFANIE (test code = STEFFANIE) Association of [...] tests). Lab Interpretation Abnormal (test code = 80151-4) [facility] [id number] 01:05:00 Test Item Value Reference Range Interpretation Comments POCT PREG (test code = 1605) neg On board controls acceptable with yes C Line (test code = 3574) POCT PREG LOT # (test code = 3575) [id number] POCT PREG TEST DATE (test 04/07/2022 code = 3576) Lab Interpretation (test code = Normal 71562-5) [facility]"
[2022-02-28] MEDS ORDERED: TETRACAINE HCL 0.5% 4ML OPTH ONE (09:29)
[2022-02-28] MEDS ORDERED: FLUORESCEIN SODIUM 1 MG/WRAP ONE (09:29)
--- NOTE | 2022-02-28 09:39 | EDPHYS ---
Physician Documentation [facility] – [place], [place] Name: Alanna Dumont Age: 32 yrs Sex: Female : 1990 Arrival Date: 02/28/2022 Time: 09:18 Bed 12 Private MD: ED Physician Trino Ardon HPI: 02/28 09:48 This 32 yrs old Female presents to ER via Ambulatory with complaints of Grease In Eye. kb 09:48 The patient is experiencing pain, redness, The patient sustained a splash, to the left kb eye, caused by hot grease/oil. Onset: The symptoms/episode began/occurred last night. Duration: the symptoms are continuous. Aggravated by light, opening eye, Alleviated by nothing. Associated signs and symptoms: Pertinent positives: None. Patient does not utilize any form of vision correction. Severity of symptoms: At their worst the symptoms were moderate in the emergency department the symptoms are unchanged. The patient has not experienced similar symptoms in the past. The patient has not recently seen a physician. Pt reports hot grease splashed into left eye last night and she continues to have burning pain today. Reports she is able to see out of eye, but it is painful to open it. 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 - Social history:: Smoking status: Patient denies any tobacco usage or history of. ROS: 09:48 Constitutional: Negative for fever, chills, and weight loss. kb 09:48 Eyes: Positive for pain, redness. 09:48 All other systems are negative. Exam: 09:47 Constitutional: This is a well developed, well nourished patient who is awake, alert, kb and in no acute distress. Head/Face: Normocephalic, atraumatic. ENT: Moist Mucous membranes Cardiovascular: Regular rate and rhythm with a normal S1 and S2. No gallops, murmurs, or rubs. No pulse deficits. Respiratory: Respirations even and unlabored. No increased work of breathing. Talking in full sentences Skin: Warm, dry with normal turgor. Normal color. MS/ Extremity: Pulses equal, no cyanosis. Neurovascular intact. Full, normal range of motion. Neuro: Awake and alert, GCS 15, oriented to person, place, time, and situation. Moves all extremities. Normal gait. 09:47 Eyes: Periorbital structures: appear normal, Pupils: equal, round, and reactive to light and accomodation, Extraocular movements: intact throughout, Conjunctiva: injected, in the left eye, Corneas: abrasion, is not appreciated, foreign body, is not appreciated, a fluorescein strip employed to appreciate the findings. Vital Signs: 09:31 BP 117 / 91; Pulse 78; Resp 20; Temp 98.5; Pulse Ox 100% ; Weight 49.9 kg; Height 5 ft. ll1 4 in. (162.56 cm); Pain 10/10; 09:31 Body Mass Index 18.88 (49.90 kg, 162.56 cm) ll1 Visual Acuity: 09:44 Left Eye Visual acuity 20/25, ; Right Eye Visual acuity 20/25, ; Without Lenses; iw Procedures: 09:47 Eye Exam: Tetracaine. kb MDM: 09:22 Patient medically screened. kb 09:36 Data reviewed: vital signs, nurses notes. Data interpreted: Pulse oximetry: on room air kb is 100 %. Interpretation: normal. Counseling: I had a detailed discussion with the patient and/or guardian regarding: the historical points, exam findings, and any diagnostic results supporting the discharge/admit diagnosis, the need for outpatient follow up, an opthalmologist, to return to the emergency department if symptoms worsen or persist or if there are any questions or concerns that arise at home. 02/28 09:39 Order name: Eye Tray; Complete Time: 09:44 kb 02/28 09:39 Order name: Fluoresene Opth strip; Complete Time: :44 kb 02/28 09:39 Order name: Visual Acuity; Complete Time: :44 kb Administered Medications: :47 Drug: Tetracaine Drops 0.5 % 1 drops Route: Ophthalmic; Site: left eye; iw 09:51 Follow up: Response: No adverse reaction ll1 Disposition: 11:05 Co-signature as Attending Physician, Trino Ardon MD I agree with the assessment and rt plan of care. Disposition Summary: 11/23/22 09:38 Discharge Ordered Location: Home kb Condition: Stable kb Diagnosis - Unspecified conjunctivitis kb Followup: kb - With: Emergency Department - When: As needed - Reason: Worsening of condition Followup: kb - With: Private Physician - When: 2 - 3 days - Reason: Recheck today's complaints, Continuance of care, Re-evaluation by your physician Discharge Instructions: - Discharge Summary Sheet kb - Chemical Conjunctivitis, Adult, [id number] kb - Chemical Burn of the Eyes, Adult kb Forms: - Medication Reconciliation Form kb - Thank You Letter kb - Antibiotic Education kb - Prescription Opioid Use kb - Work release form iw Prescriptions: - Erythromycin 5 mg/gram (0.5 %) Ophthalmic Ointment - apply 1 centimeter by OPHTHALMIC route 3 times per day for 7 days; 1 tube; kb Refills: 0, Product Selection Permitted Signatures: Lynda Huber, RICARDA-C RICARDA-Radha Jones, RN RN iw Rod Bliss RN RN ll1 Trino Ardon MD MD rt
--- NOTE | 2022-02-28 09:39 | ER ---
Nurse's Notes [facility] Name: Alanna Dumont Age: 32 yrs Sex: Female : 1990 Arrival Date: 02/28/2022 Time: 09:18 Bed 12 Private MD: Diagnosis: Unspecified conjunctivitis Presentation: 02/28 09:31 Chief complaint: Patient states: Hot grease into L eye last night. Coronavirus screen: 1 Vaccine status: Patient reports being unvaccinated. Client denies travel out of the [place] in the last 14 days. At this time, the client does not indicate any symptoms associated with coronavirus-19. Ebola Screen: Patient denies travel to an Ebola-affected area in the 21 days before illness onset. Initial Sepsis Screen: Does the patient meet any 2 criteria? No. Patient's initial sepsis screen is negative. Does the patient have a suspected source of infection? Yes: Other: eye. Risk Assessment: Do you want to hurt yourself or someone else? Patient reports no desire to harm self or others. Onset of symptoms was February 27, 2022. 09:31 Method Of Arrival: Ambulatory [facility] 09:31 Acuity: LUIS FELIPE 2 ll1 Triage Assessment: 09:29 General: Appears uncomfortable, Behavior is appropriate for age, restless. Pain: 1 Complains of pain in left eye Pain currently is 10 out of 10 on a pain scale. Quality of pain is described as aching, throbbing. EENT: Reports pain in left eye. Neuro: No deficits noted. Cardiovascular: No deficits noted. Injury Description: hot grease into L eye last night. 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 - Social history:: Smoking status: Patient denies any tobacco usage or history of. Screenin:45 Abuse screen: Denies threats or abuse. Denies injuries from another. Nutritional iw screening: No deficits noted. Tuberculosis screening: No symptoms or risk factors identified. Fall Risk None identified. Assessment: 09:45 General: Appears uncomfortable, Behavior is calm, cooperative. Neuro: Level of iw Consciousness is awake, alert, obeys commands, Oriented to person, place, time, situation, Moves all extremities. Full function. Derm: Skin is intact, is healthy with good turgor. 09:51 Reassessment: No changes from previously documented assessment. Patient and/or family ll1 updated on plan of care and expected duration. Pain level reassessed. Vital Signs: 09:31 BP 117 / 91; Pulse 78; Resp 20; Temp 98.5; Pulse Ox 100% ; Weight 49.9 kg; Height 5 ft. ll1 4 in. (162.56 cm); Pain 10/10; 09:31 Body Mass Index 18.88 (49.90 kg, 162.56 cm) ll1 Visual Acuity: 09:44 Left Eye Visual acuity 20/25, ; Right Eye Visual acuity 20/25, ; Without Lenses; iw ED Course: 09:18 Patient arrived in ED. rg4 09:22 Lynda Huber [facility]-C [facility] kb 09:22 Trino Ardon MD is Attending Physician. kb 09:29 Arm band placed on Patient placed in an exam room, on a stretcher. ll1 09:31 Triage completed. ll1 09:35 Radha Frias RN is Primary Nurse. iw 09:45 No provider procedures requiring assistance completed. Patient did not have IV access iw during this emergency room visit. 09:51 Patient has correct armband on for positive identification. Bed in low position. Call ll1 light in reach. Cardiac monitoring not applicable on this patient. Administered Medications: 09:47 Drug: Tetracaine Drops 0.5 % 1 drops Route: Ophthalmic; Site: left eye; iw 09:51 Follow up: Response: No adverse reaction ll1 Medication: 09:51 VIS not applicable for this client. ll1 Outcome: 09:38 Discharge ordered by . kb 09:51 Discharged to home ambulatory. ll1 09:51 Condition: stable 09:51 Discharge instructions given to patient, family, Instructed on discharge instructions, follow up and referral plans. medication usage, Demonstrated understanding of instructions, follow-up care, medications, Prescriptions given X 1. 09:51 Patient left the ED. ll1 Signatures: Lynda Huber FNP-C FNP-Radha Jones RN RN Shannan Tripp rg4 Rod Bliss, RN RN ll1
[2022-02-28 10:15] VITALS: BP 117/91; TEMP 98.5; O2SAT 100
== END 2022-02-28 09:51 | disposition home or self-care (01) ==
LOC: ER 09:16
DX: H10.9 Unspecified conjunctivitis (principal)
CPT/HCPCS: 99283

== ENCOUNTER 2022-03-16 02:13 | Emergency (ER) | payer OTHER ==
--- OUTSIDE RECORDS SUMMARY | 2022-03-16 02:16 | XMS REPORT | Continuity of Care Document ---
:1990 Author Organization [facility] t Address [address] [place] [place] [address] Care Team Providers Name Role Phone PCP, PATIENT DOES NOT HAVE A Primary Care Physician UnavailJORI Mendes Attending Clinician Unavailable Jori Cabrera MD Attending Clinician TRE RUIZ Attending Clinician Unavailable Tre Jones Attending Clinician Doctor Unassigned, [place] Attending Clinician Unavailable Drea Doss MD Attending Clinician Raquel Tate Attending Clinician JORI CABRERA Admitting Clinician Unavailable TRE RUIZ Admitting Clinician Unavailable Payers Payer Name Policy Type Policy Number Effective Date Expiration Date S ource [place]ICAID [place] [id number] 2020 00:00:00 [facility] [id number] 2020 [facility] 00:00:00 Problems Condition Condition Condition Status Onset Resolution Last Treating Co mments Source Name Details Category Date Date Treatment Clinician Date Vaginal Vaginal Disease Active Univers odor odor 4-24 ity of 00:00: [address] Vaginal Vaginal Disease Active Univers discharge discharge 4-24 ity of 00:00: [address] Screening Screening Disease Active Uni vers for STD for STD 09 [place] of (sexually ([place] transmit[place] transmitte 00 [place] dical d disease) d disease) Br anch Other Other Disease Active 2015-04 [facility] general general -03 ity of counseling counseling [place] and advice and advice 00 Me erika [facility] contracept contracept jessica jessica management management Seasonal Seasonal Problem Active Commo n allergies allergies Spir it - [facility] Gastroesop Gastroesop Diagnosis Active Common hageal hageal Spirit reflux reflux - [facility] disease disease [facility] without without [facility] esophag[facility] esophagiti Me [facility] Oral Oral Diagnosis Active Common aphthous aphthous Spirit ulcer ulcer - [facility] Allergies, Adverse Reactions, Alerts Allergy Allergy Status Severity Reaction(s) Onset Inactive Treating Comm ents Source Name Type Date Date Clinician NO KNOWN Drug Active Univers ALLERGIE Class ity of S [facility] Social History Social Habit Start Date Stop Date Quantity Comments Source History SDOH University o f Alcohol Frequency [place] [facility] History SDOH University o f Alcohol Std [place] [facility] Drinks [facility] History SDOH University o f Alcohol Binge [place] [facility] ASSERTION [facility] Exposure to 2022-02-02 2022-02-12 Not sure [facility] SARS-CoV-2 00:00:00 10:21:00 [facility] (event) [place] Alcohol intake 2022-02-12 2022-02-12 0 /d University of 00:00:00 00:00:00 [facility] Tobacco use and 2014-02-10 2014-02-10 Smokeless tobacco Un iversity of exposure 00:00:00 00:00:00 non-user [facility] History of 2013-09-10 Cigarette Smoker [facility] of tobacco use 00:00:00 [facility] Alcohol Comment 2012-10-15 2012-10-15 Occasional ETOH Univ ersity of 00:00:00 00:00:00 [facility] Sex Assigned At [birth year] Universit y of 00:00:00 00:00:00 [facility] Smoking Status Start Date Stop Date Source Ex-smoker 2014-02-10 00:00:00 2014-02-10 00:00:00 [facility] Medications Ordered Filled Start Stop Current Ordering Indication Dosage Frequency Signature Comments Components Source Medication Medication Date Date Medication? Clinician (SIG) Name Name iopamidol 2021- No [id number] 100mL 100 mL, Univers (ISOVUE 07-06 Intravenou ity o f 370-500 mL) 22:15: 21:01 s, ONCE, 1 [place] injection 00 :00 dose, On Medica l 100 mL Yvonne Branch 07/06/21 at 1715, Routine HYDROcodone 2021-0 2021- No 1{tbl} 1 tablet, Univers -acetaminop 07-06 Oral, ity of hen (NORCO 21:45: 20:50 ONCE, 1 Jan as 5) 5-325 mg 00 :00 dose, On Medi elvis tablet 1 Yvonne Branch tablet 07/06/21 at 1645, JAMES benzonatate 2021-0 No 1mg 100 mg -19 capsule 00:00: 00 sertraline 2021-0 No 1mg 50 mg 1-05 tablet 00:00: 00 buspirone 5 2021-0 No 1mg mg tablet 1-05 00:00: 00 mirtazapine 2021-0 No 1mg 7.5 mg 1-05 tablet 00:00: 00 hydroxyzine 2021-0 No 1mg HCl 25 mg 1-05 tablet 00:00: 00 buspirone 5 2020-1 No 1mg mg tablet 2- 00:00: 00 mirtazapine 2020-1 No 1mg 7.5 mg 2-01 tablet 00:00: 00 mirtazapine 2020-1 No 1mg 7.5 mg 1-18 tablet 00:00: 00 sertraline 2020-1 No 1mg 25 mg 1-01 tablet 00:00: 00 hydroxyzine 2020-1 No 1mg HCl 10 mg -01 tablet 00:00: 00 ketorolac 2020-0 2020- No 30mg 30 mg, Unive rs (TORADOL) 12-08 Slow IV ity of injection 02:11: 02:16 Push, [place] 30 mg 00 :00 ONCE, 1 Medical dose, Wed Branch 12/07/20 at 2115, JAMES
Fa culty member approving Restricted medication : DREA DOSS benzonatate 2020-0 Yes [id number] 200mg Take 1 Univers 200 mg 12-07 capsule by ity of capsule 00:00: mouth 3 [place] 00 (three) Medical times Branch daily as needed for Cough. ondansetron 2021-0 Yes [id number] 4mg Take 1 Univers (ZOFRAN) 4 9-01 tablet by ity of mg tablet 00:00: mouth [place] 00 every 8 Medical (eight) Branch hours as needed for Nausea and Vomiting (N/V). traMADoL 2021-0 Yes [id number] 50mg Take 1 Univers (ULTRAM) 50 9-01 tablet by ity of mg tablet 00:00: mouth [place] 00 every 6 Medical (six) Branch hours as needed for Pain (scale 7-10). Indication s: acute pain benzonatate 2020-0 Yes [id number] 200mg Take 1 Univers 200 mg 9-01 capsule by ity of capsule 00:00: mouth 3 [place] 00 (three) Medical times Branch daily as needed for Cough. ondansetron 2021-0 Yes [id number] 4mg Take 1 Univers (ZOFRAN) 4 9-01 tablet by ity of mg tablet 00:00: mouth [place] 00 every 8 Medical (eight) Branch hours as needed for Nausea and Vomiting (N/V). traMADoL 1-0 Yes [id number] 50mg Take 1 Univers (ULTRAM) 50 9-01 tablet by ity of mg tablet 00:00: mouth [place] 00 every 6 Medical (six) Branch hours as needed for Pain (scale 7-10). Indication s: acute pain benzonatate 2020-0 Yes [id number] 200mg Take 1 Univers 200 mg 9-01 capsule by ity of capsule 00:00: mouth 3 [place] 00 (three) Medical times Branch daily as needed for Cough. ondansetron 2021-0 Yes [id number] 4mg Take 1 Univers (ZOFRAN) 4 9-01 tablet by ity of mg tablet 00:00: mouth [place] 00 every 8 Medical (eight) Branch hours as needed for Nausea and Vomiting (N/V). traMADoL 2021-0 Yes [id number] 50mg Take 1 Univers (ULTRAM) 50 9-01 tablet by ity of mg tablet 00:00: mouth [place] 00 every 6 Medical (six) Branch hours as needed for Pain (scale 7-10). Indication s: acute pain benzonatate 2021-0 Yes [id number] 200mg Take 1 Univers 200 mg 9-01 capsule by ity of capsule 00:00: mouth 3 [place] 00 (three) Medical times Branch daily as needed for Cough. ondansetron 0 Yes [id number] 4mg Take 1 Univers (ZOFRAN) 4 - tablet by ity of mg tablet 00:00: mouth [place] 00 every 8 Medical (eight) Branch hours as needed for Nausea and Vomiting (N/V). traMADoL 0 Yes [id number] 50mg Take 1 Univers (ULTRAM) 50 - tablet by ity of mg tablet 00:00: mouth [place] 00 every 6 Medical (six) Branch hours as needed for Pain (scale 7-10). Indication s: acute pain amoxicillin 2020-0 No 1mg 500 mg 8-17 capsule 00:00: 00 Flagyl 500 0 No 1mg mg tablet 6-19 00:00: 00 Diflucan 2020-0 No 1mg 150 mg 6-19 tablet 00:00: 00 Macrobid 2020-0 No 1mg 100 mg 6-19 capsule 00:00: 00 acetaminoph 2020-0 Yes [id number] 1{tbl} Take 1 Un viktoriya en-codeine 4-22 tablet by ity of 300-30 mg 00:00: mouth [place] tablet 00 every 4 Medical (four) Branch hours as needed for Pain (scale 4-6). Indication s: acute pain naproxen 2020-0 Yes [id number] 500mg Take 1 U nivers (NAPROSYN) 4-22 [...] Indication s: acute pain naproxen 2020-0 Yes [id number] 500mg Take 1 U nivers (NAPROSYN) 4-22 [...] 4-6). Indication s: acute pain naproxen Yes [id number] 500mg Take 1 U nivers (NAPROSYN) 4-22 tablet by ity of 500 mg 00:00: mouth 2 [place] tablet 00 (two) Medical times Branch daily with meals. acetaminoph Yes [id number] 1{tbl} Take 1 Un viktoriya en-codeine 4-22 tablet by ity of 300-30 mg 00:00: mouth [place] tablet 00 every 4 Medical (four) Branch hours as needed for Pain (scale 4-6). Indication s: acute pain naproxen Yes [id number] 500mg Take 1 U nivers (NAPROSYN) 4-22 tablet by ity of 500 mg 00:00: mouth 2 [place] tablet 00 (two) Medical times Branch daily with meals. chlordiazep 2019-1 No 1mg oxide 25 mg 1-09 capsule 00:00: 00 Dose 2019-0 No Unknown 4-15 00:00: 00 prednisone 2019-0 No 1mg 20 mg 4-15 tablet 00:00: 00 Dose 2019-0 No Unknown 4-15 00:00: 00 chlorhexidi 2019-0 No 15% ne 4-15 gluconate 00:00: 0.12 % 00 mouthwash Lidocaine 2019-0 No 10% Viscous 2 % 4-15 mucosal 00:00: solution 00 prednisone 2019-0 No 1mg 20 mg 1-21 tablet 00:00: 00 azithromyci 2019-0 No mg n 250 mg 1-21 tablet 00:00: 00 Bromfed DM 2019-0 No 5mg/5 2 mg-30 1-21 mL mg-10 mg/5 00:00: mL oral 00 syrup fluticasone 2018-0 No 2mcg/ac propionate 9-30 tuation 50 00:00: mcg/actuati 00 on nasal spray,suspe nsion Tessalon 2018-0 No 12mg Perles 100 9-30 mg capsule 00:00: 00 Lidocaine 2018-0 No 10% Viscous 2 % 9-30 mucosal 00:00: solution 00 Lidocaine 2018-0 No 10% Viscous 2 % 9-30 mucosal 00:00: solution 00 dexamethaso 2018-0 No 5mg/5 ne 0.5 mg/5 9-30 mL mL oral 00:00: elixir 00 amoxicillin 2019-0 No 1mg 500 mg 4-22 capsule 00:00: 00 prednisone 2019-0 No mg 10 mg 4-22 tablet 00:00: 00 famotidine 2018-0 Yes 20mg Take 1 Unive rs (PEPCID) 20 9-08 tablet by ity of mg tablet 00:00: mouth 2 (two) Medical times Branch daily. famotidine 2018-0 Yes 20mg Take 1 Unive rs (PEPCID) 20 9-08 tablet by ity of mg tablet 00:00: mouth 2 (two) Medical times Branch daily. famotidine 2018-0 Yes 20mg Take 1 Unive rs (PEPCID) 20 9-08 tablet by ity of mg tablet 00:00: mouth 2 (two) Medical times Branch daily. famotidine 2018-0 Yes 20mg Take 1 Unive rs (PEPCID) 20 9-08 tablet by ity of mg tablet 00:00: mouth 2 (two) Medical times Branch daily. GNP GNP 2017-0 Yes Doyle 1 tablet Common Omeprazole Omeprazole 7-16 Alex Sp sheeba 00:00: - 00 [facility] Benzocaine Benzocaine 2017-0 2018- No Doyle 1 lozenge Common 716 09-14 Alex as needed Spirit 00:00: 00:00 - [facility] 00 :00 [facility] CVS CVS 2017-0 Yes Doyle 1 spray in Commo n Fluticasone Fluticasone 6-05 Alex each Spirit Propionate Propionate 00:00: nostril - [facility] ProAir HFA ProAir HFA 0 Yes Doyle 2 puffs as Common 6-05 Alex needed Spirit 00:00: - 00 [facility] benzonatate 2018-0 Yes 100mg Take 1 Uni [...] as needed for Cough. metroNIDAZO 2016-04 Yes [id number] 500mg Take 1 Univers LE (FLAGYL) 1-09 tablet by ity of 500 mg 00:00: mouth 2 [place] tablet 00 (two) Medical times Branch daily. metroNIDAZO 2016-04 Yes [id number] 500mg Take 1 Univers LE (FLAGYL) 1-09 tablet by ity of 500 mg 00:00: mouth 2 [place] tablet 00 (two) Medical times Branch daily. metroNIDAZO 2016-04 Yes [id number] 500mg Take 1 Univers LE (FLAGYL) 1-09 tablet by ity of 500 mg 00:00: mouth 2 [place] tablet 00 (two) Medical times Branch daily. metroNIDAZO 2016-04 Yes [id number] 500mg Take 1 Univers LE (FLAGYL) 1-09 tablet by ity of 500 mg 00:00: mouth 2 [place] tablet 00 (two) Medical times Branch daily. triamcinolo 2016-04 No 1% ne 0-02 acetonide 00:00: 0.1 % 00 dental paste Dose 2016-04 No Unknown 0-02 00:00: 00 prednisone 2016-04 No 1mg 20 mg 0-02 tablet 00:00: 00 ibuprofen 2016-04 No 1mg 800 mg 0-02 tablet 00:00: 00 Lidocaine 2016-04 No 10% Viscous 2 % 0-02 mucosal 00:00: solution 00 amoxicillin No 1mg 500 mg 5-26 tablet 00:00: 00 medroxyPROG Yes [id number] 150mg Univers ESTERone 1-24 ity of (DEPO-PROVE 20:15: [place] RA) 00 Medical injection Branch 150 mg medroxyPROG Yes [id number] 150mg Univers ESTERone 1-24 ity of (DEPO-PROVE 20:15: [place] RA) 00 Medical injection Branch 150 mg medroxyPROG Yes [id number] 150mg Univers ESTERone 1-24 ity of (DEPO-PROVE 20:15: [place] RA) 00 Medical injection Branch 150 mg medroxyPROG 2017-0 Yes [id number] 150mg Univers ESTERone 1-24 ity of (DEPO-PROVE 20:15: [place] RA) 00 Medical injection Branch 150 mg Cetirizine Cetirizine Yes Doyle 1 tablet Common HCl HCl Alex [facility] Immunizations Ordered Filled Immunization Date Status Comments Sour e Immunization Name Name [facility] 2017-08-14 Completed University of 00:00:00 [facility] 2017-08-14 Completed University of 00:00:00 [facility] 2017-08-14 Completed University of 00:00:00 [facility] Branch [facility] 2017-08-14 Completed University of 00:00:00 [facility] Branch [facility] 2017-04-16 Completed University of 00:00:00 [facility] Branch [facility] 2017-04-16 Completed University of 00:00:00 [facility] Branch [facility] 2017-04-16 Completed University of 00:00:00 [facility] 2017-04-16 Completed University of 00:00:00 [facility] 2017-02-14 Completed University of 00:00:00 [facility] Branch [facility] 2017-02-14 Completed University of 00:00:00 [facility] 2017-02-14 Completed University of 00:00:00 [facility] 2017-02-14 Completed University of 00:00:00 [facility] PPD (TB) 2008-06-01 Completed University of 00:00:00 [facility] PPD (TB) 2008-06-01 Completed University of 00:00:00 [facility] PPD (TB) 2008-06-01 Completed University of 00:00:00 [facility] Td 2007-04-08 Completed University of 00:00:00 [facility] Td 2007-04-08 Completed University of 00:00:00 [facility] Td 2007-04-08 Completed University of 00:00:00 [facility] Td 2007-04-08 Completed University of 00:00:00 [facility] Vital Signs Vital Name Observation Time Observation Value Comments Source Systolic blood 2022-02-12 16:22:00 94 mm[Hg] Univer sity of pressure [facility] Diastolic blood 2022-02-12 16:22:00 77 mm[Hg] Unive rsity of pressure [place] [facility] Heart rate 2022-02-12 16:22:00 110 /min [facility]i [facility] [place] [facility] Body temperature 2022-02-12 16:22:00 35.72 Mitra Univ ersity of [place] [facility] Respiratory rate 2022-02-12 16:22:00 18 /min Univ ersity of [place] [facility] Body height 2022-02-12 16:22:00 160 cm [facility]i ty [facility] [place] [facility] Body weight 2022-02-12 16:22:00 49.896 kg [facility]i [facility] [place] [facility] BMI 2022-02-12 16:22:00 19.49 kg/m2 [facility]i ty [facility] [place] [facility] Oxygen saturation in 2022-02-12 16:22:00 99 /min University of Arterial blood by [facility] Pulse oximetry Branch Systolic blood 2021-07-06 18:31:00 104 mm[Hg] Univer sity of pressure [place] [facility] Diastolic blood 2021-07-06 18:31:00 70 mm[Hg] Unive rsity of pressure [place] [facility] Heart rate 2021-07-06 18:31:00 94 /min [facility]i ty [facility] [place] [facility] Body temperature 2021-07-06 18:31:00 36.61 Mitra Univ ersity [facility] [place] [facility] Respiratory rate 2021-07-06 18:31:00 18 /min Univ ersity [facility] [place] [facility] Body weight 2021-07-06 18:31:00 52.164 kg [facility]i ty [facility] [place] [facility] BMI 2021-07-06 18:31:00 20.37 kg/m2 [facility]i ty [facility] [place] [facility] Oxygen saturation in 2021-07-06 18:31:00 100 /min University of Arterial blood by [place] [facility] Pulse oximetry Branch Systolic blood 2020-12-08 02:00:00 104 mm[Hg] Univer sity of pressure [place] [facility] Diastolic blood 2020-12-08 02:00:00 70 mm[Hg] Unive rsity of pressure [place] [facility] Heart rate 2020-12-08 02:00:00 68 /min [facility]i ty [facility] [place] [facility] Respiratory rate 2020-12-08 02:00:00 18 /min Univ ersity [facility] [place] [facility] Oxygen saturation in 2020-12-08 02:00:00 99 /min University of Arterial blood by [facility] Pulse oximetry [place] Body temperature 2020-12-08 01:00:00 37.28 [facility]ra [facility] height 2020-12-07 23:28:00 160 cm [facility] Body weight 2020-12-07 23:28:00 52.164 kg [facility] BMI 2020-12-07 23:28:00 20.37 kg/m2 [facility] BP Systolic 2022-03-05 15:12:00 105 mm[Hg] BP Diastolic 2022-03-05 15:12:00 58 mm[Hg] Weight Measured 2022-03-05 15:12:00 117.00 pounds Height Measured 2022-03-05 15:12:00 63.00 inches Body Temperature 2022-03-05 15:12:00 98.00 degrees Heart Rate 2022-03-05 15:12:00 89.00 /min Respiratory Rate 2022-03-05 15:12:00 18.00 /min BP Systolic 2020-12-06 15:31:00 BP Diastolic 2020-12-06 15:31:00 Weight Measured 2020-12-06 15:31:00 120.00 pounds Height Measured 2020-12-06 15:31:00 Body Temperature 2020-12-06 15:31:00 Heart Rate 2020-12-06 15:31:00 Respiratory Rate 2020-12-06 15:31:00 BP Systolic 2020-09-14 15:30:00 109 mm[Hg] BP Diastolic 2020-09-14 15:30:00 65 mm[Hg] Weight Measured 2020-09-14 15:30:00 121.00 pounds Height Measured 2020-09-14 15:30:00 63.00 inches Body Temperature 2020-09-14 15:30:00 97.90 degrees Heart Rate 2020-09-14 15:30:00 88.00 /min Respiratory Rate 2020-09-14 15:30:00 21.00 /min BP Systolic 2020-06-16 13:51:00 107 mm[Hg] BP Diastolic 2020-06-16 13:51:00 71 mm[Hg] Weight Measured 2020-06-16 13:51:00 119.80 pounds Height Measured 2020-06-16 13:51:00 63.00 inches Body Temperature 2020-06-16 13:51:00 99.00 degrees Heart Rate 2020-06-16 13:51:00 81.00 /min Respiratory Rate 2020-06-16 13:51:00 17.00 /min BP Systolic 2020-05-20 13:41:00 119 mm[Hg] BP Diastolic 2020-05-20 13:41:00 69 mm[Hg] Weight Measured 2020-05-20 13:41:00 121.40 pounds Height Measured 2020-05-20 13:41:00 63.00 inches Body Temperature 2020-05-20 13:41:00 97.50 degrees Heart Rate 2020-05-20 13:41:00 89.00 /min Respiratory Rate 2020-05-20 13:41:00 17.00 /min BP Systolic 2020-02-15 12:11:00 99 mm[Hg] BP Diastolic 2020-02-15 12:11:00 70 mm[Hg] Weight Measured 2020-02-15 12:11:00 216.05 pounds Height Measured 2020-02-15 12:11:00 63.00 inches Body Temperature 2020-02-15 12:11:00 98.00 degrees Heart Rate 2020-02-15 12:11:00 77.00 /min Respiratory Rate 2020-02-15 12:11:00 16.00 /min BP Systolic 2019-10-22 17:02:00 105 mm[Hg] BP Diastolic 2019-10-22 17:02:00 71 mm[Hg] Weight Measured 2019-10-22 17:02:00 121.60 pounds Height Measured 2019-10-22 17:02:00 64.00 inches Body Temperature 2019-10-22 17:02:00 99.00 degrees Heart Rate 2019-10-22 17:02:00 88.00 /min Respiratory Rate 2019-10-22 17:02:00 16.00 /min BP Systolic 2019-04-28 13:16:00 111 mm[Hg] BP Diastolic 2019-04-28 13:16:00 71 mm[Hg] Weight Measured 2019-04-28 13:16:00 120.40 pounds Height Measured 2019-04-28 13:16:00 64.00 inches Body Temperature 2019-04-28 13:16:00 98.70 degrees Heart Rate 2019-04-28 13:16:00 98.00 /min Respiratory Rate 2019-04-28 13:16:00 17.00 /min BP Systolic 2019-01-21 14:28:00 100 mm[Hg] BP Diastolic 2019-01-21 14:28:00 70 mm[Hg] Weight Measured 2019-01-21 14:28:00 122.20 pounds Height Measured 2019-01-21 14:28:00 64.00 inches Body Temperature 2019-01-21 14:28:00 98.30 degrees Heart Rate 2019-01-21 14:28:00 80.00 /min Respiratory Rate 2019-01-21 14:28:00 18.00 /min BP Systolic 2019-01-05 15:26:00 111 mm[Hg] BP Diastolic 2019-01-05 15:26:00 78 mm[Hg] Weight Measured 2019-01-05 15:26:00 121.20 pounds Height Measured 2019-01-05 15:26:00 64.00 inches Body Temperature 2019-01-05 15:26:00 98.20 degrees Heart Rate 2019-01-05 15:26:00 76.00 /min Respiratory Rate 2019-01-05 15:26:00 16.00 /min Procedures Procedure Date / Time Performed Performing Clinician Sourc e XR SHOULDER 2+ VW 2022-02-12 18:25:05 Jori Cabrera [facility] CONSENT/REFUSAL FOR 2022-02-12 16:16:40 Doctor Unassigned, No [facility] [place] [facility] AND Name [facility] TREATMENT CT THORAX W CONTRAST 2021-07-06 21:11:00 Tre Ruiz [facility] POCT TEST 2021-07-06 19:00:00 Tre Ruiz [facility] CONSENT/REFUSAL FOR 2021-07-06 17:48:23 Doctor Unassigned, No [facility] [place] DIAGNOS[facility] AND Name Medical Branch TREATMENT XR CHEST 1 VW 2020-12-08 02:24:09 Drea Doss [facility] COMP. METABOLIC PANEL 2020-12-08 01:08:00 Drea Doss [facility] ([id number]) Medical Branch CBC WITH DIFF 2020-12-08 01:08:00 Drea Doss [facility] URINALYSIS 2020-12-08 01:08:00 Drea Doss [facility] EBV-MONONUCLEOSIS 2020-12-08 01:08:00 Drea Doss [facility] SCREEN Medical Branch RAPID STREP SCREEN FOR 2020-12-08 01:08:00 Drea Doss [facility] GROUP A Medical Branch COVID-19 (ID NOW RAPID 2020-12-08 01:08:00 Drea Doss [facility] TESTING) Medical Branch POCT TEST 2020-12-08 01:05:00 Drea Doss [facility] NOTICE OF PRIVACY 2020-12-07 23:19:59 Doctor Unassigned, No [facility] PRACTICES Name Medical Branch CONSENT/REFUSAL FOR 2020-12-07 23:18:56 Doctor Unassigned, No [facility] DIAGNOSIS AND Name Medical Branch TREATMENT Plan of Care Planned Activity Planned Date Details Comments Source Goal Plan of Care Note [code = 93156-4] Goal Plan of Care Note [code = 53316-3] Goal Plan of Care Note [code = 28229-5] Goal Plan of Care Note [code = 37257-1] Goal Plan of Care Note [code = 77799-3] Goal Plan of Care Note [code = 83760-6] Goal Plan of Care Note [code = 84330-8] Goal Plan of Care Note [code = 47812-1] Goal Plan of Care Note [code = 27172-3] Goal Plan of Care Note [code = 98259-3] Goal Plan of Care Note [code = 80239-7] Goal Plan of Care Note [code = 95061-4] Goal Plan of Care Note [code = 17296-9] Goal Plan of Care Note [code = 92990-7] Goal Plan of Care Note [code = 98639-6] Goal Plan of Care Note [code = 22944-1] Goal Plan of Care Note [code = 24171-9] Goal Plan of Care Note [code = 62979-3] Goal Plan of Care Note [code = 49205-2] Goal Plan of Care Note [code = 00667-2] Goal Plan of Care Note [code = 45098-0] Goal Plan of Care Note [code = 06377-9] Goal Plan of Care Note [code = 51887-3] Goal Plan of Care Note [code = 34931-9] Goal Plan of Care Note [code = 42199-9] Goal Plan of Care Note [code = 39048-3] Goal Plan of Care Note [code = 34843-5] Goal Plan of Care Note [code = 04281-8] Goal Plan of Care Note [code = 16324-7] Goal Plan of Care Note [code = 15460-9] Goal Plan of Care Note [code = 54073-9] Goal Plan of Care Note [code = 14613-7] Encounters Start End Encounter Admission Attending Care Care Encounter Source Date/Time Date/Time Type Type Clinicians Facility Department ID 2021-02-06 Emergency [facility] [id number] Univers 19:48:10 [facility] 2021-02-05 Emergency [facility] [id number] Univers 14:44:43 [facility] 2021-02-04 Emergency [facility] [id number] Univers 07:00:35 [facility] 2022-03-05 2022-03-05 Outpatient [facility] SFA [id number] Javier 14:57:25 14:57:25 1128 F Robbie 2022-03-05 2022-03-05 Outpatient [id number] 00:00:00 00:00:00 Visit [id number] 2022-02-12 2022-02-12 Emergency Sonal CABRERA DCRANGEL ERT [id number] Univers 10:24:00 13:28:00 JORI chambers [facility] 2022-02-12 2022-02-12 Emergency Deborah [facility] [id number] Univers 10:24:00 13:28:00 Jori ERAZO [id number] i ty of GRIFFITH [id number] [facility] [id number] [place] [id number] Branch 2021-07-06 2021-07-06 Emergency X RUIZ, [facility] ERT [id number] Univers 13:34:00 18:25:00 TRE ity of [facility] 2021-07-06 2021-07-06 [facility] 1.2.028.056 [id number] [facility] 13:34:00 18:25:00 Tre S YONGCAIO 350.1.13.10 i ty of [place] 4.2.7.2.686 [facility] [id number] [address] 2021-07-06 2021-07-06 Orders Doctor BETTE 1.2.840.[id number] [place] [address] 00:00:00 00:00:00 Only Unassigned, VENTURA 350.1.13.10 ity of [place] [facility] 4.2.7.2.686 [facility] [phone] [place] [address] [place] 2020-12-07 2020-12-07 Emergency Tre Ruiz [facility] 1.2.840.1 [id number] Univers 18:30:00 22:51:00 JeaniecoletteDrea 350.1.13.10 ity of [place] 4.2.7.2.686 [facility] [id number] [address] 2020-02-26 2020-02-26 [facility] 1.2.420.095 [id number] 16:35:00 16:59:00 Raquel Erazo 350.1.13.10 [place] 4.2.7.2.686 [place] [id number] [facility] 2020-02-26 2020-02-26 Orders Doctor BETTE 1.2.840.114 [id number] 00:00:00 00:00:00 Only Unassigned, VENTURA 350.1.13.10 [place] [facility] 4.2.7.2.686 [id number] 2017-11-11 2017-11-11 [facility] 15 [id number] Common 15:45:00 15:45:00 [facility] 2017-10-21 2017-10-21 Outpatient Nestor Adler 14 [id number] Common 13:15:00 13:15:00 [facility] 2017-09-10 2017-09-10 Outpatient Nestor Adler 14 [id number] Common 15:00:00 15:00:00 [facility] Results Test Description Test Time Test Comments Results Result Comments Source POCT TEST 2021-07-06 19:00:00 Test Item Value Reference Range Interpretation Comme nts POCT PREG (test code = 1605) negative On board controls acceptable with C Line (test code = 3574) present POCT PREG LOT # (test code = 3575) [id number] POCT PREG TEST DATE (test code = 3576) 2022-06-05 Lab Interpretation (test code = 51301-8) Normal [facility] WITH [id number] 02:41:11 Test Item Value Reference Range Interpretation Comments WBC (test code = See_Comment L [Automated 1890-2) message] The sy stem which generated this result transmitted reference range : 4.30 - 11.10 10*3/?L. The reference range was not used to interpret this result as normal/abnormal . RBC (test code = See_Comment [Automated 585-8) message] The sy stem which generated this [...] (test code = 36.7 fL 39.0-49.9 L 02085-0) RDW-CV (test code = 12.1 % 12.0-15.5 788-0) PLT (test code = See_Comment [Automated 777-3) message] The sy stem which generated this result transmitted reference range : 166 - 358 10*3/ ?L. The reference r sera was not used to interpret this result as normal/abnormal . MPV (test code = 9.9 fL 9.5-12.9 86088-5) NRBC/100 WBC (test See_Comment [Automat ed code = 6002668423) message] The system which generated this result transmitted reference range : 0.0 - 10.0 /100 WBCs. The refer ence range was not u sed to interpret th is result as normal/abnormal . NRBC x10^3 (test code <0.01 See_Comment [Auto mated = 2799592756) message] The s ystem which generated this result transmitted reference range : 10*3/?L. The reference range was not used to interpret this result as normal/abnormal . GRAN MAT (NEUT) % 61.4 % (test code = 770-8) IMM GRAN % (test code 0.30 % = 5416122532) LYMPH % (test code = 24.0 % 736-9) MONO % (test code = 12.8 % 5905-5) EOS % (test code = 0.9 % 713-8) BASO % (test code = 0.6 % 706-2) GRAN MAT x10^3(ANC) 1.97 10*3/uL 1.88-7.09 (test code = 1702084206) IMM GRAN x10^3 (test <0.03 0.00-0.06 code = 9004397441) LYMPH x10^3 (test code 0.77 10*3/uL 1.32-3.29 L = 731-0) MONO x10^3 (test code 0.41 10*3/uL 0.33-0.92 = 742-7) EOS x10^3 (test code = 0.03 10*3/uL 0.03-0.39 711-2) BASO x10^3 (test code <0.03 0.01-0.07 = 704-7) LG GRAN LYMPHS (test Rare Rare code = 5538234209) REACT LYMPHS (test Rare code = 5614426542) Lab Interpretation Abnormal (test code = 22358-3) [facility] [id number] 01:55:23 Test Item Value Reference Range Interpretation Comments EBV Mononucleosis Screen (test code Negative Negative = 5609127756) Lab Interpretation (test code = Normal 94249-0) [facility]2021-[facility]-02 01:45:45 Test Item Value Reference Range Interpretation Comments APPEARANCE (test code = Cloudy Clear A 6201346484) COLOR (test code = Yellow Yellow 7268998939) PH (test code = 4.8-8.0 7194176245) SP GRAVITY (test code = 1.003-1.030 0024824611) GLU U QUAL (test code = Normal Normal 2609379295) BLOOD (test code = Negative Negative Interfere nce from 8204971386) ascorbic acid m ay cause false neg ative results. KETONES (test code = Negative Negative 3557073485) PROTEIN (test code = Negative Negative 2887-8) UROBILIN (test code = Normal Normal 6154409039) BILIRUBIN (test code = Negative Negative 6079090003) NITRITE (test code = Negative Negative 3716770770) LEUK JULIEN (test code = Negative Negative 8348567901) RBC/HPF (test code = See_Comment [Autom ated message] 9176903325) The system Leatt generated this result transmitted ref erence range: 0 - 3 HP F. The reference range was not used to int erpret this result as normal/abnormal . WBC/HPF (test code = <1 See_Comment [Autom ated message] 5105316275) The system Leatt generated this result transmitted ref erence range: 0 - 5 HP F. The reference range was not used to int erpret this result as normal/abnormal . BACTERIA (test code = Few Negative A 6351384992) MUCOUS (test code = Slight Negative LPF A 7388218497) AMORPHOUS (test code = Moderate Rare HPF A 4139895688) SQ EPITH (test code = HPF 9860618572) Lab Interpretation (test Abnormal code = 40284-4) [facility] STREP SCREEN FOR GROUP [id number] 01:37:45 Test Item Value Reference Range Interpretation Comments Streptococcus pyogenes (group A) Negative Negative antigen (test code = 39908-7) Lab Interpretation (test code = Normal 55872-1) [facility] (ID NOW RAPID TESTING)2020-12-08 01:31:50 Test Item Value Reference Range Interpretation Comments SARS-CoV-2 Rapid ID NOW Not Detected Not Detected (test code = 80228-0) STEFFANIE (test code = STEFFANIE) ID NOW COVID-19 Assay is an isothermal nucleic acid amplification test intended for the qualitative detection of nucleic acid from SARS-CoV-2 viral RNA in nasopharyngeal (VISION REHABILITATION THERAPIST) specimens. It is used under Emergency Use [...] indicated. Lab Interpretation Normal (test code = 42112-6) [facility]. METABOLIC PANEL (27618)2020-12-08 01:30:28 Test Item Value Reference Range Interpretation Comments NA (test code = 139 mmol/L 135-145 5980926984) K (test code = 3.8 mmol/L 3.5-5.0 5399827035) CL (test code = 100 mmol/L 98-108 4762904333) CO2 TOTAL (test code = 29 mmol/L 23-31 6308222807) AGAP (test code = 2-16 0529010860) BUN (test code = 9 mg/dL 7-23 7334285961) GLUCOSE (test code = 92 mg/dL 70-110 2565757913) CREATININE (test code = 0.70 mg/dL 0.50-1.04 1771778909) TOTAL BILI (test code = 0.2 mg/dL 0.1-1.1 7193318506) CALCIUM (test code = 9.5 mg/dL 8.6-10.6 1191761887) T PROTEIN (test code = 8.1 g/dL 6.3-8.2 3508862944) ALBUMIN (test code = 4.6 g/dL 3.5-5.0 0665566290) ALK PHOS (test code = 66 U/L 34-122 4319842871) ALTv (test code = 46 U/L 5-35 H 2-6) AST(SGOT) (test code = 45 U/L 13-40 H 5935509089) eGFR (test code = mL/min/1.73m2 6800697190) STEFFANIE (test code = STEFFANIE) Association of [...] tests). Lab Interpretation Abnormal (test code = 42527-1) [facility] [id number] 01:05:00 Test Item Value Reference Range Interpretation Comments POCT PREG (test code = 1605) neg On board controls acceptable with yes C Line (test code = 3574) POCT PREG LOT # (test code = 3575) [id number] POCT PREG TEST DATE (test 04/07/2022 code = 3576) Lab Interpretation (test code = Normal 47997-8) [facility] BY [id number] 00:00:00 Test Item Value Reference Range Interpretation Comments RSV BY DFA (test code = 14376) Negative SOURCE (test code = 46905) Not Provided RSV BY [id number] 00:00:00 Test Item Value Reference Range Interpretation Comments RSV BY DFA (test code = 76145) Negative SOURCE (test code = 72725) Not Provided SARS-CoV-2 (COVID-19) by RT-PCR (HIGH RISK)2020-11-30 00:00:00 Test Item Value Reference Range Interpretation Comments SARS-CoV-2 INTERPRETATION (test NEGATIVE code = 75698) SOURCE (test code = 29644) NOT SPECIFIED SARS-CoV-2 (COVID-19) by RT-PCR (HIGH RISK)2020-11-30 00:00:00 Test Item Value Reference Range Interpretation Comments SARS-CoV-2 INTERPRETATION (test NEGATIVE code = 55366) SOURCE (test code = 65011) NOT SPECIFIED HIV AB/AG COMBO RFLX [id number] 00:00:00 Test Item Value Reference Range Interpretation Comments HIV 1/2 4TH GEN, RFLX CONF TEST NOT PERFORMED (test code = 3514) HIV AB/AG COMBO RFLX [id number] 00:00:00 Test Item Value Reference Range Interpretation Comments HIV 1/2 4TH GEN, RFLX CONF TEST NOT PERFORMED (test code = 3514) [id number] 00:00:00 Test Item Value Reference Range Interpretation Comments RPR RESULT (test code TEST NOT PERFORMED = 3501) RPR TITER (test code TEST NOT PERFORMED TITER = 3500) [id number] 00:00:00 Test Item Value Reference Range Interpretation Comments RPR RESULT (test code TEST NOT PERFORMED = 3501) RPR TITER (test code TEST NOT PERFORMED TITER = 3500) [id number] 00:00:00 Test Item Value Reference Range Interpretation Comments RPR RESULT (test code TEST NOT PERFORMED = 3501) RPR TITER (test code TEST NOT PERFORMED TITER = 3500) PAP TEST, THINPREP, [id number] 00:00:00 Test Item Value Reference Range Interpretation Comments SOURCE: (test code = 8001) Cervical/Endocervi elvis SLIDES: (test code = 8011) 1 LMP: (test code = 8021) 2019-10-07 SPECIMEN ADEQUACY: (test (NOTE) code = 68358) INTERPRETATION: (test code NILM/NO EPITH. = 35562) ABNORMALITY;SEE BELOW OTHER COMMENTS: (test code (NOTE) = 8081) SPARERIBS TRIMMER: (test ROB code = 8101) SHABBIR LAM(ASCP)CHARLES Godinez PATHOLOGIST INTERPRETATION Albina Lopez BY: (test code = 8122) Hung LOCATION: (test code = (NOTE) 45301) CPT: (test code = 8140) (NOTE) PAP TEST, THINPREP, [id number] 00:00:00 Test Item Value Reference Range Interpretation Comments SOURCE: (test code = 8001) Cervical/Endocervi elvis SLIDES: (test code = 8011) 1 LMP: (test code = 8021) 2019-10-07 SPECIMEN ADEQUACY: (test (NOTE) code = 57458) INTERPRETATION: (test code NILM/NO EPITH. = 12574) ABNORMALITY;SEE BELOW OTHER COMMENTS: (test code (NOTE) = 8081) SPARERIBS TRIMMER: (test ROB code = 8101) SHABBIR LAM(ASCP)CHARLES Godinez PATHOLOGIST INTERPRETATION Albina Lopez BY: (test code = 8122) Hung LOCATION: (test code = (NOTE) 53549) CPT: (test code = 8140) (NOTE) GC AND CHLAMYDIA AMPLIFIED, [id number] 00:00:00 Test Item Value Reference Range Interpretation Comments GONORRHEA, TMA (test code = 16856) NEGATIVE CHLAMYDIA, TMA (test code = 84999) NEGATIVE GC AND CHLAMYDIA AMPLIFIED, [id number] 00:00:00 Test Item Value Reference Range Interpretation Comments GONORRHEA, TMA (test code = 07762) NEGATIVE CHLAMYDIA, TMA (test code = 39578) NEGATIVE HPV HIGH RISK WITH GENOTYPE, [id number] 00:00:00 Test Item Value Reference Range Interpretation Comments HPV HIGH RISK INTERP (test code = NEGATIVE 49670) HPV 16 (test code = 47510) NEGATIVE HPV 18 (test code = 75117) NEGATIVE HPV, HR, OTHER GENOTYPES (test code NEGATIVE = 09255) HPV HIGH RISK WITH GENOTYPE, [id number] 00:00:00 Test Item Value Reference Range Interpretation Comments HPV HIGH RISK INTERP (test code = NEGATIVE 91220) HPV 16 (test code = 47326) NEGATIVE HPV 18 (test code = 92588) NEGATIVE HPV, HR, OTHER GENOTYPES (test code NEGATIVE = 87174) SARS-CoV-2 (COVID-19) by RT-PCR (HIGH RISK)2019-10-07 00:00:00 Test Item Value Reference Range Interpretation Comments SARS-CoV-2 INTERPRETATION (test NEGATIVE code = 23360) SOURCE (test code = 14627) NOT SPECIFIED SARS-CoV-2 (COVID-19) by RT-PCR (HIGH RISK)2019-10-07 00:00:00 Test Item Value Reference Range Interpretation Comments SARS-CoV-2 INTERPRETATION (test NEGATIVE code = 06951) SOURCE (test code = 14654) NOT SPECIFIED VAGINAL PATHOGENS DNA [id number] 00:00:00 Test Item Value Reference Range Interpretation Comments MELL SPECIES (test code = 74642) NEGATIVE G. VAGINALIS (test code = 69102) NEGATIVE T. VAGINALIS (test code = 11368) NEGATIVE VAGINAL PATHOGENS DNA [id number] 00:00:00 Test Item Value Reference Range Interpretation Comments MELL SPECIES (test code = 77402) NEGATIVE G. VAGINALIS (test code = 54415) NEGATIVE T. VAGINALIS (test code = 96490) NEGATIVE"
[2022-03-16] MEDS ORDERED: LIDOCAINE VISCOUS 2% SOLN 15 ML UDC ONE (02:38)
[2022-03-16 03:01] LABS: Absolute Lymphocytes (CBC) 1.3 K/uL (0.7-4.9); Hematocrit 40.5 % (36.0-45.0); Lymphocytes % 10.9 % (15.3-44.8); MCV 87.2 fL (80-100); MPV 6.9 fL (7.6-11.3); RBC Red Blood Cell Count 4.65 M/uL (3.86-4.86)
[2022-03-16] MEDS ORDERED: CEFAZOLIN SODIUM 1 GM/VIAL ONE (03:04)
[2022-03-16] MEDS ORDERED: ONDANSETRON 4 MG/2 ML VIAL ONE (03:05)
[2022-03-16] MEDS ORDERED: LORazepam 2 MG/ML VIAL ONE (03:05)
[2022-03-16] MEDS ORDERED: MORPHINE 4 MG/ML SYR ONE (03:05)
[2022-03-16] MEDS ORDERED: NA CHLORIDE 0.9% 100 ML IV ONE (03:05)
[2022-03-16 03:16] LABS: Potassium 3.4 mmol/L (3.5-5.1)
[2022-03-16] MEDS ORDERED: LIDOCAINE 1% MPF 5 ML VIAL ONE (03:22)
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
[2022-03-16] MEDS ORDERED: BACI/NEOMYCIN/POLY OINT 15GM TOP ONE (04:34)
[2022-03-16] MEDS ORDERED: HYDROCODONE/APAP 10/325 TAB ONE (04:53)
[2022-03-16 05:19] VITALS: BP 95/67; TEMP 97.9; O2SAT 98
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
== END 2022-03-16 05:07 | disposition home or self-care (01) ==
LOC: ER 02:13
PROC: 0JQ10ZZ Repair Face Subcutaneous Tissue and Fascia, Open Approach (ICD-10-PCS; principal; 2022-03-16)
DX: S01.511A Laceration without foreign body of lip, initial encounter (principal); S01.512A Laceration without foreign body of oral cavity, initial encounter; S01.81XA Laceration without foreign body of other part of head, initial encounter; K08.409 Partial loss of teeth, unspecified cause, unspecified class
CPT/HCPCS: 85025; 80048; 36415; 86900; 86850; 84703; 86901; 70450; 71250; 72125; 70486; 76377; 96375; 96374; 99284; 12011; J2001; J2405; J0690